=== PATIENT | female | born 1945 | race Caucasian/White ===

== ENCOUNTER → 2017-06-14 | Outpatient (CLI) | payer MEDICARE ==
--- NOTE | 2017-06-14 12:40 | CTL ---
EXAMINATION TYPE: CT Low Dose Lung DATE OF EXAM ORDERED: 06/14/2017 COMPARISON: None HISTORY: . Low Dose CT Lung Screening CT DLP: [address] CTDI: 2.03 mGy IV CONTRAST USED: None. SCREENING VISIT: First visit COMPARISON: None. TECHNIQUE: Low dose computed tomography scan was performed through the chest at 1 millimeter thick se ctions and reconstructed images in the coronal plane at [address] DIAGNOSTIC QUALITY: Satisfactory FINDINGS: LUNG NODULES: Not presentLeft lung: no nodules identified.Right lung: no nodules identified. LUNGS: COPD: Severity: None Fibrosis: Severity:None Lymph nodes: None Other findings: Biapical scarring noted as well as scar formation left lower lobe. RIGHT PLEURAL SPACE: Effusion: None Calcification: None Thickening: None Pneumothorax: None LEFT PLEURAL SPACE: Effusion: None Calcification: None Thickening: None Pneumothorax: None HEART: Heart Size: Mildly enlarged Coronary calcification: Mild Pericardial effusion: None OTHER FINDINGS: Upper abdomen: No significant abnormality Bony thorax: Degenerative changes Supraclavicular region: No significant abnormalityOther: No significant abnormalityI IMPRESSION: Negative FOLLOW UP CT CHEST RECOMMENDATION: Follow-up screening in one year CT LUNG RAD: Category 1 negative LUNG RAD CATEGORY 1
[2017-06-14 12:56] LABS: Basophils # (A) 0.1 k/uL (0-0.2); Basophils % (A) 1 %; CH 31.8; CHCM 31.6; Eosinophils # (A) 0.2 k/uL (0-0.7); Eosinophils % (A) 3 %; HCT 42.5 % (34.0-46.0); HDW 2.37; HGB 13.7 gm/dL (11.4-16.0); Luc # (Auto) 0.06; Luc % (Auto) 1; Lymphocytes # (A) 2.1 k/uL (1.0-4.8); Lymphocytes % (A) 31 %; MCH 32.6 pg (25.0-35.0); MCHC 32.2 g/dL (31.0-37.0); MCV 101.4 fL (80.0-100.0); Macrocytosis Slight; Monocytes # (A) 0.4 k/uL (0-1.0); Monocytes % (A) 6 %; Neutrophils # (A) 3.9 k/uL (1.3-7.7); Neutrophils % (A) 58 %; RBC 4.19 m/uL (3.80-5.40); RDW 15.3 % (11.5-15.5); WBC 6.7 k/uL (3.8-10.6); WBC (Perox) 6.55
[2017-06-14 13:08] LABS: ALT 35 U/L (9-52); AST 26 U/L (14-36); Alkaline Phosphatase 89 U/L (38-126); Anion Gap 8 mmol/L; Blood Urea Nitrogen 11 mg/dL (7-17); Calcium 9.6 mg/dL (8.4-10.2); Carbon Dioxide 24 mmol/L (22-30); Chloride 105 mmol/L (98-107); Cholesterol 210 mg/dL (<200); Creatine Kinase 64 U/L (30-135); Glucose 83 mg/dL (74-99); HDL Cholesterol 65 mg/dL (40-60); Non-African American GFR(MDRD) >60 (>60 ml/min/1.73 sqM); Potassium 4.6 mmol/L (3.5-5.1); Sodium 137 mmol/L (137-145); Total Bilirubin 0.4 mg/dL (0.2-1.3); Total Protein 7.9 g/dL (6.3-8.2); Uric Acid 5.7 mg/dL (3.7-7.4)
[2017-06-14 13:25] LABS: Appearance,Urine Clear (Clear); Bilirubin,Urine Negative (Negative); Glucose,Urine (UA) Negative (Negative); Ketones,Urine Negative (Negative); Leukocyte Esterase,Urine Negative (Negative); Nitrite,Urine Negative (Negative); PH, Urine 6.5 (5.0-8.0); Protein,Urine Negative (Negative); Specific Gravity,Urine 1.005 (1.001-1.035); UA Billing (MACRO vs. MICRO) CHEM; Urobilinogen,Urine <2.0 mg/dL (<2.0)
== END | disposition home or self-care (01) ==
LOC: RADCTMAIN 11:17
PROVIDERS: ATTEND Internal Medicine
DX: Z12.2 Encounter for screening for malignant neoplasm of respiratory organs (principal); F17.200 Nicotine dependence, unspecified, uncomplicated; E03.9 Hypothyroidism, unspecified; M85.80 Other specified disorders of bone density and structure, unspecified site; D12.6 Benign neoplasm of colon, unspecified
CPT/HCPCS: 84439; 80061; 80053; 82550; 84443; 84550; 85025; 81003; 82306; 83036; 36415; G0297

== ENCOUNTER → 2017-07-28 | Outpatient (CLI) | payer MEDICARE ==
--- NOTE | 2017-07-28 09:29 | BD ---
EXAMINATION TYPE: MG DEXA axial skeleton. DATE OF EXAM: 07/28/2017 COMPARISON: 2014 CLINICAL HISTORY: screening osteoporosis Height: 5'2 Weight: 124 FRAX RISK QUESTIONS: Alcohol (3 or more units per day): no Family History (Parent hip fracture): no Glucocorticoids (More than 3mos): no (Ex: prednisone, prednisolone, methylprednisolone, dexamethasone, and hydrocortisone). History of Fracture in Adulthood: no Secondary Osteoporosis: 1. Type 1 Diabetes: no 2. Hyperthyroidism: no 3. Menopause before 45: no 4. Malnutrition: no 5. Chronic liver disease: no Rheumatoid Arthritis: no Current Tobacco Use: yes RISK FACTORS HISTORY OF: Family History of Osteoporosis: Diet low in dairy products/other sources of calcium: Postmenopausal woman: MEDICATIONS: Thyroid Medications: Which medication: Levothyroxine How Lon months Additional Medications: Additional History: EXAM MEASUREMENTS: Bone mineral densitometry was performed using the [employer] [facility]. Bone mineral density as measured about the Lumbar spine is: ----- L1-L4(G/cm2): 1.275 T Score Values are as follows: ----- L2: -0.4 ----- L3: 0.4 ----- L4: 3.5 ----- L1-L4:0.8 Bone mineral density has: Increased 7.2since study of: 03/19/2015 Bone mineral density about the R hip (g/cm2): 0.716 Bone mineral density about the L hip (g/cm2): 0.811 T Score values are as follows: -----R Neck: -2.3 -----L Neck: -1.8 -----R Total: -2.0 -----L Total: -0.8 Bone mineral density has: Decreased -0.1since studyof: 03/19/2015 IMPRESSION: Osteopenia (T Score between -2.5 and -1) as noted by T score values with regards to both hips. There is slightly increased risk of fracture and the patient may be considered for treatment. Re-Screen 2-5 years. NOTE: T-SCORE=SD OF THE YOUNG ADULT MEAN.
--- NOTE | 2017-07-30 11:34 | MM ---
Reason for exam: screening (asymptomatic). Last mammogram was performed 1 year and 2 months ago. History: Patient is postmenopausal. Physical Findings: A clinical breast exam by your physician is recommended on an annual basis and results should be correlated with mammographic findings. MG 3D Screening Mammo W/Cad Bilateral CC and MLO view(s) were taken. XCCL view(s) were taken of the right breast. Prior study comparison: May 18, 2016, bilateral MG 3d screening mammo w/cad. March 19, 2015, bilateral MG screening mammo w CAD. There are scattered fibroglandular densities. No significant changes when compared with prior studies. ASSESSMENT: Negative, BI-RAD 1 RECOMMENDATION: Routine screening mammogram of both breasts in 1 year.
== END | disposition home or self-care (01) ==
LOC: RADMAMWWP 08:33
PROVIDERS: ATTEND Internal Medicine
DX: Z12.31 Encounter for screening mammogram for malignant neoplasm of breast (principal); M85.88 Other specified disorders of bone density and structure, other site
CPT/HCPCS: 77080; 77063; G0202

== ENCOUNTER → 2018-11-01 | Outpatient (CLI) | payer MEDICARE ==
--- NOTE | 2018-11-01 13:15 | MM ---
Reason for exam: screening (asymptomatic). Last mammogram was performed 1 year and 3 months ago. History: Patient is postmenopausal. Physical Findings: A clinical breast exam by your physician is recommended on an annual basis and results should be correlated with mammographic findings. MG 3D Screening Mammo W/Cad Bilateral CC and MLO view(s) were taken. Prior study comparison: July 28, 2017, bilateral MG 3d screening mammo w/cad. May 18, 2016, bilateral MG 3d screening mammo w/cad. The breast tissue is heterogeneously dense. This may lower the sensitivity of mammography. Benign appearing bilateral calcifications. There is chronic nodularity in the left breast, stable. No significant changes when compared with prior studies. ASSESSMENT: Benign, BI-RAD 2 RECOMMENDATION: Routine screening mammogram of both breasts in 1 year.
== END | disposition home or self-care (01) ==
LOC: RADMAMWWP 09:57
PROVIDERS: ATTEND Internal Medicine
DX: Z12.31 Encounter for screening mammogram for malignant neoplasm of breast (principal)
CPT/HCPCS: 77063; 77067

== ENCOUNTER → 2019-06-13 | Outpatient (CLI) | payer MEDICARE, OTHER ==
--- NOTE | 2019-06-13 10:03 | US ---
EXAMINATION TYPE: US carotid duplex BILAT DATE OF EXAM: 06/13/2019 COMPARISON: NONE CLINICAL HISTORY: I65.23 stenosis marium carotid arteries. patient states she had carotids look at 5yrs ago at office and this is a reassessment, no symptoms, no h/o stroke EXAM MEASUREMENTS: RIGHT: Peak Systolic Velocity (PSV) cm/sec ----- Right CCA: 59.4 ----- Right ICA: 56.7 ----- Right ECA: 74.5 ICA/CCA ratio: 1.0 RIGHT: End Diastole cm/sec ----- Right CCA: 15.2 ----- Right ICA: 17.7 ----- Right ECA: 8.1 LEFT: Peak Systolic Velocity (PSV) cm/sec ----- Left CCA: 64.9 ----- Left ICA: 73.6 ----- Left ECA: 92.8 ICA/CCA ratio: 1.1 LEFT: End Diastole cm/sec ----- Left CCA: 16.8 ----- Left ICA: 27.3 ----- Left ECA: 15.7 VERTEBRALS (direction of flow): Right Vertebral: Antegrade Left Vertebral: Antegrade Rhythm: Normal Mild homogeneous plaque with no significant stenosis seen IMPRESSION: Mild degree of grayscale atheromatous plaquing with no sonographically evident hemodynam ically significant stenosis within either visualized carotid arterial system. Criteria for Assigning % of Stenosis / Diameter reduction (Estimation based on the indirect measurements of the internal carotid artery velocities (ICA PSV). 1. Normal (no stenosis)=ICA PSV < 125 cm/s: ratio < 2.0: ICA EDV<40 cm/s. 2. Less than 50% stenosis=ICA PSV < 125 cm/s: ratio < 2.0: ICA EDV<40 cm/s. 3. 50 to 69% stenosis=ICA PSV of 125 to 230 cm/s: ration 2.0 ? 4.0: ICA EDV 40-100 cm/s. 4. Greater than 70% stenosis to near occlusion= ICA PSV > 230 cm/s: ratio > 4.0: ICA EDV > 100 cm/s. 5. Near occlusion= ICA PSV velocities may be low or undetectable: variable ratio and ICA EDV. 6. Total occlusion=unable to detect flow.
--- NOTE | 2019-06-14 10:00 | ECHOF ---
Referral Reason:I34.0 mitral valve insufficiency MEASUREMENTS -------- HEIGHT: 157.5 cm WEIGHT: 55.3 kg BP: 159/75 RVIDd: 2.8 cm (< 3.3) IVSd: 1.1 cm (0.6 - 1.1) LVIDd: 4.2 cm (3.9 - 5.3) LVPWd: 0.9 cm (0.6 - 1.1) IVSs: 1.5 cm LVIDs: 2.6 cm LVPWs: 1.4 cm LA Diam: 3.5 cm (2.7 - 3.8) LAESV Index (A-L): 34.36 ml/m Ao Diam: 3.1 cm (2.0 - 3.7) AV Cusp: 1.8 cm (1.5 - 2.6) MV EXCURSION: 14.946 mm (> 18.000) MV EF SLOPE: 15 mm/s (70 - 150) EPSS: 0.3 cm MV E Ghassan: 1.05 m/s MV DecT: 266 ms MV A Ghassan: 1.31 m/s MV E/A Ratio: 0.80 AV maxP.24 mmHg AV meanP.83 mmHg AR PHT: 618 ms RAP: 5.00 mmHg RVSP: 37.00 mmHg TAPSE: 20.82 mm FINDINGS -------- Sinus rhythm. This was a technically good study. The left ventricular size is normal. There is borderline concentric left ventricular hypertrophy. Overall left ventricular systolic function is normal with, an EF between 60 - 65 %. The diastolic filling pattern indicates impaired relaxation 20.17. The right ventricle is normal in size. LA is moderately dilated 34-39 ml/m2 The right atrium is normal in size. Interatrial and interventricular septum intact. There is mild aortic valve sclerosis. There is icyk-oh-awwbsrqp aortic regurgitation. Xnvg-pv-oipbndeb mitral regurgitation is present. Posterior MV annulus mass Mild tricuspid regurgitation present. There is mild pulmonary hypertension. The right ventricular systolic pressure, as measured by Doppler, is 37.00mmHg. Trace/mild (physiologic) pulmonic regurgitation. The aortic root size is normal. Normal inferior vena cava with normal inspiratory collapse consistent with estimated right atrial pre ssure of 5 mmHg. There is no pericardial effusion. CONCLUSIONS -------- 1. Sinus rhythm. 2. This was a technically good study. 3. The left ventricular size is normal. 4. There is borderline concentric left ventricular hypertrophy. 5. Overall left ventricular systolic function is normal with, an EF between 60 - 65 %. 6. The diastolic filling pattern indicates impaired relaxation 20.17.. 7. The right ventricle is normal in size. 8. LA is moderately dilated 34-39 ml/m2 9. The right atrium is normal in size. 10. Interatrial and interventricular septum intact. 11. There is mild aortic valve sclerosis. 12. There is alvn-yr-losxftcx aortic regurgitation. 13. Ypji-cq-aoryvtzb mitral regurgitation is present. 14. Posterior MV annulus mass 15. Mild tricuspid regurgitation present. 16. There is mild pulmonary hypertension. 17. The right ventricular systolic pressure, as measured by Doppler, is 37.00mmHg. 18. Trace/mild (physiologic) pulmonic regurgitation. 19. The aortic root size is normal. 20. Normal inferior vena cava with normal inspiratory collapse consistent with estimated right atrial pressure of 5 mmHg. 21. There is no pericardial effusion. WEATHERCASTER: Renetta Portillo RDCS
== END | disposition home or self-care (01) ==
LOC: RADUSMAIN 09:07
PROVIDERS: ATTEND Internal Medicine
DX: I08.3 Combined rheumatic disorders of mitral, aortic and tricuspid valves (principal); I27.20 Pulmonary hypertension, unspecified; I65.23 Occlusion and stenosis of bilateral carotid arteries
CPT/HCPCS: 93306; 93880

== ENCOUNTER 2019-07-14 09:51 | Day surgery (SDC) | payer MEDICARE, OTHER ==
[2019-07-13 08:48] VITALS: BMI 21.9
[~2019-07-14 09:51] MED LIST: LACTATED RINGERS 1,000 ML IV SCH; LIDOCAINE 1% 20 ML VIAL (10MG/ML) FOR IV START INTRADERMA PRN
[2019-07-14 10:09] VITALS: TEMP 97.6
[2019-07-14] MEDS ORDERED: PROPOFOL 10 MG/ML 20 ML VIAL IV ONE (11:25)
--- NOTE | 2019-07-14 11:31 | P.GSHP ---
History of Present Illness H&P Date: 07/14/19 Chief Complaint: Colon cancer screening 73-year-old female here today for colonoscopy. Last colonoscopy 5 years ago. Personal history of colon polyps. No bowel related complaints currently. Past Medical History Past Medical History: Thyroid Disorder Additional Past Medical History / Comment(s): Heart Murmur. History of Any Multi-Drug Resistant Organisms: None Reported Past Surgical History: No Surgical Hx Reported Additional Past Surgical History / Comment(s): Colonoscopy. Past Anesthesia/Blood Transfusion Reactions: Family History of Problems w/ Anesthesia, Postoperative Nausea & Vomiting (PONV) Additional Past Anesthesia/Blood Transfusion Reaction / Comment(s): Mom allergic to a lot of anesthetics. Past Psychological History: No Psychological Hx Reported Smoking Status: Current every day smoker Past Alcohol Use History: Occasional Additional Past Alcohol Use History / Comment(s): Has been smoking since 30 yrs old, 7 cigarettes per day. Past Drug Use History: None Reported - Past Family History Father Family Medical History: Cancer Medications and Allergies Home Medications Medication Instructions Recorded Confirmed Type Calcium Carbonate [Calcium] 600 mg PO DAILY 07/13/19 07/13/19 History Levothyroxine Sodium [Synthroid] 75 mcg PO QAM 07/13/19 07/13/19 History Magnesium 200 mg PO DAILY 07/13/19 07/13/19 History Allergies Allergy/AdvReac Type Severity Reaction Status Date / Time No Known Allergies Allergy Verified 07/13/19 08:39 Surgical - Exam Vital Signs Temp Pulse Resp BP Pulse Ox 97.6 F 66 20 144/65 99 07/14/19 10:07 07/14/19 10:07 07/14/19 10:07 07/14/19 10:07 07/14/19 10:07 Physical exam: General: Well-developed, well-nourished HEENT: Normocephalic, sclerae nonicteric Abdomen: Nontender, nondistended Extremities: No edema Neuro: Alert and oriented Assessment and Plan (1) Colon cancer screening Narrative/Plan: Will proceed with colonoscopy. Current Visit: Yes Status: Acute Code(s): Z12.11 - ENCOUNTER FOR SCREENING FOR MALIGNANT NEOPLASM OF COLON SNOMED Code(s): 359604412
--- NOTE | 2019-07-14 11:55 | P.PCN ---
Date of Procedure: 07/14/19 Procedure(s) Performed: PREOPERATIVE DIAGNOSIS: Colon cancer screening with history of polyps POSTOPERATIVE DIAGNOSIS: Tortuous colon otherwise normal PROCEDURE: Colonoscopy ANESTHESIA: MAC SURGEON: Neri Mitchell M.D. SPECIMENS: None ENDOSCOPIC PROCEDURE: The patient was placed on the endoscopy table in the left decubitus position. The Olympus colonoscope was inserted into the anus and passed under direct visualization to the base of the cecum. The appendiceal orifice was visualized. From that point the scope was slowly withdrawn inspecting all surfaces carefully. There were no neoplastic inflammatory or polypoid lesions throughout the cecum, ascending, transverse, descending, sigmoid and rectum. There was no visible diverticulosis noted. The patient's colon was quite lengthy and had significant tortuosity. Digital rectal examination was normal. The patient was taken to the recovery room in stable condition per anesthesia guidelines. RECOMMENDATIONS: Increase fiber. Consider follow-up colonoscopy 5 years.
[2019-07-14 11:57] VITALS: RESP 16
[2019-07-14 12:08] VITALS: BP 146/76; PULSE 65
== END 2019-07-14 12:32 | disposition home or self-care (01) ==
LOC: ORWHC2ENDO 09:51
PROVIDERS: ATTEND Surgery
DX: Z12.11 Encounter for screening for malignant neoplasm of colon (principal); Q43.8 Other specified congenital malformations of intestine; Z86.010 Personal history of colon polyps; E07.9 Disorder of thyroid, unspecified; I65.29 Occlusion and stenosis of unspecified carotid artery; I08.0 Rheumatic disorders of both mitral and aortic valves; F17.210 Nicotine dependence, cigarettes, uncomplicated; Z98.890 Other specified postprocedural states; Z79.890 Hormone replacement therapy; Z79.899 Other long term (current) drug therapy; Z84.89 Family history of other specified conditions; Z80.9 Family history of malignant neoplasm, unspecified
CPT/HCPCS: J2704; G0105

== ENCOUNTER 2019-07-17 07:50 | Day surgery (SDC) | payer MEDICARE, OTHER ==
[2019-07-13 08:38] VITALS: BMI 21.9
[2019-07-17 08:18] VITALS: RESP 16; TEMP 98.1
[2019-07-17] MEDS ORDERED: fentaNYL (PF) 50 MCG/ML 2 ML AMP ONE (08:29)
[2019-07-17] MEDS: BENZOCAINE SPRAY 1 CAN TOPICAL ONE ×2 (08:42→08:47)
[2019-07-17] MEDS ORDERED: MIDAZOLAM 2 MG/2 ML VIAL IV ONE ×2 (08:52→08:55)
[2019-07-17] MEDS: fentaNYL (PF) 50 MCG/ML 2 ML AMP IV ONE ×2 (08:52→08:56)
[2019-07-17] MEDS ORDERED: IV FLUID CONTINUATION 500 ML IV ONE (09:20)
--- NOTE | 2019-07-17 09:45 | ECHOT ---
TRANSESOPHAGEAL ECHOCARDIOGRAM DATE OF SERVICE: July 17, 2019 PERFORMING PHYSICIAN: Leonardo Elmore MD. PROCEDURE PERFORMED: Transesophageal echocardiogram. INDICATION: This is a very pleasant 73-year-old female patient with no significant past medical history, who underwent recently transthoracic echocardiogram by Dr. James and that revealed a mass involving the posterior mitral leaflets. Because of that, she was referred for further cardiac evaluation. I advised the patient to undergo transesophageal echocardiogram for more clarification. COMPLICATIONS: None. LEVEL OF SEDATION: Moderate with sedation length of 15 minutes. PROCEDURE DESCRIPTION: After obtaining an informed consent, the patient was brought to the cardiac oven laborer. Pulse oximetry and heart rate monitors were attached to the patient. The patient was turned into left lateral position. A bite guard was placed after the patient's throat was sprayed using lidocaine. Subsequently the transesophageal echocardiogram was advanced gently and slowly where 2D echocardiogram images as well as color Doppler images as well as pulse and continuous-wave images were performed. Subsequently, the probe was advanced to the stomach to obtain transgastric views. The procedure was performed without any complication. FINDINGS: The left atrium appeared to be severely dilated. The left atrial appendage appeared to be free from any thrombus. The interatrial septum appeared to be intact. The mitral valve appeared to be thickened, especially the posterior mitral leaflets with evidence of moderate mitral regurgitation by color-flow Doppler as well as by quantitative measurements. The left ventricular dimension and systolic function appeared to be within normal limits. The aortic valve is trileaflet valve with evidence of moderate aortic insufficiency. There was moderate tricuspid regurgitation seen and the pulmonary artery systolic pressure was calculated to be 53 mmHg indicating moderate pulmonary hypertension. The aortic root appeared to be within normal limits for dimension. CONCLUSION: 1. Normal left ventricular dimension and systolic function with ejection fraction between 55% to 60% and normal wall motion. 2. There was mild concentric left ventricular hypertrophy seen. 3. Normal right ventricular dimension and systolic function. 4. Severe left atrial dilatation and moderate right atrial dilatation. 5. Thickened posterior mitral leaflet with evidence of moderate mitral insufficiency. 6. Thickened tricuspid valve leaflets with evidence of moderate tricuspid insufficiency. 7. Aortic sclerosis without stenosis with moderate insufficiency as well. 8. Intact interatrial septum without any evidence of shunt. 9. Normal left atrial appendage without any evidence of thrombus. 10.Normal aortic root dimension. 11.No evidence of pericardial effusion. MMODL / IJN: [id number] /
[2019-07-17 10:04] VITALS: BP 148/65; PULSE 65
== END 2019-07-17 10:25 | disposition home or self-care (01) ==
LOC: CATHCVL 07:50
PROVIDERS: ATTEND Internal Medicine Interventional Cardiology
DX: I08.3 Combined rheumatic disorders of mitral, aortic and tricuspid valves (principal); F17.200 Nicotine dependence, unspecified, uncomplicated; Z79.890 Hormone replacement therapy
CPT/HCPCS: 93312; 93320; 93325; J2250; J3010

== ENCOUNTER → 2019-07-31 | Outpatient (CLI) | payer MEDICARE, OTHER ==
--- NOTE | 2019-07-31 13:25 | BD ---
EXAMINATION TYPE: Axial Bone Density DATE OF EXAM: 07/31/2019 COMPARISON: 07/28/2017 CLINICAL HISTORY: M 89.9 Height: 62 Weight: 122 FRAX RISK QUESTIONS: Alcohol (3 or more units per day): no Family History (Parent hip fracture): no Glucocorticoids (More than 3mos): no (Ex: prednisone, prednisolone, methylprednisolone, dexamethasone, and hydrocortisone). History of Fracture in Adulthood: no Secondary Osteoporosis: 1. Type 1 Diabetes: no 2. Hyperthyroidism: no? 3. Menopause before 45: no 4. Malnutrition: no 5. Chronic liver disease: no Rheumatoid Arthritis: no Current Tobacco Use: yes RISK FACTORS HISTORY OF: Family History of Osteoporosis: no Active: yes Diet low in dairy products/other sources of calcium: no Postmenopausal woman: yes Take estrogen and/or progesterone medications: no Lost more than 2 inches in height since high school: possibly...states height was once about 65 inche s Frequent falls: no Poor Health: no Hyperparathyroidism: no Adrenal Insufficiency: no MEDICATIONS: Prednisone or other steroids: no Thyroid Medications: yes Which medication: Levothyroxine How Long: since 2017 Osteoporosis Medications: no Additional Medications: calcium Additional History: originally started thyroid med because of over active thyroid EXAM MEASUREMENTS: Bone mineral densitometry was performed using the [employer]. Bone mineral density as measured about the Lumbar spine is: ----- L1-L4(G/cm2): 1.292 T Score Values are as follows: ----- L2: -0.2 ----- L3: 0.7 ----- L4: 3.6 ----- L1-L4: 0.9 Bone mineral density has: Increased 1.6% since study of: 07/28/2017 Bone mineral density about the R hip (g/cm2): 0.707 Bone mineral density about the L hip (g/cm2): 0.775 T Score values are as follows: -----R Neck: -2.4 -----L Neck: -1.9 -----R Total: -2.0 -----L Total: -1.1 Bone mineral density has: Decreased -2.4% since study of: 07/28/2017 IMPRESSION: Osteopenia (T Score between -2.5 and -1). There is slightly increased risk of fracture and the patient may be considered for treatment. Re-Screen 2-5 years. NOTE: T-SCORE=SD OF THE YOUNG ADULT MEAN.
== END | disposition home or self-care (01) ==
LOC: RADBDWWP 09:11
PROVIDERS: ATTEND Internal Medicine
DX: M85.88 Other specified disorders of bone density and structure, other site (principal)
CPT/HCPCS: 77080

== ENCOUNTER → 2019-07-31 | Outpatient (CLI) | payer MEDICARE, OTHER ==
--- NOTE | 2019-07-31 12:45 | CTL ---
EXAMINATION TYPE: CT Low Dose Lung DATE OF EXAM ORDERED: 07/31/2019 HISTORY: Long-term tobacco use. Lung cancer screening CT DLP: 46.[address] CTDI: 1.5 mGy Automated exposure control for dose reduction was used. SCREENING VISIT: Second study COMPARISON: Low-dose lung screening CT June 14, 2017 TECHNIQUE: Low dose computed tomography scan was performed through the chest at 1 mm thick sections a nd reconstructed images in the coronal plane at [address] DIAGNOSTIC QUALITY: Satisfactory FINDINGS: LUNG NODULES: Present, detailed below: . New 4 mm right upper lobe nodule axial image 122. Slightly more prominent 5 x 3 mm scarlike opacity left lower lobe superior aspect on axial image 89. LUNGS: COPD: Severity: Moderate Fibrosis: Severity: Mild to moderate scattered Lymph nodes: None Other findings: BILATERAL PLEURAL SPACE: Effusion: None Calcification: None Thickening: None Pneumothorax: None HEART: Heart Size: Normal Coronary calcification: Mild Pericardial effusion: Tiny OTHER FINDINGS: Upper abdomen: None. Bony thorax: Moderate to severe multilevel spurring the spine Supraclavicular region: None. Other: Background moderate tricompartmental fibrotic changes in the lung apices redemonstrated but st able. IMPRESSION: Few small new nodules up to 4 mm in size. FOLLOW UP CT CHEST RECOMMENDATION: Annual low-dose lung screening CT CT LUNG RAD: Lung-Rad 2 Benign Appearance or Behavior
== END | disposition home or self-care (01) ==
LOC: RADCTMAIN 11:23
PROVIDERS: ATTEND Internal Medicine
DX: Z12.2 Encounter for screening for malignant neoplasm of respiratory organs (principal); R91.1 Solitary pulmonary nodule; F17.210 Nicotine dependence, cigarettes, uncomplicated

== ENCOUNTER → 2019-12-04 | Outpatient (CLI) | payer MEDICARE, OTHER ==
[~2019-12-04] MED LIST changes: +DENOSUMAB 60 MG/ML 1 ML SYRINGE SQ NR; -LACTATED RINGERS 1,000 ML IV SCH; -LIDOCAINE 1% 20 ML VIAL (10MG/ML) FOR IV START INTRADERMA PRN
[2019-12-04 14:06] VITALS: BP 168/75; PULSE 63; RESP 16; TEMP 98.2
== END | disposition home or self-care (01) ==
LOC: PROCWHC3 13:55
PROVIDERS: ATTEND Internal Medicine
DX: M81.0 Age-related osteoporosis without current pathological fracture (principal)
CPT/HCPCS: 96372; J0897

== ENCOUNTER → 2020-01-01 | Outpatient (CLI) | payer MEDICARE, OTHER | END | disposition home or self-care (01) | LOC: LABWHC1 09:43 | PROVIDERS: ATTEND Internal Medicine | DX: Z53.9 Procedure and treatment not carried out, unspecified reason (principal) ==

== ENCOUNTER → 2020-06-17 | Outpatient (CLI) | payer MEDICARE, OTHER ==
[2020-06-17 13:36] VITALS: BP 147/71; PULSE 66; RESP 16; TEMP 98.1
== END | disposition home or self-care (01) ==
LOC: PROCWHC3 13:25
PROVIDERS: ATTEND Internal Medicine
DX: M81.0 Age-related osteoporosis without current pathological fracture (principal)
CPT/HCPCS: 96372; J0897

== ENCOUNTER → 2020-11-19 | Outpatient (CLI) | payer MEDICARE, OTHER ==
--- NOTE | 2020-11-20 09:58 | MM ---
Reason for exam: screening (asymptomatic). Last mammogram was performed 2 years and 1 month ago. History: Patient is postmenopausal. Physical Findings: A clinical breast exam by your physician is recommended on an annual basis and results should be correlated with mammographic findings. MG 3D Screening Mammo W/Cad Bilateral CC and MLO view(s) were taken. Prior study comparison: November 01, 2018, bilateral MG 3d screening mammo w/cad. July 28, 2017, bilateral MG 3d screening mammo w/cad. The breast tissue is heterogeneously dense. This may lower the sensitivity of mammography. There are benign appearing round calcifications bilaterally. There is no discrete abnormality. ASSESSMENT: Benign, BI-RAD 2 RECOMMENDATION: Routine screening mammogram of both breasts in 1 year.
== END | disposition home or self-care (01) ==
LOC: RADMAMWWP 09:02
PROVIDERS: ATTEND Internal Medicine
DX: Z12.31 Encounter for screening mammogram for malignant neoplasm of breast (principal)
CPT/HCPCS: 77063; 77067

== ENCOUNTER → 2021-07-14 | Outpatient (CLI) | payer MEDICARE, OTHER ==
--- NOTE | 2021-07-14 21:28 | CTL ---
EXAMINATION TYPE: CT Low Dose Lung DATE OF EXAM ORDERED: 07/14/2021 HISTORY: . Lung cancer screening CT DLP: 58.[address] CTDI: 1.70 mGy Automated exposure control for dose reduction was used. SCREENING VISIT: COMPARISON: 07/31/2019 TECHNIQUE: Low dose computed tomography scan was performed through the chest at 1 mm thick sections a nd reconstructed images in multiple planes at 1 mm and [address] DIAGNOSTIC QUALITY: Satisfactory FINDINGS: Biapical pleural thickening. Emphysematous changes are noted. Stable 4 mm nodule right upper lobe. Subsegmental areas of consolidation involving the lung by bases most typical of atelectasis. Nodular density along the left hemidiaphragm left lower lobe measuring 7 mm stable from prior exam. This is m ost likely related to a linear band of density rather than true nodule. Hypertrophic and degenerative changes of the spine. Atherosclerotic change of the vasculature. Calcif ication the tracheobronchial tree. Calcifications in the breasts noted. Coronary artery calcification seen. Atherosclerotic changes aorta which appears of normal caliber. Structures the upper abdomen de monstrate accessory spleen. Small hiatal hernia noted. IMPRESSION: 1. Stable 4 mm right upper lobe pulmonary nodule. 2. COPD with areas of consolidation most typical of scar or chronic atelectasis. CT LUNG RAD AND CT CHEST RECOMMENDATION: Lung-Rad 2 Benign Appearance or Behavior: Continue annual sc reening with LDCT in 12 months.
== END | disposition home or self-care (01) ==
LOC: RADCTMAIN 18:24
PROVIDERS: ATTEND Internal Medicine
DX: Z12.2 Encounter for screening for malignant neoplasm of respiratory organs (principal); R91.1 Solitary pulmonary nodule; J44.9 Chronic obstructive pulmonary disease, unspecified; F17.210 Nicotine dependence, cigarettes, uncomplicated
CPT/HCPCS: 71271

== ENCOUNTER → 2021-08-01 | Outpatient (CLI) | payer MEDICARE, OTHER ==
--- NOTE | 2021-08-01 10:51 | BD ---
EXAMINATION TYPE: Axial Bone Density DATE OF EXAM: 08/01/2021 COMPARISON: 07.31.2019 CLINICAL HISTORY: 75 YR OLD FEMALE.....ICD-10 CODE: M81.0 OSTEOPOROSIS Height: 61.2 Weight: 125 FRAX RISK QUESTIONS: Current Tobacco Use: YES RISK FACTORS HISTORY OF: Family History of Osteoporosis: UNKNOWN Postmenopausal woman: YES, AT AGE 55 YRS OLD Lost more than 2 inches in height since high school: YES Hyperparathyroidism: NO Adrenal Insufficiency: NO MEDICATIONS: Thyroid Medications: YES, SYNTHROID, FOR ABOUT 4 YRS Additional Medications: STATIN FOR CHOLESTEROL, VIT D AND CALCIUM, Additional History: CHOLESTEROL, THYROID EXAM MEASUREMENTS: Bone mineral densitometry was performed using the [employer]. Bone mineral density as measured about the Lumbar spine is: ----- L1-L4(G/cm2): 1.187 T Score Values are as follows: ----- L1: 0.7 ----- L2: -0.8 ----- L3: 0.1 ----- L4: 0.2 ----- L1-L4: 0.1 Bone mineral density has: Decreased -12.9% since study of: 07.31.2019 Bone mineral density about the R hip (g/cm2): 0.743 Bone mineral density about the L hip (g/cm2): 0.931 T Score values are as follows: -----R Neck: -2.1 -----L Neck: -1.4 -----R Total: -2.1 -----L Total: -0.6 Bone mineral density has: Increased 3.1% since study of: 07.31.2019 FRAX%s: THERE IS A 15.1% CHANCE FOR A MAJOR OSTEOPOROTIC FX AND A 6.4% FOR HIPS.....PROBABILITY F OR FX IN 10 YRS TIME IMPRESSION: Osteopenia right femur. NOTE: T-SCORE=SD OF THE YOUNG ADULT MEAN.
== END | disposition home or self-care (01) ==
LOC: RADBDWWP 09:12
PROVIDERS: ATTEND Internal Medicine
DX: M85.89 Other specified disorders of bone density and structure, multiple sites (principal); Z78.0 Asymptomatic menopausal state
CPT/HCPCS: 77080

== ENCOUNTER → 2022-01-20 | Outpatient (CLI) | payer MEDICARE, OTHER ==
[2022-01-20 09:29] VITALS: BP 183/78; PULSE 62; RESP 16; TEMP 98.5
== END ==
LOC: PROCWHC3 09:13
PROVIDERS: ATTEND Internal Medicine
DX: M81.0 Age-related osteoporosis without current pathological fracture (principal); F17.200 Nicotine dependence, unspecified, uncomplicated
CPT/HCPCS: 96372; J0897

== ENCOUNTER 2022-05-04 09:48 | Emergency (ER) | payer MEDICARE, OTHER ==
[2022-05-04 10:00] VITALS: BP 174/89; PULSE 63; RESP 18; TEMP 97.6
[2022-05-04] MEDS ORDERED: DIPH,PERTUS(ACELL)TETVAC-LF 0.5 ML VIAL IM ONE (10:05)
[2022-05-04] MEDS ORDERED: LIDOCAINE 1% INJ 10MG/ML (20 ML MDV) SQ ONE (10:13)
--- NOTE | 2022-05-04 10:16 | ED ---
Wound/Laceration HPI - General Chief Complaint: Wound/Laceration Stated Complaint: thumb lac Time Seen by Provider: 05/04/22 10:03 Source: patient, family, RN notes reviewed, old records reviewed Mode of arrival: ambulatory Limitations: no limitations - History of Present Illness Initial Comments: Pleasant 76 year old woman presents to the emergency room with family complaining of laceration to the left thumb sustained at 7:30 last night on her bow string. Patient states that she came to the ER and waited in the waiting room for over 4 hours and left without being seen. States that she went to urgent care today and they said that they could not sew the wound, directed to come to the emergency room. -: hour(s) (15) Location: other (left thumb) Place: outdoors Patient Tetanus UTD: No Context: accidental, other (bow string) Associated Symptoms: none Treatments Prior to Arrival: bandage - Related Data Home Medications Medication Instructions Recorded Confirmed Calcium Carbonate [Calcium] 600 mg PO DAILY 07/13/19 01/20/22 Levothyroxine Sodium [Synthroid] 75 mcg PO QAM 07/13/19 01/20/22 Magnesium 200 mg PO DAILY 07/13/19 01/20/22 Previous Rx's Medication Instructions Recorded Cephalexin [Keflex] 500 mg PO Q6HR 5 Days #20 cap 05/04/22 Allergies Allergy/AdvReac Type Severity Reaction Status Date / Time No Known Allergies Allergy Verified 05/04/22 09:59 Review of Systems ROS Statement: Those systems with pertinent positive or pertinent negative responses have been documented in the HPI. ROS Other: All systems not noted in ROS Statement are negative. Past Medical History Past Medical History: Thyroid Disorder Additional Past Medical History / Comment(s): Heart Murmur. osteoporosis. History of Any Multi-Drug Resistant Organisms: None Reported Past Surgical History: No Surgical Hx Reported Additional Past Surgical History / Comment(s): Colonoscopy. Past Anesthesia/Blood Transfusion Reactions: Family History of Problems w/ Anesthesia, Postoperative Nausea & Vomiting (PONV) Additional Past Anesthesia/Blood Transfusion Reaction / Comment(s): Mom allergic to a lot of anesthetics. Past Psychological History: No Psychological Hx Reported Smoking Status: Current every day smoker Past Alcohol Use History: None Reported Past Drug Use History: None Reported - Past Family History Father Family Medical History: Cancer General Exam Limitations: no limitations General appearance: alert, in no apparent distress Head exam: Present: atraumatic Respiratory exam: Absent: respiratory distress, accessory muscle use Cardiovascular Exam: Present: regular rate Left Hand Wrist exam: Present: tenderness, laceration (c shaped laceration approx 2cm over the proximal phalanx actively bleeding) Neuro motor exam: Present: wrist extension intact, thumb opposition intact, thumb IP flexion intact, thumb adduction intact Vascular: Present: normal capillary refill. Absent: vascular compromise Neurological exam: Present: alert, oriented X3 Psychiatric exam: Present: normal affect, normal mood Skin exam: Present: warm, dry, normal color. Absent: cyanosis, diaphoretic Course Vital Signs 05/04/22 09:55 Temperature 97.6 F Pulse Rate 63 Respiratory 18 Rate Blood Pressure 174/89 O2 Sat by Pulse 99 Oximetry Procedures - Laceration Laceration #1 Indication: laceration Site: hand (thumb) Description: flap Depth: simple, single layer Anesthetic Used: lidocaine 1% Anesthesia Technique: local infiltration Pre-repair: irrigated extensively Type of Sutures: nylon Size of Sutures: 4-0 Technique: simple, interrupted Patient Tolerated Procedure: well, no complications Medical Decision Making - Medical Decision Making Patient has full range of motion of the thumb, capillary refill less than 2 sec onds, sensation is intact. Case discussed with Dr. Campos and wound was closed with 6 sutures after irrigation with copious amounts of Betadine saline solution. Tetanus shot was updated this visit. Patient was prescribed antibiotics, given dose in ER. Drected to return to the emergency room with any new or concerning symptoms including signs of infection or increased pain. Follow-up with primary care doctor and sutures to be removed in 7-10 days. Disposition Clinical Impression: Laceration Disposition: HOME SELF-CARE Instructions (If sedation given, give patient instructions): Care For Your Stitches (ED), Laceration (ED) Additional Instructions: Keep wound clean and dry. Keep bandage on until morning then remove bandage and put Neosporin on wound and cover. Take antibiotics as prescribed. Suture to be removed in 7-10 days. Follow-up with the primary care doctor this week. Return if any new or concerning symptoms. Prescriptions: Cephalexin [Keflex] 500 mg PO Q6HR 5 Days #20 cap Is patient prescribed a controlled substance at d/c from ED?: No Referrals: Nan James MD [Primary Care Provider] - 1-2 days Time of Disposition: 10:41
[2022-05-04] MEDS ORDERED: CEPHALEXIN 500 MG CAP PO STA (10:46)
== END 2022-05-04 10:53 | disposition home or self-care (01) ==
LOC: EC 09:48
DX: S61.012A Laceration without foreign body of left thumb without damage to nail, initial encounter (principal); E07.89 Other specified disorders of thyroid; F17.200 Nicotine dependence, unspecified, uncomplicated; Z23 Encounter for immunization; Z79.890 Hormone replacement therapy; X58.XXXA Exposure to other specified factors, initial encounter; Y92.89 Other specified places as the place of occurrence of the external cause
CPT/HCPCS: 90715; 12001; 99282; 90471; J2001

== ENCOUNTER → 2022-07-20 | Outpatient (CLI) | payer MEDICARE, OTHER ==
--- NOTE | 2022-07-20 16:42 | CTL ---
EXAMINATION TYPE: CT Low Dose Lung DATE OF EXAM ORDERED: 07/20/2022 HISTORY: . Lung cancer screening CT DLP: 50.4 mGycm Automated exposure control for dose reduction was used. SCREENING VISIT: Subsequent COMPARISON: 07/14/2021 TECHNIQUE: Low dose computed tomography scan was performed through the chest at 1 mm thick sections a nd reconstructed images in the coronal plane at [address] DIAGNOSTIC QUALITY: Satisfactory FINDINGS: LUNG NODULES: Present, detailed below: Biapical thickening is present. There is some pleural thickening in the posterior lateral right apex present previously There is some subtle groundglass opacity within the right mid lung. Series 4 image 169. This may have been present previously. Nodules in the posterior left lung base measuring 0.7 cm. LUNGS: COPD: Severity: None Fibrosis: Severity: None Lymph nodes: None Other findings: Bilateral apical thickening, stable RIGHT PLEURAL SPACE: Effusion: None Calcification: None Thickening: None Pneumothorax: None LEFT PLEURAL SPACE: Effusion: None Calcification: None Thickening: None Pneumothorax: None HEART: Heart Size: Normal Coronary calcification: Mild Pericardial effusion: None OTHER FINDINGS: Upper abdomen: Normal Bony thorax: Normal Supraclavicular region: Normal Other: Ascending thoracic aorta at the main pulmonary artery is 3.4 cm. Main pulmonary artery at the bifurcation is 2.4 cm. IMPRESSION: 1. No suspicious changes for primary or metastatic neoplasm FOLLOW UP CT CHEST RECOMMENDATION: Follow-up low-dose CT chest [address] LUNG RAD: Lung-Rad 2 Benign Appearance or Behavior
--- NOTE | 2022-07-21 07:09 | MM ---
Reason for Exam: Screening (asymptomatic). Last mammogram was performed 1 year(s) and 8 month(s) ago. Patient History: Menarche at age 11. First Full-Term at age 19. Postmenopausal. Patient has history of breast feeding. Risk Values: Criss 5 year model risk: 1.4%. NCI Lifetime model risk: 2.8%. Prior Study Comparison: 07/28/2017 Bilateral Screening Mammogram, [facility]. 11/01/2018 Bilateral Screening Mammogram, [facility]. 11/19/2020 Bilateral Screening Mammogram, [facility]. Tissue Density: The breast tissue is heterogeneously dense. This may lower the sensitivity of mammography. Findings: Analyzed By CAD. There is no suspicious group of microcalcifications or new suspicious mass in either breast. Benign calcifications within both breasts. Stable chronic nodularity within both breasts. No significant change in prior exams. Overall Assessment: Benign, BI-RAD 2 Management: Screening Mammogram of both breasts in 1 year. A clinical breast exam by your physician is recommended on an annual basis and results should be correlated with mammographic findings. Electronically signed and approved by: Dionicio Armando D.O.
== END | disposition home or self-care (01) ==
LOC: RADCTMAIN 16:04
PROVIDERS: ATTEND Internal Medicine
DX: Z12.31 Encounter for screening mammogram for malignant neoplasm of breast (principal); Z12.2 Encounter for screening for malignant neoplasm of respiratory organs; Z87.891 Personal history of nicotine dependence; Z78.0 Asymptomatic menopausal state
CPT/HCPCS: 71271; 77063; 77067

== ENCOUNTER → 2022-07-23 | Outpatient (CLI) | payer MEDICARE, OTHER ==
[2022-07-23 09:26] VITALS: BP 161/81; PULSE 73; RESP 16; TEMP 98.3
== END ==
LOC: PROCWHC3 09:01
PROVIDERS: ATTEND Internal Medicine
DX: M81.0 Age-related osteoporosis without current pathological fracture (principal); F17.200 Nicotine dependence, unspecified, uncomplicated
CPT/HCPCS: 96372; J0897

== ENCOUNTER 2022-12-24 12:46 | Inpatient (IN) | payer MEDICARE, OTHER ==
--- NOTE | 2022-12-24 13:34 | ED ---
General Adult HPI - General Chief complaint: Shortness of Breath Stated complaint: sob - sent by pcp Time Seen by Provider: 12/24/22 12:53 Source: patient, RN notes reviewed, old records reviewed Mode of arrival: ambulatory Limitations: no limitations - History of Present Illness Initial comments: This is a 77-year-old female presents to the emergency department complaining shortness of breath for the last week or so. Patient states she is a smoker and continues to smoke. Patient states she's also had multiple episodes of chest pain lasting anywhere from half an hour to an hour. Patient states when she gets the chest pain it radiates to her right side of her neck and up the back of her head. Patient also states on multiple occasions with chest pain she's been expressing some shortness of breath per patient denies any diaphoretic episode patient denies any nausea. Patient denies any recent fever chills or new cough. Patient states she has a chronic cough from smoking but nothing new. Patient denies any abdominal pain patient denies nausea vomiting diarrhea. Patient denies any headache patient denies any numbness or weakness. - Related Data Home Medications Medication Instructions Recorded Confirmed Calcium Carbonate [Calcium] 600 mg PO DAILY 07/13/19 12/24/22 Atorvastatin [Lipitor] 40 mg PO DAILY 12/24/22 12/24/22 Cholecalciferol (Vitamin D3) 75 mcg PO DAILY 12/24/22 12/24/22 [Vitamin D3 (3000 Iu)] Levothyroxine Sodium [Synthroid] 75 mcg PO DAILY 12/24/22 12/24/22 Allergies Allergy/AdvReac Type Severity Reaction Status Date / Time No Known Allergies Allergy Verified 12/24/22 14:22 Review of Systems ROS Statement: Those systems with pertinent positive or pertinent negative responses have been documented in the HPI. ROS Other: All systems not noted in ROS Statement are negative. Past Medical History Past Medical History: Thyroid Disorder Additional Past Medical History / Comment(s): Heart Murmur. osteoporosis. History of Any Multi-Drug Resistant Organisms: None Reported Past Surgical History: No Surgical Hx Reported Additional Past Surgical History / Comment(s): Colonoscopy. Past Anesthesia/Blood Transfusion Reactions: Family History of Problems w/ Anesthesia, Postoperative Nausea & Vomiting (PONV) Additional Past Anesthesia/Blood Transfusion Reaction / Comment(s): Mom allergic to a lot of anesthetics. Past Psychological History: No Psychological Hx Reported Smoking Status: Current every day smoker Past Alcohol Use History: Rare Past Drug Use History: None Reported - Past Family History Father Family Medical History: Cancer General Exam - General Exam Comments Initial Comments: GENERAL: Patient is well-developed and well-nourished. Patient is nontoxic and well- hydrated and is in mild distress. ENT: Neck is soft and supple. No significant lymphadenopathy is noted. Oropharynx is clear. Moist mucous membranes. Neck has full range of motion without eliciting any pain. EYES: The sclera were anicteric and conjunctiva were pink and moist. Extraocular movements were intact and pupils were equal round and reactive to light. E yelids were unremarkable. PULMONARY: Unlabored respirations. Good breath sounds bilaterally. No audible rales rhonchi or wheezing was noted. CARDIOVASCULAR: There is a regular rate and rhythm without any murmurs gallops or rubs. ABDOMEN: Soft and nontender with normal bowel sounds. SKIN: Skin is clear with no lesions or rashes and otherwise unremarkable. NEUROLOGIC: Patient is alert and oriented x3. Cranial nerves II through XII are grossly intact. Motor and sensory are also intact. Normal speech, volume and content. Symmetrical smile. MUSCULOSKELETAL: Normal extremities with adequate strength and full range of motion. No lower extremity swelling or edema. No calf tenderness. LYMPHATICS: No significant lymphadenopathy is noted PSYCHIATRIC: Normal psychiatric evaluation. Limitations: no limitations Course Vital Signs 12/24/22 12/24/22 12:47 13:30 Temperature 97.9 F Pulse Rate 77 Respiratory 20 17 Rate Blood Pressure 187/88 O2 Sat by Pulse 96 Oximetry Medical Decision Making - Medical Decision Making EKG is interpreted by me. EKG shows sinus rhythm at 63 bpm PA interval 132 QRS is 90 QT interval 380 QTC is 388. Patient's EKG shows no ST segment elevation or depression. Was pt. sent in by a medical professional or institution (, PA, LINE CAMERA OPERATOR, urgent care, hospital, or jail...) When possible be specific @ -Patient was sent in by Dr. James Did you speak to anyone other than the patient for history (EMS, parent, family, police, friend...)? What history was obtained from this source @ -I spoke with Dr. James about the patient's condition and his expectations of her visit today Did you review nursing and triage notes (agree or disagree)? Why? @ -[I reviewed and agree with nursing and triage notes] Were old charts reviewed (outside hosp., previous admission, EMS record, old EKG, old radiological studies, urgent care reports/EKG's, jail records)? Report findings @ -Prior lab work department radiological studies on this patient Differential Diagnosis (chest pain, altered mental status, abdominal pain women, abdominal pain men, vaginal bleeding, weakness, fever, dyspnea, syncope, headache, dizziness, GI bleed, back pain, seizure, CVA, palpatations, mental health, musculoskeletal)? @ -Differential Dyspnea: Coronary syndrome, arrhythmia, tamponade, asthma, COPD, pulmonary embolism, pneumonia, pneumothorax, pulmonary effusion, anaphylaxis, diabetic ketoacidosis, flailed chest, pulmonary contusion, diaphragmatic rupture, anemia, neuromuscular, this is not meant to be an all-inclusive list. EKG interpreted by me (3pts min.). @ -[As above] X-rays interpreted by me (1pt min.). @ -X-ray showed a right sided opacification CT interpreted by me (1pt min.). @ -Computed tomography scan of the chest shows no pulmonary embolism however there is a right pleural effusion which is new. Patient also has a right upper lobe opacification U/S interpreted by me (1pt. min.). @ -[None done] What testing was considered but not performed or refused? (CT, X-rays, U/S, labs)? Why? @ -[None] What meds were considered but not given or refused? Why? @ -[None] Did you discuss the management of the patient with other professionals (professionals i.e. , PA, LINE CAMERA OPERATOR, lab, RT, psych nurse, social service manager, imaging nurse, teacher, home school liaison officer, child welfare caseworker)? Give summary @ -[No] Was smoking cessation discussed for >3mins.? @ -[No] Was critical care preformed (if so, how long)? @ -[No] Were there social determinants of health that impacted care today? How? (Homelessness, low income, unemployed, alcoholism, drug addiction, transportation, low edu. Level, literacy, decrease access to med. care, senior care, rehab)? @ -[No] Was there de-escalation of care discussed even if they declined (Discuss DNR or withdrawal of care, Hospice)? DNR status @ -[No] What co-morbidities impacted this encounter? (DM, HTN, Smoking, COPD, CAD, Cancer, CVA, ARF, Chemo, Hep., AIDS, mental health diagnosis, sleep apnea, morbid obesity)? @ -[None] Was patient admitted / discharged? Hospital course, mention meds given and route, prescriptions, significant lab abnormalities, going to OR and other pertinent info. @ -Patient's CAT scan and x-ray showed new pleural effusion with opacification of the right upper lobe I spoke with Dr. James he wanted the patient admitted he wanted pulmonary consulted and I wrote admitting orders. Undiagnosed new problem with uncertain prognosis? @ -[No] Drug Therapy requiring intensive monitoring for toxicity (Heparin, Nitro, Insulin, Cardizem)? @ -[No] Were any procedures done? @ -[No] Diagnosis/symptom? @ -Lung mass Acute, or Chronic, or Acute on Chronic? @ -Acute Uncomplicated (without systemic symptoms) or Complicated (systemic symptoms)? @ -Complicated Side effects of treatment? @ -[No] Exacerbation, Progression, or Severe Exacerbation? @ -[No] Poses a threat to life or bodily function? How? (Chest pain, [place], [place], pneumonia, PE, COPD, DKA, ARF, appy, cholecystitis, CVA, Diverticulitis, Homicidal, Suicidal, threat to staff... and all critical care pts) @ -Yes this could lead to potential hypoxia and end organ dysfunction - Lab Data Result diagrams: 12/24/22 14:03 12/24/22 14:03 Lab Results 12/24/22 12/24/22 12/24/22 Range/Units 14:03 14:03 14:03 WBC 6.5 (3.8-10.6) k/uL RBC 3.88 (3.80-5.40) m/uL Hgb 12.3 (11.4-16.0) gm/dL Hct 37.9 (34.0-46.0) % MCV 97.7 (80.0-100.0) fL MCH 31.8 (25.0-35.0) pg MCHC 32.6 (31.0-37.0) g/dL RDW 14.4 (11.5-15.5) % Plt Count 397 (150-450) k/uL MPV 7.3 Neutrophils % 80 % Lymphocytes % 13 % Monocytes % 6 % Eosinophils % 1 % Basophils % 0 % Neutrophils # 5.2 (1.3-7.7) k/uL Lymphocytes # 0.8 L (1.0-4.8) k/uL Monocytes # 0.4 (0-1.0) k/uL Eosinophils # 0.0 (0-0.7) k/uL Basophils # 0.0 (0-0.2) k/uL PT 11.0 (9.0-12.0) sec INR 1.1 (<1.2) APTT 30.2 H (22.0-30.0) sec D-Dimer 3.86 H (<0.60) mg/L FEU Sodium 131 L (137-145) mmol/L Potassium 4.5 (3.5-5.1) mmol/L Chloride 96 L (98-107) mmol/L Carbon Dioxide 24 (22-30) mmol/L Anion Gap 11 mmol/L BUN 6 L (7-17) mg/dL Creatinine 0.55 (0.52-1.04) mg/dL Est GFR (CKD-EPI)AfAm >90 (>60 ml/min/1.73 sqM) Est GFR (CKD-EPI)NonAf >90 (>60 ml/min/1.73 sqM) Glucose 94 (74-99) mg/dL Plasma Lactic Acid Trevor (0.7-2.0) mmol/L Calcium 8.8 (8.4-10.2) mg/dL Total Bilirubin 0.4 (0.2-1.3) mg/dL AST 25 (14-36) U/L ALT 18 (4-34) U/L Alkaline Phosphatase 114 (38-126) U/L Troponin I (0.000-0.034) ng/mL Total Protein 7.5 (6.3-8.2) g/dL Albumin 4.2 (3.5-5.0) g/dL 12/24/22 12/24/22 Range/Units 14:03 14:03 WBC (3.8-10.6) k/uL RBC (3.80-5.40) m/uL Hgb (11.4-16.0) gm/dL Hct (34.0-46.0) % MCV (80.0-100.0) fL MCH (25.0-35.0) pg MCHC (31.0-37.0) g/dL RDW (11.5-15.5) % Plt Count (150-450) k/uL MPV Neutrophils % % Lymphocytes % % Monocytes % % Eosinophils % % Basophils % % Neutrophils # (1.3-7.7) k/uL Lymphocytes # (1.0-4.8) k/uL Monocytes # (0-1.0) k/uL Eosinophils # (0-0.7) k/uL Basophils # (0-0.2) k/uL PT (9.0-12.0) sec INR (<1.2) APTT (22.0-30.0) sec D-Dimer (<0.60) mg/L FEU Sodium (137-145) mmol/L Potassium (3.5-5.1) mmol/L Chloride (98-107) mmol/L Carbon Dioxide (22-30) mmol/L Anion Gap mmol/L BUN (7-17) mg/dL Creatinine (0.52-1.04) mg/dL Est GFR (CKD-EPI)AfAm (>60 ml/min/1.73 sqM) Est GFR (CKD-EPI)NonAf (>60 ml/min/1.73 sqM) Glucose (74-99) mg/dL Plasma Lactic Acid Trevor 1.2 (0.7-2.0) mmol/L Calcium (8.4-10.2) mg/dL Total Bilirubin (0.2-1.3) mg/dL AST (14-36) U/L ALT (4-34) U/L Alkaline Phosphatase (38-126) U/L Troponin I <0.012 (0.000-0.034) ng/mL Total Protein (6.3-8.2) g/dL Albumin (3.5-5.0) g/dL Disposition Clinical Impression: Lung mass Disposition: ADMITTED IP TO THIS [facility] Instructions (If sedation given, give patient instructions): How to Stop Smoking (ED) Referrals: Nan James MD [Primary Care Provider] - 1-2 days Time of Disposition: 15:45
[2022-12-24 14:20] LABS: Basophils % (A) 0 %; Eosinophils % (A) 1 %; HCT 37.9 % (34.0-46.0); HGB 12.3 gm/dL (11.4-16.0); Lymphocytes # (A) 0.8 k/uL (1.0-4.8); Lymphocytes % (A) 13 %; MCH 31.8 pg (25.0-35.0); MCHC 32.6 g/dL (31.0-37.0); MCV 97.7 fL (80.0-100.0); Mean Platelet Volume 7.3; Monocytes # (A) 0.4 k/uL (0-1.0); Monocytes % (A) 6 %; Neutrophils # (A) 5.2 k/uL (1.3-7.7); Neutrophils % (A) 80 %; Platelet Count 397 k/uL (150-450); RBC 3.88 m/uL (3.80-5.40); RDW 14.4 % (11.5-15.5); WBC 6.5 k/uL (3.8-10.6)
[2022-12-24 14:30] LABS: ALT 18 U/L (4-34); AST 25 U/L (14-36); African American GFR (CKD) >90 (>60 ml/min/1.73 sqM); Albumin 4.2 g/dL (3.5-5.0); Alkaline Phosphatase 114 U/L (38-126); Anion Gap 11 mmol/L; Blood Urea Nitrogen 6 mg/dL (7-17); Calcium 8.8 mg/dL (8.4-10.2); Carbon Dioxide 24 mmol/L (22-30); Chloride 96 mmol/L (98-107); Glucose 94 mg/dL (74-99); Non-African American GFR(CKD) >90 (>60 ml/min/1.73 sqM); Potassium 4.5 mmol/L (3.5-5.1); Sodium 131 mmol/L (137-145); Total Bilirubin 0.4 mg/dL (0.2-1.3); Total Protein 7.5 g/dL (6.3-8.2)
--- NOTE | 2022-12-24 14:39 | XR ---
EXAMINATION TYPE: XR chest 2V DATE OF EXAM: 12/24/2022 COMPARISON: 03/19/2015, CT 07/20/2022 HISTORY: 77 year-old female shortness of breath, difficulty breathing TECHNIQUE: PA and lateral views FINDINGS: Interval development of extensive opacification medial right upper lobe. Interval development of mode rate right and small left pleural effusions with bibasilar opacities. This obscures the right heart m argin. Background hyperinflation. IMPRESSION: 1. COPD with interval development of extensive medial right upper lobe opacity, possible right upper lobe collapse or pneumonia. A central obstructing mass should be excluded. 2. Additional new moderate right and small left pleural effusions with adjacent atelectasis and/or co nsolidation.
[2022-12-24 14:45] LABS: INR 1.1 (<1.2); Partial Thromboplastin Time 30.2 sec (22.0-30.0)
--- NOTE | 2022-12-24 15:44 | CT ---
EXAMINATION TYPE: CT chest angio for PE CT DLP: 210.5 mGycm, Automated exposure control for dose reduction was used. DATE OF EXAM: 12/24/2022 3:25 PM COMPARISON: CT 07/20/2022 CLINICAL INDICATION:Female, 77 years old with history of Short of breath; SOB TECHNIQUE/CONTRAST: CTA scan of the thorax is performed with IV Contrast, patient injected with 100 mL of Isovue 300, pul monary embolism protocol. MIP images are created and reviewed [facility] FINDINGS: Pulmonary Artery: There is no evidence for a filling defect within the pulmonary vasculature to sugge st acute pulmonary embolism. The pulmonary artery is of normal size. Lungs/Pleura: Bilateral pleural effusions, moderate right and small left. There is associated atelect asis changes. Thickening of interlobular septa is present. There is thought to be atelectasis of the left upper lobe. Upward shift of the right middle lobe Airway: The right upper lobe airway is felt to be opacified series 411 image [id number] Heart: The heart is mildly enlarged for size. Mitral valve annular calcifications are present. Moncada ry artery atherosclerosis is present. Vasculature: No evidence of aortic aneurysm. Mediastinum: No gross evidence of adenopathy. Musculoskeletal: No acute osseous abnormalities Soft Tissues: Unremarkable. Lower neck: No significant findings. Upper Abdomen: No significant findings. IMPRESSION: 1. No evidence of pulmonary embolism. 2. Right upper lobe bronchus opacification of the airway resulting in collapse of the right upper margi ng. Findings suspicious for mucous trapping versus malignancy. 3. Cardiomegaly with bilateral pleural effusions and pulmonary vascular congestion correlate for con gestive heart failure.
[2022-12-25] MEDS: PANTOPRAZOLE 40 MG TABLET PO SCH (07:18)
[2022-12-25] MEDS: LEVOTHYROXINE 75 MCG TAB PO SCH (07:18)
[2022-12-25] MEDS: ATORVASTATIN 40 MG TAB PO SCH (08:49)
[2022-12-25] MEDS: CALCIUM CARBONATE 500 MG CHEWABLE PO SCH (08:49)
[2022-12-25] MEDS: CHOLECALCIFEROL 25 MCG (1000 IU) TABLET PO SCH (08:49)
[2022-12-25] MEDS ORDERED: ENOXAPARIN 40 MG/0.4 ML SYRINGE SQ SCH (09:00)
[2022-12-25 10:50] LABS: Basophils # (A) 0.03 X 10*3/uL (0.00-0.10); Basophils % (A) 0.4 %; Eosinophils # (A) 0.13 X 10*3/uL (0.04-0.35); Eosinophils % (A) 1.8 %; HCT 33.9 % (37.2-46.3); HGB 11.4 g/dL (12.0-15.0); Immature Grans, Automated 0.1 %; Lymphocytes # (A) 1.01 X 10*3/uL (0.90-5.00); Lymphocytes % (A) 14.3 %; MCH 32.2 pg (27.0-32.0); MCHC 33.6 g/dL (32.0-37.0); MCV 95.8 fL (80.0-97.0); Mean Platelet Volume 9.3 fL (9.5-12.2); Monocytes # (A) 0.77 X 10*3/uL (0.20-1.00); Monocytes % (A) 10.9 %; NRBC Per 100 WBC 0 /100 WBCS (0.0-0.0); Neutrophils % (A) 72.5 %; Platelet Count 372 X 10*3/uL (140-440); RBC 3.54 X 10*6/uL (4.10-5.20); RDW 15.3 % (11.5-14.5); WBC 7.05 X 10*3/uL (4.50-10.00)
[2022-12-25 11:00] LABS: African American GFR (CKD) 100.7 (60.0-200.0); Albumin 3.9 g/dL (3.8-4.9); Albumin/Globulin Ratio 1.34 (1.60-3.17); Anion Gap 10.1 mmol/L (10.00-18.00); BUN/Creat Ratio 6.59 Ratio (12.00-20.00); Blood Urea Nitrogen 4.1 mg/dL (9.0-27.0); Calcium 8.6 mg/dL (8.7-10.3); Carbon Dioxide 23.3 mmol/L (20.0-27.5); Globulin 2.9 g/dL (1.6-3.3); Non-African American GFR(CKD) 86.9 (60.0-200.0); Potassium 4.4 mmol/L (3.5-5.5); Total Bilirubin 0.2 mg/dL (0.30-1.20); Total Protein 6.8 g/dL (6.2-8.2)
--- NOTE | 2022-12-25 11:51 | CA ---
Transthoracic Echo Report Name: Bhavya Navarrete Age: 77 Gender: F : 1945 Exam Date: 12/25/2022 09:25 Exam Location: [facility] Ht (in): 62 Wt (lb): 120 Ordering Physician: Nan James MD Attending/Referring Phys: Credit Adjuster Karthik Cano Procedure CPT: Indications: chf Cardiac Hx: Technical Quality: Fair Contrast 1: Total Dose (mL): Contrast 2: Total Dose (mL): MEASUREMENTS (Male / Female) Normal Values 2D ECHO LV Diastolic Diameter PLAX 3.7 cm 4.2 - 5.9 / 3.9 - 5.3 cm LV Systolic Diameter PLAX 2.7 cm IVS Diastolic Thickness 1.1 cm 0.6 - 1.0 / 0.6 - 0.9 cm LVPW Diastolic Thickness 0.9 cm 0.6 - 1.0 / 0.6 - 0.9 cm LV Relative Wall Thickness 0.6 RV Internal Dim ED PLAX 2.6 cm LVOT Diameter 1.9 cm Aortic Root Diameter 3.0 cm LA Systolic Diameter LX 2.8 cm 3.0 - 4.0 / 2.7 - 3.8 cm LV Diastolic Volume MOD BP 44.8 cm??? 67 - 155 / 56 - 104 cm??? LV Systolic Volume MOD BP 10.3 cm??? 22 - 58 / 19 - 49 cm??? LV Ejection Fraction MOD BP 77.1 % >= 55 % LV Diastolic Volume MOD 4C 51.9 cm??? LV Systolic Volume MOD 4C 12.1 cm??? LV Ejection Fraction MOD 4C 76.7 % LV Diastolic Length 4C 6.6 cm LV Systolic Length 4C 5.4 cm LV Diastolic Volume MOD 2C 36.9 cm??? LV Systolic Volume MOD 2C 8.7 cm??? LV Ejection Fraction MOD 2C 76.6 % LV Diastolic Length 2C 6.3 cm LV Systolic Length 2C 5.3 cm LA Volume 43.2 cm??? 18 - 58 / 22 - 52 cm??? Ascending Aorta Diameter 2.8 cm DOPPLER AV Peak Velocity 173.4 cm/s AV Peak Gradient 12.0 mmHg AI Peak Velocity 518.1 cm/s AI Peak Gradient 107.4 mmHg AI Pressure Half Time 582.1 ms MV Peak Velocity 177.8 cm/s MV Peak Gradient 12.6 mmHg MV Mean Velocity 75.1 cm/s MV Mean Gradient 3.0 mmHg MV Velocity Time Integral 50.6 cm MR Peak Velocity 590.6 cm/s MR Peak Gradient 139.5 mmHg Mitral E Point Velocity 101.5 cm/s Mitral A Point Velocity 160.3 cm/s Mitral E to A Ratio 0.6 MV Deceleration Time 258.1 ms MV E' Velocity 4.6 cm/s Mitral E to MV E' Ratio 22.0 TR Peak Velocity 324.8 cm/s TR Peak Gradient 42.2 mmHg Right Ventricular Systolic Press 47.2 mmHg PV Peak Velocity 107.6 cm/s PV Peak Gradient 4.6 mmHg FINDINGS Left Ventricle Left ventricular ejection fraction is estimated at 60-65 %. Right Ventricle Normal right ventricular size. Right Atrium Normal right atrial size. Left Atrium Normal left atrial size. LA Volume Index= 28.1 Mitral Valve Posterior MAC. Moderate MR. Aortic Valve Mild AV sclerosis/calcification. Moderate AI/ Tricuspid Valve Structurally normal tricuspid valve. Moderate TR. RVSP= 48mmhg Pulmonic Valve Pulmonic valve not well visualized. No pulmonic regurgitation. Pericardium Small pericardial effusion. Aorta Normal size aortic root and proximal ascending aorta. CONCLUSIONS Preserved LV size and systolic function small anterior pericardial space, possible small effusion Prominent posterior pericardial stripe Preserved LV size and systolic function Moderate MR, moderate aortic regurgitation and moderate tricuspid regurgitation Previewed by: Dr. Gordy Jaimes MD (Electronically Signed) Final Date: 25 Dec 2022 11:50
--- NOTE | 2022-12-25 12:10 | P.CRDCN ---
History of Present Illness Consult date: 12/25/22 History of present illness: HISTORY OF PRESENT ILLNESS: This is a 77-year-old female with a past medical history significant for hyperlipidemia, hypothyroidism, and valvular heart disease. Patient follows in the office with Dr. Elmore. We have been asked to see the patient in consultation for congestive heart failure. Patient examined at the bedside. Patient presented to the hospital with a chief complaint of shortness of breath. The patient has been evaluated by pulmonary and is scheduled to undergo bronchoscopy with possible biopsy she denies any chest pain or pressure. Vital signs are stable. * EKG reveals sinus mechanism with no signs of acute ischemia * Chest xray COPD with interval development of extensive medial right upper lobe opacity, possible right upper lobe collapse or pneumonia. A central obstructing mass should be excluded. Additional new moderate right and left sided pleural effusions with adjacent atelectasis or consolidation. * Chest CT: Negative for pulmonary was in. Right upper lobe bronchus opacification of the airway resulting in collapse of the right upper lung. Findings suspicious for mucus trapping versus malignancy. Cardio megaly with bilateral pleural effusions and pulmonary vascular congestion. * Laboratory data: WBC 7.05. Hemoglobin 11.4. Platelet count 372. D-dimer 3.86. Sodium 133. Potassium 4.4. BUN 4.1. Creatinine 0.6. ProBNP 146. Troponin negative 1 * Current home cardiac medications include Lipitor 40 mg daily * Echocardiogram completed revealing ejection fraction 60-65% with moderate MR, moderate AR, and moderate TR REVIEW OF SYSTEMS: At the time of my exam: CONSTITUTIONAL: Denies fever or chills. HEENT: Denies blurred vision, vision changes, or eye pain. Denies hemoptysis CARDIOVASCULAR: Denies chest pain. Denies orthopnea. Denies PND. Denies palpitations RESPIRATORY: Reports shortness of breath. GASTROINTESTINAL: Denies abdominal pain. Denies nausea or vomiting. HEMATOLOGIC: Denies bleeding disorders. GENITOURINARY: Denies any blood in urine. SKIN: Denies pruitis. Denies rash. PHYSICAL EXAM: VITAL SIGNS: Reviewed. GENERAL: Well-developed in no acute distress. HEENT: Head is normocephalic. Pupils are equal, round. Sclerae anicteric. Mucous membranes of the mouth are moist. Neck supple. No JVD or thyromegaly LUNGS: Respirations even and unlabored. Lungs essentially clear to auscultation bilaterally. HEART: Regular rate and rhythm. S1 and S2 heard. Systolic murmur noted ABDOMEN: Soft. Nondistended. Nontender. EXTREMITIES: Normal range of motion. No clubbing or cyanosis. Peripheral pulses intact. No lower extremity edema NEUROLOGIC: Awake and alert. Oriented x 3. ASSESSMENT: Shortness of breath Lung mass Congestive heart failure, ruled out, no evidence of acute CHF, BNP 146 Hyperlipidemia Valvular heart disease Hypothyroidism PLAN: 2-D echo obtained and reviewed Patient is stable from a cardiac standpoint No further inpatient recommendations from a cardiology perspective We will sign off. Please reconsult if needed. Nurse practitioner note has been reviewed by physician. Signing provider agrees with the documented findings, assessment, and plan of care. Past Medical History Past Medical History: Thyroid Disorder Additional Past Medical History / Comment(s): Heart Murmur. 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 History of Any Multi-Drug Resistant Organisms: None Reported Past Surgical History: No Surgical Hx Reported Additional Past Surgical History / Comment(s): Colonoscopy. Past Anesthesia/Blood Transfusion Reactions: Family History of Problems w/ Anesthesia, Postoperative Nausea & Vomiting (PONV) Additional Past Anesthesia/Blood Transfusion Reaction / Comment(s): Mom allergic to a lot of anesthetics. Past Psychological History: No Psychological Hx Reported Smoking Status: Current every day smoker Past Alcohol Use History: Rare Additional Past Alcohol Use History / Comment(s): Has been smoking since 30 yrs old, 6-7 cigarettes per day. Past Drug Use History: None Reported - Past Family History Father Family Medical History: Cancer Medications and Allergies Home Medications Medication Instructions Recorded Confirmed Type Calcium Carbonate [Calcium] 600 mg PO DAILY 07/13/19 12/24/22 History Atorvastatin [Lipitor] 40 mg PO DAILY 12/24/22 12/24/22 History Cholecalciferol (Vitamin D3) 75 mcg PO DAILY 12/24/22 12/24/22 History [Vitamin D3 (3000 Iu)] Levothyroxine Sodium [Synthroid] 75 mcg PO DAILY 12/24/22 12/24/22 History Allergies Allergy/AdvReac Type Severity Reaction Status Date / Time No Known Allergies Allergy Verified 12/24/22 14:22 Physical Exam Vitals: Vital Signs Temp Pulse Pulse Resp BP BP Pulse Ox 12/25/22 07:06 98.4 F 68 17 166/78 96 12/25/22 02:10 98.5 F 90 16 139/73 95 12/24/22 22:28 18 12/24/22 21:52 99.0 F 64 16 162/78 95 12/24/22 20:25 68 16 167/83 12/24/22 16:30 68 16 167/83 92 L 12/24/22 13:30 17 12/24/22 12:47 97.9 F 77 20 187/88 96 Intake and Output 12/24/22 12/25/22 12/25/22 22:59 06:59 14:59 Intake Total 250 Balance 250 Intake: Oral 250 Other: # Voids 1 Weight 54.7 kg Results 12/25/22 06:13 12/25/22 06:13 Cardiac Enzymes 12/24/22 12/24/22 12/25/22 Range/Units 14:03 14:03 06:13 AST 25 19 (14-36) U/L Troponin I <0.012 (0.000-0.034) ng/mL Coagulation 12/24/22 Range/Units 14:03 PT 11.0 (9.0-12.0) sec APTT 30.2 H (22.0-30.0) sec CBC 12/24/22 12/25/22 Range/Units 14:03 06:13 WBC 6.5 7.05 (3.8-10.6) k/uL RBC 3.88 3.54 L (3.80-5.40) m/uL Hgb 12.3 11.4 L (11.4-16.0) gm/dL Hct 37.9 33.9 L (34.0-46.0) % Plt Count 397 372 (150-450) k/uL Comprehensive Metabolic Panel 12/24/22 12/25/22 Range/Units 14:03 06:13 Sodium 131 L 133 L (137-145) mmol/L Potassium 4.5 4.4 (3.5-5.1) mmol/L Chloride 96 L 100 (98-107) mmol/L Carbon Dioxide 24 23.3 (22-30) mmol/L BUN 6 L 4.1 L (7-17) mg/dL Creatinine 0.55 0.6 (0.52-1.04) mg/dL Glucose 94 86 (74-99) mg/dL Calcium 8.8 8.6 L (8.4-10.2) mg/dL AST 25 19 (14-36) U/L ALT 18 13 (4-34) U/L Alkaline Phosphatase 114 98 (38-126) U/L Total Protein 7.5 6.8 (6.3-8.2) g/dL Albumin 4.2 3.9 (3.5-5.0) g/dL Current Medications Generic Name Dose Route Start Last Admin Trade Name Rosibel PRN Reason Stop Dose Admin Atorvastatin Calcium 40 mg 12/25/22 09:00 12/25/22 08:49 Atorvastatin 40 Mg Tab PO 40 mg DAILY PRITI Administration Calcium Carbonate/Glycine 500 mg 12/25/22 09:00 12/25/22 08:49 Calcium Carbonate 500 Mg Chewable PO 500 mg DAILY PRITI Administration Cholecalciferol 75 mcg 12/25/22 09:00 12/25/22 08:49 Cholecalciferol 25 Mcg (1000 Iu) Tablet PO 75 mcg DAILY PRITI Administration Levothyroxine Sodium 75 mcg 12/25/22 06:30 12/25/22 07:18 Levothyroxine 75 Mcg Tab PO 75 mcg DAILY@0630 PRITI Administration Pantoprazole Sodium 40 mg 12/25/22 07:30 12/25/22 07:18 Pantoprazole 40 Mg Tablet PO 40 mg [id number] PRITI Administration Intake and Output 12/24/22 12/25/22 12/25/22 22:59 06:59 14:59 Intake Total 250 Balance 250 Intake: Oral 250 Other: # Voids 1 Weight 54.7 kg 12/25/22 06:13 12/25/22 06:13
--- NOTE | 2022-12-25 14:18 | P.CNPUL ---
History of Present Illness Consult date: 12/25/22 Requesting physician: Nan James Reason for consult: dyspnea, cough, abnormal CXR/CT Chief complaint: Shortness of breath, cough, congestion History of present illness: This a very pleasant 77-year-old female patient with a known history of hypothyroidism, hyperlipidemia, chronic and ongoing tobacco dependence of greater than 50 years. He presented to the emergency room yesterday with a two- week history of increasing shortness breath, cough and congestion. She was seen by her PCP yesterday who referred her to the emergency room for further evaluation. She has been having some chest discomfort that radiates on her right side of her neck and up the back of her head. Chest x-ray revealed evidence of COPD with interval development of extensive medial right upper lobe opacity, possible right upper lobe collapse or pneumonia. A central obstructing mass should be excluded. Additional new moderate right and small left pleural effusions with adjacent atelectasis and/or consolidation. CT angiogram ruled out pulmonary embolism. There is a right upper lobe bronchus opacification of the airway resulting in collapse of the right upper lobe. Findings suspicious for mucus trapping versus malignancy. Of note the patient did have a low-dose computed tomography scan in July 2022 that did not reveal any evidence of neoplasm. White count 7.0. Hemoglobin 0.4. Platelets 372. D-dimer 3.86. Sodium 133. Potassium 4.4. Bicarb 23. BUN 4. Creatinine 0.6. Glucose 86. She is seen today in consultation on the regular medical floor. She is currently sitting up in bed. Awake and alert in no acute distress. Maintaining good O2 saturations in the mid 90s on room air. She's been afebrile. Hemodynamically stable. She does have a loose productive cough of clear phlegm. Review of Systems REVIEW OF SYSTEMS: CONSTITUTIONAL: Denies any recent significant weight loss or weight gain. EYES: Denies change in vision. EARS, NOSE, MOUTH, THROAT: Denies headaches, denies sore throat. CARDIOVASCULAR: Positive for right-sided chest pain, no palpitations or syncopal episodes. RESPIRATORY: Positive for shortness of breath, cough, congestion no hemoptysis. GASTROINTESTINAL: Denies change in appetite, denies abdominal pain GENITOURINARY: Denies hematuria, denies infections. MUSKULOSKELETAL: Denies pain, denies swelling. INTEGUMENTARY: Denies rash, denies eczema. NEUROLOGICAL: Denies recent memory loss, no recent seizure activity. PSYCHIATRIC: Denies anxiety, denies depression. HEMATOLOGIC/LYMPHATIC: Denies anemia, denies enlarged lymph nodes. Past Medical History Past Medical History: Thyroid Disorder Additional Past Medical History / Comment(s): Heart Murmur. 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 History of Any Multi-Drug Resistant Organisms: None Reported Past Surgical History: No Surgical Hx Reported Additional Past Surgical History / Comment(s): Colonoscopy. Past Anesthesia/Blood Transfusion Reactions: Family History of Problems w/ Anesthesia, Postoperative Nausea & Vomiting (PONV) Additional Past Anesthesia/Blood Transfusion Reaction / Comment(s): Mom allergic to a lot of anesthetics. Past Psychological History: No Psychological Hx Reported Smoking Status: Current every day smoker Past Alcohol Use History: Rare Additional Past Alcohol Use History / Comment(s): Has been smoking since 30 yrs old, 6-7 cigarettes per day. Past Drug Use History: None Reported - Past Family History Father Family Medical History: Cancer Medications and Allergies Home Medications Medication Instructions Recorded Confirmed Type Calcium Carbonate [Calcium] 600 mg PO DAILY 07/13/19 12/24/22 History Atorvastatin [Lipitor] 40 mg PO DAILY 12/24/22 12/24/22 History Cholecalciferol (Vitamin D3) 75 mcg PO DAILY 12/24/22 12/24/22 History [Vitamin D3 (3000 Iu)] Levothyroxine Sodium [Synthroid] 75 mcg PO DAILY 12/24/22 12/24/22 History Allergies Allergy/AdvReac Type Severity Reaction Status Date / Time No Known Allergies Allergy Verified 12/24/22 14:22 Physical Exam Vitals: Vital Signs Temp Pulse Pulse Resp BP BP Pulse Ox 12/25/22 07:06 98.4 F 68 17 166/78 96 12/25/22 02:10 98.5 F 90 16 139/73 95 12/24/22 22:28 18 12/24/22 21:52 99.0 F 64 16 162/78 95 12/24/22 20:25 68 16 167/83 12/24/22 16:30 68 16 167/83 92 L Intake and Output 12/24/22 12/25/22 12/25/22 22:59 06:59 14:59 Intake Total 250 Balance 250 Intake: Oral 250 Other: # Voids 1 Weight 54.7 kg GENERAL EXAM: Alert, active, very pleasant 77-year-old female, on room air, fairly comfortable in no apparent distress. HEAD: Normocephalic. EYES: Normal reaction of pupils, equal size. NOSE: Clear with pink turbinates. THROAT: No erythema or exudates. NECK: No masses, no JVD. CHEST: No chest wall deformity. LUNGS: Equal air entry with scattered rhonchi throughout the right lung field, few crackles in the bilateral bases, diminished. CVS: S1 and S2 normal with no audible murmur, regular rhythm. ABDOMEN: No hepatosplenomegaly, normal bowel sounds, no guarding or rigidity. SPINE: No scoliosis or deformity SKIN: No rashes CENTRAL NERVOUS SYSTEM: No focal deficits, tone is normal in all 4 extremities. EXTREMITIES: There is no peripheral edema. No clubbing, no cyanosis. Peripheral pulses are intact. Results - Laboratory Findings CBC and BMP: 12/25/22 06:13 12/25/22 06:13 PT/INR, D-dimer PT 11.0 sec (9.0-12.0) 12/24/22 14:03 INR 1.1 (<1.2) 12/24/22 14:03 D-Dimer 3.86 mg/L FEU (<0.60) H 12/24/22 14:03 Abnormal lab findings: Abnormal Labs 12/24/22 12/24/22 12/24/22 14:03 14:03 14:03 RBC Hgb Hct MCH RDW MPV Lymphocytes # 0.8 L APTT 30.2 H D-Dimer 3.86 H Sodium 131 L Chloride 96 L BUN 6 L BUN/Creatinine Ratio Calcium Total Bilirubin Albumin/Globulin Ratio 12/25/22 12/25/22 06:13 06:13 RBC 3.54 L Hgb 11.4 L Hct 33.9 L MCH 32.2 H RDW 15.3 H MPV 9.3 L Lymphocytes # APTT D-Dimer Sodium 133 L Chloride BUN 4.1 L BUN/Creatinine Ratio 6.59 L Calcium 8.6 L Total Bilirubin 0.20 L Albumin/Globulin Ratio 1.34 L - Diagnostic Findings Chest x-ray: image reviewed CT scan - chest: image reviewed Assessment and Plan Assessment: Dyspnea with cough and congestion secondary to right upper lobe collapse with seen right upper lobe bronchus opacification the airway. Findings suspicious for mucus trapping versus malignancy. The patient did have a low-dose computed tomography scan of the chest from July 2022 that did not reveal any evidence of malignancy. Pulmonary embolism ruled out. Pro-calcitonin pending. Bilateral pleural effusions with some pulmonary vascular congestion. Echo cardiogram recently revealed preserved left ventricular size and systolic function. Small effusion. Moderate mitral regurgitation, moderate aortic regurgitation, moderate tricuspid regurgitation. Chronic and ongoing tobacco dependence of greater than 50 years Hypothyroidism Hyperlipidemia Plan: The patient was seen and evaluated Chest x-ray, CAT scan, labs and medications reviewed Echocardiogram reviewed Procalcitonin pending Educated regarding the use the incentive spirometer Plan for bronchoscopy with BAL and possible biopsies in a.m. Patient verbalized understanding and is agreeable to the plan Educated regarding the importance of complete smoking cessation NicoDerm patch will be offered We will continue to follow and make further recommendations based on her clinical status I have personally seen and examined the patient, performed the documentation and the assessment and plan as written. Number of minutes spent on the visit: 20.
[2022-12-25] MEDS: PIPERACILLIN-TAZOBACTAM 3.375 GM in SODIUM CHLORIDE 0.9% 100 ML IVPB SCH ×2 (15:25→23:21)
[2022-12-25] MEDS: NICOTINE 14MG/24HR PATCH TRANSDERM SCH (15:25)
[2022-12-25] MEDS: IPRATROPIUM-ALBUTEROL 3 ML NEB INHALATION SCH ×2 (16:17→20:13)
[2022-12-25] MEDS: SYMBICORT 160-4.5 MCG INHALER INHALATION SCH (20:13)
[2022-12-26] MEDS: LEVOTHYROXINE 75 MCG TAB PO SCH (03:00)
[2022-12-26] MEDS: PANTOPRAZOLE 40 MG TABLET PO SCH (03:00)
[2022-12-26] MEDS: IPRATROPIUM-ALBUTEROL 3 ML NEB INHALATION SCH ×4 (08:36→20:22)
[2022-12-26] MEDS: SYMBICORT 160-4.5 MCG INHALER INHALATION SCH ×2 (08:36→20:22)
[2022-12-26] MEDS: PIPERACILLIN-TAZOBACTAM 3.375 GM in SODIUM CHLORIDE 0.9% 100 ML IVPB SCH (09:07)
[2022-12-26] MEDS ORDERED: PROPOFOL 10 MG/ML 20 ML VIAL IV ONE (09:40)
[2022-12-26] MEDS ORDERED: LIDOCAINE 2% INJ 20 MG/ML (2 ML VIAL) ONE (09:40)
--- NOTE | 2022-12-26 10:03 | P.HPIM ---
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, history of mitral regurgitation and aortic regurgitation, history of acidosis currently on protein, patient presented to the office yesterday with increased shortness of breath with exertion associated with minimal coughing of phlegm production, no hemoptysis no pleurisy, patient oxygenation dropped 91% with exertion, she stated that she has not been able to keep her breath, she has been not feeling well over the last week or so, she was directed to the emergency department for evaluation she underwent computed tomography scan of the chest that was negative for pulmonary was however it did show evidence of right upper lobe bronchus mucous plug versus a mass in the right upper lobe, also there was evidence of moderate right effusion left or effusion with left upper lobe atelectasis, and right middle lobe up or shift, these are all new finding since her last computed tomography scan that was done in July 2022. patient was admitted to the hospital for evaluation for him at [facility], consultation was obtained from patient was started on DuoNeb 3 mg nebulization 4 times every day as well as Symbicort 160/4.5 g 2 puffs inhalation twice every day, she has not been requiring oxygen at this point in time, patient's family were updated about her current condition REVIEW OF SYSTEMS: Constitutional: No documented fever, no chills, no night sweats. No weight change. No weakness, fatigue or lethargy. No daytime sleepiness. HEENT: No headache. No blurred vision or double vision, no loss of vision. No loss of Hearing, no ringing in the ears, no dizziness. No nasal drainage or congestion. No epistaxis. No sore throat. Lungs: positive for shortness of breath, no cough, minimal sputum production. No wheezing. Reports dyspnea with activity. Cardiovascular: No chest pain, no lower extremity edema. No palpitations. No paroxysmal nocturnal dyspnea. No orthopnea. No lightheadedness or dizziness. No syncopal episodes. Abdominal: Reports abdominal pain. No nausea, vomiting. No diarrhea. No constipation. No bloody or tarry stools reports loss of appetite. Genitourinary: No dysuria, increased frequency, urgency. No urinary retention. Musculoskeletal: No myalgias. No muscle weakness, no gait dysfunction, no frequent falls. No back pain. No neck pain. Integumentary: No wounds, no lesions. No rash or pruritus. No unusual bruising. No change in hair or nails. Neurologic: No aphasia. No facial droop. No change in mentation. No head injury. No headache. No paralysis. No paresthesia. Psychiatric: No depression. No anxiety. No mood swings. Endocrine: No abnormal blood sugars. No weight change. PAST MEDICAL HISTORY: Mixed hyperlipidemia. Hypothyroidism. Osteoporosis. Mitral regurgitation and aortic regurgitation. Osteoarthritis. COPD PAST SURGICAL HISTORY: Colonoscopy both . SOCIAL HISTORY: Patient smokes half a pack every day she continues to smoke despite multiple attempts and counseling regarding smoking cessation she drinks socially, she denies any marijuana use, she denies tremors, she lives with , she has a very good family support. FAMILY HISTORY: father at age of 86 from pancreatic cancer mother at age 94 of congestive heart failure patient has one brother and 5 daughters no major medical problems. PHYSICAL EXAMINATION: General: 77-year-old female laying down in bed in no current distress. HEENT: Head is atraumatic, normocephalic, pupils were equal round reactive to light and recommendation, extraocular muscle movement were intact, sclera nonicteric, conjunctivae were pale, mucous membranes of the mouth are somewhat dry. Neck: Supple, no JVP, normal carotid upstroke bilaterally, no lymphadenopathy. Chest: Decreased breath sounds at the bases, few rhonchi, no expiratory wheezes, no chest wall tenderness, no intercostal retractions. Heart: First heart sound is normal, second heart sounds normal. There is systolic ejection murmur 2/6 located in the left sternal border. Abdomen: Soft, nontender, nondistended, positive bowel sounds. Extremities: There is no edema no calf tenderness DP +2 bilaterally. Neurologic examination: Patient is awake alert and oriented x3 cranial nerves II-12 appear grossly intact, muscle power were 5 out of 5 in upper extremities and 5 out of 5 in bilateral lower extremities, deep tendon reflexes normal bilaterally. ASSESSMENT AND PLAN: 1. Right upper lobe bronchus mass versus because plug. With associated moderate right-sided pleural effusion and small left-sided pleural effusion and left upper lobe atelectasis. Patient is scheduled to go for a bronchoscopy tomorrow morning for evaluation and delineation of the obstructing lesion in the right upper lobe bronchus, with also biopsy and BAL, continue patient on oxygen support as needed, continue DuoNeb 3 mg nebulization 4 times every day, start patient on Symbicort 160/4.5 g 2 puffs ablation twice every day, start the patient on Zosyn 3.375 g IV piggyback every 6 hours. 2. COPD patient would be to have orthostasis as an outpatient, continue patient on DuoNeb 3 mL nebulization 4 times every day, continue patient on Symbicort 160/445 g 2 puffs inhalation twice daily, patient was counseled on smoking cessation again. 3. Chronic tobacco use and dependence. Smoking cessation and counseling an increased risk of CAD, CVA and malignancy per 4. Bilateral pleural effusion. Rule out malignant effusion rule out heart failure with or its preserved ejection fraction or reduced ejection fraction echocardiogram will be obtained, patient did have a history of mitral regurgitat ion and aortic regurgitation cariology consultation obtained. 5. Hypothyroidism. Continue patient on levothyroxine 88 g once every day. 6. Mixed hyperlipidemia. Continue atorvastatin 40 mg daily. 7. Osteoporosis. Currently on calcium 1200 mg every day, vitamin D 3 2000 units once every day, and Prolia 60 mg subcutaneous once every 6 month bone density scans up-to-date. 8. DVT prophylais. Lovenox 40 mg Sc daily. 9. GI prophylaxis. Protonix 40 mg once every day. 10. Admit to inpatient. Estimate a length of stay 2 midnights. 11. Patient is full code. Past Medical History Past Medical History: Thyroid Disorder Additional Past Medical History / Comment(s): Heart Murmur. 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 History of Any Multi-Drug Resistant Organisms: None Reported Past Surgical History: No Surgical Hx Reported Additional Past Surgical History / Comment(s): Colonoscopy. Past Anesthesia/Blood Transfusion Reactions: Family History of Problems w/ Anesthesia, Postoperative Nausea & Vomiting (PONV) Additional Past Anesthesia/Blood Transfusion Reaction / Comment(s): Mom allergic to a lot of anesthetics. Past Psychological History: No Psychological Hx Reported Smoking Status: Current every day smoker Past Alcohol Use History: Rare Additional Past Alcohol Use History / Comment(s): Has been smoking since 30 yrs old, 6-7 cigarettes per day. Past Drug Use History: None Reported - Past Family History Father Family Medical History: Cancer Medications and Allergies Home Medications Medication Instructions Recorded Confirmed Type Calcium Carbonate [Calcium] 600 mg PO DAILY 07/13/19 12/24/22 History Atorvastatin [Lipitor] 40 mg PO DAILY 12/24/22 12/24/22 History Cholecalciferol (Vitamin D3) 75 mcg PO DAILY 12/24/22 12/24/22 History [Vitamin D3 (3000 Iu)] Levothyroxine Sodium [Synthroid] 75 mcg PO DAILY 12/24/22 12/24/22 History Allergies Allergy/AdvReac Type Severity Reaction Status Date / Time No Known Allergies Allergy Verified 12/24/22 14:22 Physical Exam Vitals: Vital Signs Temp Pulse Pulse Resp BP Pulse Ox 12/26/22 08:51 74 12/26/22 08:38 73 12/26/22 07:40 97.9 F 67 16 156/80 96 12/26/22 01:35 98.1 F 70 16 136/73 94 L 12/25/22 20:24 78 12/25/22 20:15 72 12/25/22 19:14 98.2 F 70 16 147/77 96 12/25/22 16:52 95 12/25/22 16:31 80 12/25/22 16:18 80 12/25/22 14:36 97.9 F 68 15 156/80 95 Intake and Output 12/25/22 12/26/22 12/26/22 22:59 06:59 14:59 Other: # Voids 4 2 Weight 55.6 kg Results CBC & Chem 7: 12/25/22 06:13 12/25/22 06:13 Labs: Abnormal Lab Results - Last 24 Hours (Table) 12/25/22 12/25/22 Range/Units 06:13 06:13 RBC 3.54 L (4.10-5.20) X 10*6/uL Hgb 11.4 L (12.0-15.0) g/dL Hct 33.9 L (37.2-46.3) % MCH 32.2 H (27.0-32.0) pg RDW 15.3 H (11.5-14.5) % MPV 9.3 L (9.5-12.2) fL Sodium 133 L (135-145) mmol/L BUN 4.1 L (9.0-27.0) mg/dL BUN/Creatinine Ratio 6.59 L (12.00-20.00) Ratio Calcium 8.6 L (8.7-10.3) mg/dL Total Bilirubin 0.20 L (0.30-1.20) mg/dL Albumin/Globulin Ratio 1.34 L (1.60-3.17) g/dL Thrombosis Risk Factor Assmnt - Choose All That Apply Any of the Below Risk Factors Present?: Yes Each Factor Represents 1 point: Abnormal pulmonary function (COPD), Heart failure (<1month), Serious lung disease incl. pneumonia (< 1month) Each Risk Factor Represents 3 Points: Age 75 years or older Thrombosis Risk Factor Assessment Total Risk Factor Score: 6 Thrombosis Risk Factor Assessment Level: High Risk
[2022-12-26] MEDS ORDERED: IV FLUID CONTINUATION 300 ML IV ONE (10:31)
[2022-12-26] MEDS ORDERED: LIDOCAINE 2% INJ 20 MG/ML INTRATRACH ONE (10:50)
[2022-12-26] MEDS: NICOTINE 14MG/24HR PATCH TRANSDERM SCH (10:55)
[2022-12-26] MEDS: ATORVASTATIN 40 MG TAB PO SCH (10:58)
[2022-12-26] MEDS: CALCIUM CARBONATE 500 MG CHEWABLE PO SCH (10:58)
[2022-12-26] MEDS: CHOLECALCIFEROL 25 MCG (1000 IU) TABLET PO SCH (10:58)
--- NOTE | 2022-12-26 11:04 | PCN ---
PROCEDURE NOTE PULMONARY/CRITICAL CARE PROCEDURE NOTE: PROCEDURES PERFORMED: Bronchoscopy with airway examination and therapeutic lavage, BAL, endobronchial and transbronchial biopsies, brushes. PREOPERATIVE DIAGNOSIS: Rule out lung cancer, lung mass. POSTOPERATIVE DIAGNOSIS: Rule out lung cancer, lung mass. COMMERCIAL LOAN PROCESSOR: First surgical elastic knitter was Dr. Bolden. DESCRIPTION OF PROCEDURE: There was informed consent and universal timeout. YOUTH DIRECTOR provided anesthesia. The patient's procedure was done in room #1 [facility]. The procedure was again bronchoscopy with airway examination and therapeutic lavage, BAL, brushes, biopsies, etc. The patient was sedated and being fully monitored. Next the bronchoscope was placed transorally using a bite block. Transnasal approach was not able to be accomplished. Once down into the windpipe, we did a thorough evaluation. Initially, we evaluated the left lung. The left upper lobe and its 2 segments of lingula and its 2 segments in the left lower lobe and its 4 segments all appeared relatively normal, although the jessica the left upper lobe from the left lower lobe, appeared to be abnormal. It could just be related to bronchitis or some airways inflammation, but nonetheless, we did brush this area just to make sure. There was no dominant mass or tumor. That jessica did appear a bit thicker than normal. On the right side, after topicalization, it was noted that there was a large endobronchial mass at the proximal right mainstem. It extended more distally into the area of the right upper lobe and down into the bronchus intermedius. This is the area we chose to sample. Initially, we did brushes of this lesion in the proximal right mainstem and we did endobronchial and transbronchial biopsies in this area. We did multiple biopsies. Finally, we washed the area. All the specimens will be sent to the laboratory for analysis. We did take pictures. We shared the pictures with the family. We did talk to the family after the procedure. The lesion looks to be malignant. We will know more once we have the actual pathology report. The patient tolerated the procedure well without any complication. The bronchoscope was withdrawn after the procedure, and the patient will be recovered. MMODL / IJN: [id number] /
--- NOTE | 2022-12-26 11:34 | P.PN ---
Subjective Progress Note Date: 12/26/22 This a very pleasant 77-year-old female patient with a known history of hypothyroidism, hyperlipidemia, chronic and ongoing tobacco dependence of greater than 50 years. He presented to the emergency room yesterday with a two- week history of increasing shortness breath, cough and congestion. She was seen by her PCP yesterday who referred her to the emergency room for further evaluation. She has been having some chest discomfort that radiates on her right side of her neck and up the back of her head. Chest x-ray revealed evidence of COPD with interval development of extensive medial right upper lobe opacity, possible right upper lobe collapse or pneumonia. A central obstructing mass should be excluded. Additional new moderate right and small left pleural effusions with adjacent atelectasis and/or consolidation. CT angiogram ruled out pulmonary embolism. There is a right upper lobe bronchus opacification of the airway resulting in collapse of the right upper lobe. Findings suspicious f or mucus trapping versus malignancy. Of note the patient did have a low-dose computed tomography scan in July 2022 that did not reveal any evidence of neoplasm. White count 7.0. Hemoglobin 0.4. Platelets 372. D-dimer 3.86. Sodium 133. Potassium 4.4. Bicarb 23. BUN 4. Creatinine 0.6. Glucose 86. She is seen today in consultation on the regular medical floor. She is currently sitting up in bed. Awake and alert in no acute distress. Maintaining good O2 saturations in the mid 90s on room air. She's been afebrile. Hemodynamically stable. She does have a loose productive cough of clear phlegm. The patient is seen today's 12/26/2022 in follow-up on the regular medical floor. She is awake and alert in no acute distress. Sitting up in bed. Maintaining O2 saturations in the 90s on room air. Afebrile. Hemodynamically stable. Plan is for bronchoscopy with BAL and possible biopsies today. Pro- calcitonin was normal at 0.04. Zosyn will be discontinued. She is continued on DuoNeb inhalations, Symbicort. NicoDerm patches in place. Objective - Vital Signs Vital signs: Vital Signs Temp 97.9 F 12/26/22 07:40 Pulse 74 12/26/22 08:51 Resp 16 12/26/22 07:40 BP 156/80 12/26/22 07:40 Pulse Ox 96 12/26/22 07:40 FiO2 Intake & Output 12/25/22 12/26/22 12/26/22 18:59 06:59 18:59 Intake Total 300 Balance 300 Weight 55.6 kg Intake: IV 300 Other: # Voids 4 2 - Exam GENERAL EXAM: Alert, pleasant 77-year-old female, on room air, comfortable in no apparent distress. HEAD: Normocephalic. EYES: Normal reaction of pupils, equal size. NOSE: Clear with pink turbinates. THROAT: No erythema or exudates. NECK: No masses, no JVD. CHEST: No chest wall deformity. LUNGS: Equal air entry with scattered rhonchi throughout the right lung field, few crackles in the bilateral bases, diminished. CVS: S1 and S2 normal with no audible murmur, regular rhythm. ABDOMEN: No hepatosplenomegaly, normal bowel sounds, no guarding or rigidity. SPINE: No scoliosis or deformity SKIN: No rashes CENTRAL NERVOUS SYSTEM: No focal deficits, tone is normal in all 4 extremities. EXTREMITIES: There is no peripheral edema. No clubbing, no cyanosis. Peripheral pulses are intact. - Labs CBC & Chem 7: 12/25/22 06:13 12/25/22 06:13 Assessment and Plan Assessment: Dyspnea with cough and congestion secondary to right upper lobe collapse with seen right upper lobe bronchus opacification the airway. Findings suspicious for mucus trapping versus malignancy. The patient did have a low-dose computed tomography scan of the chest from July 2022 that did not reveal any evidence of malignancy. Pulmonary embolism ruled out. Pro-calcitonin normal at 0.04. Zosyn discontinued.. Bilateral pleural effusions with some pulmonary vascular congestion. Echocardiogram recently revealed preserved left ventricular size and systolic function. Small effusion. Moderate mitral regurgitation, moderate aortic regurgitation, moderate tricuspid regurgitation. Chronic and ongoing tobacco dependence of greater than 50 years Hypothyroidism Hyperlipidemia Plan: The patient was seen and evaluated Labs and medications reviewed Procalcitonin normal at 0.04, Zosyn discontinued Plan for bronchoscopy with BAL and possible biopsies today Patient verbalized understanding and is agreeable to the plan We will continue to follow I have personally seen and examined the patient, performed the documentation and the assessment and plan as written. Number of minutes spent on the visit: 10.
[2022-12-26] MEDS ORDERED: IBUPROFEN 600 MG TAB PO PRN (12:28)
--- NOTE | 2022-12-26 12:53 | XR ---
EXAMINATION TYPE: XR chest 1V DATE OF EXAM: 12/26/2022 CLINICAL HISTORY: Difficulty breathing progress study. TECHNIQUE: Single AP portable upright view of the chest is obtained. COMPARISON: Chest x-ray and CT from 2 days earlier FINDINGS: There are small to moderate-sized right greater than left pleural effusions with associate d bibasilar opacities. There is persistent right upper lung medial opacity. Stable mild cardiomegaly. Osseous structures are intact. IMPRESSION: Mild cardiomegaly with small to moderate size right greater than left pleural effusions a nd bibasilar opacity favoring atelectasis. Persistent right upper lobe mass or neoplasm. No significa nt change from most recent x-ray.
[2022-12-26] MEDS: FUROSEMIDE 10 MG/ML 4 ML VIAL IV SCH ×2 (12:57→22:06)
--- NOTE | 2022-12-26 13:13 | P.PN ---
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, history of mitral regurgitation and aortic regurgitation, history of acidosis currently on protein, patient presented to the office yesterday with increased shortness of breath with exertion associated with minimal coughing of phlegm production, no hemoptysis no pleurisy, patient oxygenation dropped 91% with exertion, she stated that she has not been able to keep her breath, she has been not feeling well over the last week or so, she was directed to the emergency department for evaluation she underwent computed tomography scan of the chest that was negative for pulmonary was however it did show evidence of right upper lobe bronchus mucous plug versus a mass in the right upper lobe, also there was evidence of moderate right effusion left or effusion with left upper lobe atelectasis, and right middle lobe up or shift, these are all new finding since her last computed tomography scan that was done in July 2022. patient was admitted to the hospital for evaluation for him at [facility], consultation was obtained from patient was started on DuoNeb 3 mg nebulization 4 times every day as well as Symbicort 160/4.5 g 2 puffs inhalation twice every day, she has not been requiring oxygen at this point in time, patient's family were updated about her current condition 12/26: Patient is sitting up in bed appears to be admitted more short of breath today, she is currently 95% and a visit cannula, she underwent bronchoscopy which showed a large right main stem bronchial mass extending into the right upper bronchus suggestive of malignancy biopsies were obtained and BAL was done, patient is complaining of some pain after the bronchoscopy as well as more shortness breath, final result still await the final result of the pathology which may take up to 4 days, I will start the patient on Lasix 40 mg IV push every 12 hours, continue with IV antibiotic, continue with oxygen support, continue nebulized treatment, monitor the patient very closely, portable chest x-ray showed opacification of the right upper lobe due to persistent mass with bilateral pleural effusion. REVIEW OF SYSTEMS: Constitutional: No documented fever, no chills, no night sweats. No weight change. No weakness, fatigue or lethargy. No daytime sleepiness. HEENT: No headache. No blurred vision or double vision, no loss of vision. No loss of Hearing, no ringing in the ears, no dizziness. No nasal drainage or congestion. No epistaxis. No sore throat. Lungs: positive for shortness of breath, no cough, minimal sputum production. No wheezing. Reports dyspnea with activity. Cardiovascular: No chest pain, no lower extremity edema. No palpitations. No paroxysmal nocturnal dyspnea. No orthopnea. No lightheadedness or dizziness. No syncopal episodes. Abdominal: Reports abdominal pain. No nausea, vomiting. No diarrhea. No constipation. No bloody or tarry stools reports loss of appetite. Genitourinary: No dysuria, increased frequency, urgency. No urinary retention. Musculoskeletal: No myalgias. No muscle weakness, no gait dysfunction, no frequent falls. No back pain. No neck pain. Integumentary: No wounds, no lesions. No rash or pruritus. No unusual bruising. No change in hair or nails. Neurologic: No aphasia. No facial droop. No change in mentation. No head injury. No headache. No paralysis. No paresthesia. Psychiatric: No depression. No anxiety. No mood swings. Endocrine: No abnormal blood sugars. No weight change. PHYSICAL EXAMINATION: General: 77-year-old female laying down in bed in no current distress. HEENT: Head is atraumatic, normocephalic, pupils were equal round reactive to light and recommendation, extraocular muscle movement were intact, sclera nonicteric, conjunctivae were pale, mucous membranes of the mouth are somewhat dry. Neck: Supple, no JVP, normal carotid upstroke bilaterally, no lymphadenopathy. Chest: Decreased breath sounds at the bases, few rhonchi, no expiratory wheezes, no chest wall tenderness, no intercostal retractions. Heart: First heart sound is normal, second heart sounds normal. There is systolic ejection murmur 2/6 located in the left sternal border. Abdomen: Soft, nontender, nondistended, positive bowel sounds. Extremities: There is no edema no calf tenderness DP +2 bilaterally. Neurologic examination: Patient is awake alert and oriented x3 cranial nerves II-12 appear grossly intact, muscle power were 5 out of 5 in upper extremities and 5 out of 5 in bilateral lower extremities, deep tendon reflexes normal bilaterally. ASSESSMENT AND PLAN: 1. Right main bronchus mass extending to the right upper lobe suggestive of malignancy status post bronchoscopy with thrush from her biopsy and BAL. Continue oxygen support, continue DuoNeb, continue Symbicort, start the patient on Tylenol 650 mg orally every 6 hours as needed Motrin 6 her milligrams every 6 hours as needed, portable chest will be obtained. 2. acute hypoxemic respiratory failure due to COPD as well as right upper lobe investigation due to malignancy. Continue with DuoNeb 3 mL nebulization of 4 times every day, Symbicort 160/4.5 g 2 puff inhalation twice every day, add Lasix 40 mg IV push every 12 hours, versus surgery. 3. Chronic tobacco use and dependence. Smoking cessation and counseling an increased risk of CAD, CVA and malignancy per 4. Bilateral pleural effusion. likely related to a chronic diastolic heart failure. Patient does appear to have a moderate mitral regurgitation and aortic regurgitation add Lasix 40 mg every 12 hours, monitor the patient's symptoms very closely. 5. Hypothyroidism. Continue patient on levothyroxine 88 g once every day. 6. Mixed hyperlipidemia. Continue atorvastatin 40 mg daily. 7. Osteoporosis. Currently on calcium 1200 mg every day, vitamin D 3 2000 units once every day, and Prolia 60 mg subcutaneous once every 6 month bone density scans up-to-date. 8. DVT prophylais. Lovenox 40 mg Sc daily. 9. GI prophylaxis. Protonix 40 mg once every day. 10. Guarded prognosis 11. Home when stable. Objective - Vital Signs Vital signs: Vital Signs Temp 97.9 F 12/26/22 07:40 Pulse 74 12/26/22 08:51 Resp 16 12/26/22 07:40 BP 156/80 12/26/22 07:40 Pulse Ox 96 12/26/22 07:40 FiO2 Intake & Output 12/25/22 12/26/22 12/26/22 18:59 06:59 18:59 Intake Total 300 Balance 300 Weight 55.6 kg Intake: IV 300 Other: # Voids 4 2 - Labs CBC & Chem 7: 12/25/22 06:13 12/25/22 06:13
[2022-12-26] MEDS: methylPREDNISolone SOD SUCCI 40 MG/ML 1 ML VIAL IV SCH (17:05)
[2022-12-26] MEDS: POTASSIUM CHLORIDE ER 20 MEQ TAB.ER PO SCH (22:07)
[2022-12-27] MEDS: methylPREDNISolone SOD SUCCI 40 MG/ML 1 ML VIAL IV SCH (01:07)
[2022-12-27] MEDS: PANTOPRAZOLE 40 MG TABLET PO SCH (06:26)
[2022-12-27] MEDS: LEVOTHYROXINE 75 MCG TAB PO SCH (06:26)
[2022-12-27 08:03] VITALS: BP 144/70; RESP 18; TEMP 98.4
[2022-12-27] MEDS: CHOLECALCIFEROL 25 MCG (1000 IU) TABLET PO SCH (08:10)
[2022-12-27] MEDS: ATORVASTATIN 40 MG TAB PO SCH (08:10)
[2022-12-27] MEDS: POTASSIUM CHLORIDE ER 20 MEQ TAB.ER PO SCH (08:11)
[2022-12-27] MEDS: NICOTINE 14MG/24HR PATCH TRANSDERM SCH (08:12)
[2022-12-27] MEDS: IPRATROPIUM-ALBUTEROL 3 ML NEB INHALATION SCH ×2 (08:22→11:32)
[2022-12-27] MEDS: SYMBICORT 160-4.5 MCG INHALER INHALATION SCH (08:22)
[2022-12-27] MEDS: FUROSEMIDE 10 MG/ML 4 ML VIAL IV SCH (08:59)
[2022-12-27] MEDS: CALCIUM CARBONATE 500 MG CHEWABLE PO SCH (08:59)
[2022-12-27] MEDS ORDERED: predniSONE 20 MG TAB PO SCH (09:00)
[2022-12-27 09:17] LABS: Magnesium 2.2 mg/dL (1.5-2.4)
[2022-12-27 09:24] LABS: African American GFR (CKD) 101.9 (60.0-200.0); Albumin 3.9 g/dL (3.8-4.9); Albumin/Globulin Ratio 1.34 (1.60-3.17); Anion Gap 11.2 mmol/L (10.00-18.00); Blood Urea Nitrogen 7.2 mg/dL (9.0-27.0); Calcium 8.4 mg/dL (8.7-10.3); Carbon Dioxide 23.8 mmol/L (20.0-27.5); Globulin 2.9 g/dL (1.6-3.3); Non-African American GFR(CKD) 87.9 (60.0-200.0); Potassium 4.4 mmol/L (3.5-5.5); Total Bilirubin 0.2 mg/dL (0.30-1.20); Total Protein 6.8 g/dL (6.2-8.2)
--- NOTE | 2022-12-27 10:16 | P.PN ---
Subjective Progress Note Date: 12/27/22 This a very pleasant 77-year-old female patient with a known history of hypothyroidism, hyperlipidemia, chronic and ongoing tobacco dependence of greater than 50 years. He presented to the emergency room yesterday with a two- week history of increasing shortness breath, cough and congestion. She was seen by her PCP yesterday who referred her to the emergency room for further evaluation. She has been having some chest discomfort that radiates on her right side of her neck and up the back of her head. Chest x-ray revealed evidence of COPD with interval development of extensive medial right upper lobe opacity, possible right upper lobe collapse or pneumonia. A central obstructing mass should be excluded. Additional new moderate right and small left pleural effusions with adjacent atelectasis and/or consolidation. CT angiogram ruled out pulmonary embolism. There is a right upper lobe bronchus opacification of the airway resulting in collapse of the right upper lobe. Findings suspicious f or mucus trapping versus malignancy. Of note the patient did have a low-dose computed tomography scan in July 2022 that did not reveal any evidence of neoplasm. White count 7.0. Hemoglobin 0.4. Platelets 372. D-dimer 3.86. Sodium 133. Potassium 4.4. Bicarb 23. BUN 4. Creatinine 0.6. Glucose 86. She is seen today in consultation on the regular medical floor. She is currently sitting up in bed. Awake and alert in no acute distress. Maintaining good O2 saturations in the mid 90s on room air. She's been afebrile. Hemodynamically stable. She does have a loose productive cough of clear phlegm. The patient is seen today's 12/26/2022 in follow-up on the regular medical floor. She is awake and alert in no acute distress. Sitting up in bed. Maintaining O2 saturations in the 90s on room air. Afebrile. Hemodynamically stable. Plan is for bronchoscopy with BAL and possible biopsies today. Pro- calcitonin was normal at 0.04. Zosyn will be discontinued. She is continued on DuoNeb inhalations, Symbicort. NicoDerm patches in place. The patient is seen today 12/27/2022 in follow-up on the regular medical floor. She is resting comfortably in bed. Awake and alert in no acute distress. Maintaining good O2 saturations in the 90s on room air. She is continued on DuoNeb inhalations, Symbicort, prednisone taper. NicoDerm patch in place. Remains on IV diuretics. Sodium 1:30. Potassium 4.4. BUN 7. Creatinine 0.6. Glucose 128. She did undergo bronchoscopy with biopsies yesterday. Suspect malignancy. Pathology pending. Chest x-ray revealed cardiomegaly with small to moderate right greater than left pleural effusions. Bibasilar opacity favoring atelectasis. Objective - Vital Signs Vital signs: Vital Signs Temp 98.4 F 12/27/22 07:13 Pulse 76 12/27/22 08:35 Resp 18 12/27/22 07:13 BP 144/70 12/27/22 07:13 Pulse Ox 90 L 12/27/22 08:25 FiO2 Intake & Output 12/26/22 12/27/22 12/27/22 18:59 06:59 18:59 Intake Total 780 750 Balance 780 750 Weight 54.5 kg Intake: IV 300 Oral 480 750 Other: Voiding Method Toilet # Voids 2 1 # Bowel Movements 1 - Exam GENERAL EXAM: Alert, oriented 77-year-old female, comfortable in no apparent distress. HEAD: Normocephalic. EYES: Normal reaction of pupils, equal size. NOSE: Clear with pink turbinates. THROAT: No erythema or exudates. NECK: No masses, no JVD. CHEST: No chest wall deformity. LUNGS: Equal air entry with scattered rhonchi throughout the right lung, few crackles in the bilateral bases, diminished. CVS: S1 and S2 normal with no audible murmur, regular rhythm. ABDOMEN: No hepatosplenomegaly, normal bowel sounds, no guarding or rigidity. SPINE: No scoliosis or deformity SKIN: No rashes CENTRAL NERVOUS SYSTEM: No focal deficits, tone is normal in all 4 extremities. EXTREMITIES: There is no peripheral edema. No clubbing, no cyanosis. Peripheral pulses are intact. - Labs CBC & Chem 7: 12/25/22 06:13 12/27/22 04:54 Labs: Abnormal Lab Results - Last 24 Hours (Table) 12/27/22 Range/Units 04:54 Sodium 130 L (135-145) mmol/L Chloride 95 L (96-109) mmol/L BUN 7.2 L (9.0-27.0) mg/dL Glucose 128 H (70-110) mg/dL Calcium 8.4 L (8.7-10.3) mg/dL Total Bilirubin 0.20 L (0.30-1.20) mg/dL Albumin/Globulin Ratio 1.34 L (1.60-3.17) g/dL Assessment and Plan Assessment: Dyspnea with cough and congestion secondary to right upper lobe collapse with seen right upper lobe bronchus opacification the airway. She did undergo bronchoscopy with biopsies on 12/26/2022. Findings suspicious for malignancy. Bilateral pleural effusions with some pulmonary vascular congestion. Echocardiogram recently revealed preserved left ventricular size and systolic function. Small effusion. Moderate mitral regurgitation, moderate aortic regurgitation, moderate tricuspid regurgitation. Chronic and ongoing tobacco dependence of greater than 50 years Hypothyroidism Hyperlipidemia Plan: The patient was seen and evaluated Labs and medications reviewed Currently stable and on room air Continue Symbicort, albuterol HFA, prednisone taper Educated regarding the importance of complete smoking cessation Cleared for discharge from the pulmonary standpoint Follow up with Dr. Salazar in 1 week I have personally seen and examined the patient, performed the documentation and the assessment and plan as written. Number of minutes spent on the visit: 10.
--- NOTE | 2022-12-27 10:34 | P.DS ---
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, history of mitral regurgitation and aortic regurgitation, history of acidosis currently on protein, patient presented to the office yesterday with increased shortness of breath with exertion associated with minimal coughing of phlegm production, no hemoptysis no pleurisy, patient oxygenation dropped 91% with exertion, she stated that she has not been able to keep her breath, she has been not feeling well over the last week or so, she was directed to the emergency department for evaluation she underwent computed tomography scan of the chest that was negative for pulmonary was however it did show evidence of right upper lobe bronchus mucous plug versus a mass in the right upper lobe, also there was evidence of moderate right effusion left or effusion with left upper lobe atelectasis, and right middle lobe up or shift, these are all new finding since her last computed tomography scan that was done in July 2022. patient was admitted to the hospital for evaluation for him at [facility], consultation was obtained from patient was started on DuoNeb 3 mg nebulization 4 times every day as well as Symbicort 160/4.5 g 2 puffs inhalation twice every day, she has not been requiring oxygen at this point in time, patient's family were updated about her current condition 12/26: Patient is sitting up in bed appears to be admitted more short of breath today, she is currently 95% and a visit cannula, she underwent bronchoscopy which showed a large right main stem bronchial mass extending into the right upper bronchus suggestive of malignancy biopsies were obtained and BAL was done, patient is complaining of some pain after the bronchoscopy as well as more shortness breath, final result still await the final result of the pathology which may take up to 4 days, I will start the patient on Lasix 40 mg IV push every 12 hours, continue with IV antibiotic, continue with oxygen support, continue nebulized treatment, monitor the patient very closely, portable chest x-ray showed opacification of the right upper lobe due to persistent mass with bilateral pleural effusion. Discharge diagnoses: 1. Right main bronchus mass extending to the right upper lobe suggestive of malignancy status post bronchoscopy with thrush from her biopsy and BAL. 2. acute hypoxemic respiratory failure due to COPD as well as right upper lobe investigation due to malignancy. 3. Chronic tobacco use and dependence. 4. Bilateral pleural effusion. 5. Hypothyroidism. 6. Mixed hyperlipidemia. 7. Osteoporosis. 8. Chronic diastolic heart failure Patient Condition at Discharge: Serious Plan - Discharge Summary Discharge Rx Participant: No New Discharge Prescriptions: No Action Calcium Carbonate [Calcium] 600 mg PO DAILY Atorvastatin [Lipitor] 40 mg PO DAILY Levothyroxine Sodium [Synthroid] 75 mcg PO DAILY Cholecalciferol (Vitamin D3) [Vitamin D3 (3000 Iu)] 75 mcg PO DAILY Discharge Medication List Calcium Carbonate [Calcium] 600 mg PO DAILY 07/13/19 [History] Atorvastatin [Lipitor] 40 mg PO DAILY 12/24/22 [History] Cholecalciferol (Vitamin D3) [Vitamin D3 (3000 Iu)] 75 mcg PO DAILY 12/24/22 [History] Levothyroxine Sodium [Synthroid] 75 mcg PO DAILY 12/24/22 [History] Follow up Appointment(s)/Referral(s): Nan James MD [Primary Care Provider] - 1-2 days Aram Salazar DO [Doctor of Osteopathic Medicine] - 2 Weeks Patient Instructions/Handouts: *Surgery [facility] - Bronchoscopy Discharge Instructions, How to Stop Smoking (ED)
[2022-12-27 11:28] LABS: Basophils # (A) 0.01 X 10*3/uL (0.00-0.10); Basophils % (A) 0.1 %; Eosinophils # (A) 0 X 10*3/uL (0.04-0.35); Eosinophils % (A) 0 %; HCT 33.6 % (37.2-46.3); HGB 10.9 g/dL (12.0-15.0); Immature Grans, Automated 0.6 %; Lymphocytes # (A) 0.36 X 10*3/uL (0.90-5.00); Lymphocytes % (A) 4.4 %; MCH 31.4 pg (27.0-32.0); MCHC 32.4 g/dL (32.0-37.0); MCV 96.8 fL (80.0-97.0); Mean Platelet Volume 9.1 fL (9.5-12.2); Monocytes # (A) 0.09 X 10*3/uL (0.20-1.00); Monocytes % (A) 1.1 %; NRBC Per 100 WBC 0 /100 WBCS (0.0-0.0); Neutrophils # (A) 7.74 X 10*3/uL (1.80-7.70); Neutrophils % (A) 93.8 %; Platelet Count 364 X 10*3/uL (140-440); RBC 3.47 X 10*6/uL (4.10-5.20); RDW 15.7 % (11.5-14.5); WBC 8.25 X 10*3/uL (4.50-10.00)
[2022-12-27 11:49] VITALS: PULSE 80
[2022-12-28] MEDS ORDERED: FUROSEMIDE 40 MG TAB PO SCH (09:00)
[2022-12-28] MEDS ORDERED: POTASSIUM CHLORIDE ER 20 MEQ TAB.ER PO SCH (09:00)
[2022-12-29 16:24] LABS: Appearance,BF Bloody
== END 2022-12-27 11:56 | disposition home or self-care (01) | DRG 180 ==
LOC: EC 12:46 → 4SSUR 16:09
PROVIDERS: ADMIT Internal Medicine; ATTEND Internal Medicine
PROC: 0BB38ZX Excision of Right Main Bronchus, Via Natural or Artificial Opening Endoscopic, Diagnostic (ICD-10-PCS; principal; 2022-12-24)
PROC: 0B9K8ZX Drainage of Right Lung, Via Natural or Artificial Opening Endoscopic, Diagnostic (ICD-10-PCS; principal; 2022-12-24)
PROC: 0BD38ZX Extraction of Right Main Bronchus, Via Natural or Artificial Opening Endoscopic, Diagnostic (ICD-10-PCS; principal; 2022-12-24)
PROC: 0BD58ZX Extraction of Right Middle Lobe Bronchus, Via Natural or Artificial Opening Endoscopic, Diagnostic (ICD-10-PCS; principal; 2022-12-24)
PROC: 0BD28ZX Extraction of Carina, Via Natural or Artificial Opening Endoscopic, Diagnostic (ICD-10-PCS; principal; 2022-12-24)
PROC: 0BD48ZX Extraction of Right Upper Lobe Bronchus, Via Natural or Artificial Opening Endoscopic, Diagnostic (ICD-10-PCS; principal; 2022-12-24)
DX: C34.01 Malignant neoplasm of right main bronchus (principal); J96.01 Acute respiratory failure with hypoxia; J98.19 Other pulmonary collapse; C34.11 Malignant neoplasm of upper lobe, right bronchus or lung; I50.32 Chronic diastolic (congestive) heart failure; J98.11 Atelectasis; I08.3 Combined rheumatic disorders of mitral, aortic and tricuspid valves; E78.2 Mixed hyperlipidemia; E03.9 Hypothyroidism, unspecified; J43.9 Emphysema, unspecified; M81.0 Age-related osteoporosis without current pathological fracture; F17.211 Nicotine dependence, cigarettes, in remission; Z71.6 Tobacco abuse counseling; Z79.890 Hormone replacement therapy; Z79.899 Other long term (current) drug therapy
CPT/HCPCS: 31623; 31624; 31625; 36415; 71045; 71046; 71275; 80053; 83605; 83735; 83880; 84145; 84484; 85025; 85379; 85610; 85730; 87070; 87205; 88104; 88108; 88305; 88341; 88342; 89050; 93005; 93306; 94640; 94760; 99285

== ENCOUNTER → 2023-01-12 | Outpatient (CLI) | payer MEDICARE ==
--- NOTE | 2023-01-12 19:19 | MR ---
EXAMINATION TYPE: MR brain wo/w con DATE OF EXAM: 01/12/2023 6:56 PM CLINICAL INDICATION:Female, 77 years old with history of R91.8 OTHER NONSPECIFIC ABNORMAL FINDING OF LUNG F; Lung Cancer, Short of Breath COMPARISON: None TECHNIQUE: Multi planar, multi sequence imaging was performed through the brain including: T1, T2, In version recovery, susceptibility weighted imaging and gradient echo imaging and Diffusion weighted im aging. The patient was then given intravenous contrast and multi planar, T1 fat-saturation images wer e obtained. IV Contrast: 5.5 cc Gadavist FINDINGS: Mild cerebral atrophy with proportional dilation of ventricular system. The b[place]-white junctions, bas al cisterns appear unremarkable. Diffusion-weighted imaging shows no evidence of restricted diffusion to suggest acute/subacute infarct. Intracranial arterial flow voids are maintained. Midline structur es show no abnormality. Scattered foci of high T2 signal intensity are seen within the periventricula r white matter. The susceptibility weighted images do not reveal any evidence for micro-hemorrhage. R ight temporal lobe developmental venous anomaly. There is motion artifact on postcontrast imaging. After administration of gadolinium, no abnormal enh ancement is seen. The bone marrow signal is within normal limits. Paranasal sinuses and mastoid air cells: few opacified left mastoid air cells. Visualized orbits: Orbital contents are intact. IMPRESSION: 1. No evidence of intracranial mass, acute/subacute infarct, or abnormal enhancement. No evidence for metastatic disease. Mild motion limited postcontrast imaging. 2. Nonspecific white matter changes, likely related to small vessel ischemic disease
== END | disposition home or self-care (01) ==
LOC: RADMRIMAIN 17:46
PROVIDERS: ATTEND Internal Medicine
DX: R90.82 White matter disease, unspecified (principal); R91.8 Other nonspecific abnormal finding of lung field
CPT/HCPCS: 70553; A9585

== ENCOUNTER 2023-01-15 15:00 | Emergency (ER) | payer MEDICARE ==
[2023-01-15 15:09] VITALS: TEMP 98.3
--- NOTE | 2023-01-15 15:46 | ED ---
General Adult HPI - General Chief complaint: Recheck/Abnormal Lab/Rx Stated complaint: Fluid on lungs Time Seen by Provider: 01/15/23 15:02 Source: patient, RN notes reviewed, old records reviewed Mode of arrival: wheelchair Limitations: no limitations - History of Present Illness Initial comments: 37-year-old female presenting from the outpatient setting with need for thoracentesis secondary to pleural effusion. Patient does complain of dyspnea she has recent diagnosis of cancer which she is scheduled for chemotherapy. - Related Data Home Medications Medication Instructions Recorded Confirmed Calcium Carbonate [Calcium] 600 mg PO DAILY 07/13/19 01/15/23 Atorvastatin [Lipitor] 40 mg PO DAILY 12/24/22 01/15/23 Cholecalciferol (Vitamin D3) 75 mcg PO DAILY 12/24/22 01/15/23 [Vitamin D3 (3000 Iu)] Levothyroxine Sodium [Synthroid] 75 mcg PO DAILY 12/24/22 01/15/23 Previous Rx's Medication Instructions Recorded Budesonide-Formot 160-4.5 Mcg 2 puff INHALATION RT-BID #120 each 12/27/22 [Symbicort 160-4.5 Mcg Inhaler] Furosemide [Lasix] 40 mg PO DAILY #30 tab 12/27/22 Pantoprazole [Protonix] 40 mg PO AC-BRKFST #30 tab 12/27/22 Potassium Chloride ER [K-Dur 20] 20 meq PO DAILY #30 tab 12/27/22 Allergies Allergy/AdvReac Type Severity Reaction Status Date / Time No Known Allergies Allergy Verified 01/15/23 15:52 Review of Systems ROS Statement: Those systems with pertinent positive or pertinent negative responses have been documented in the HPI. ROS Other: All systems not noted in ROS Statement are negative. Past Medical History Past Medical History: Thyroid Disorder Additional Past Medical History / Comment(s): Heart Murmur. 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 History of Any Multi-Drug Resistant Organisms: None Reported Past Surgical History: No Surgical Hx Reported Additional Past Surgical History / Comment(s): Colonoscopy. Past Anesthesia/Blood Transfusion Reactions: Family History of Problems w/ Anesthesia, Postoperative Nausea & Vomiting (PONV) Additional Past Anesthesia/Blood Transfusion Reaction / Comment(s): Mom allergic to a lot of anesthetics. Past Psychological History: No Psychological Hx Reported Smoking Status: Current every day smoker Past Alcohol Use History: Rare Past Drug Use History: None Reported - Past Family History Father Family Medical History: Cancer General Exam Limitations: no limitations General appearance: alert, in no apparent distress Head exam: Present: atraumatic, normocephalic Eye exam: Present: normal appearance, PERRL ENT exam: Present: normal exam Neck exam: Present: normal inspection. Absent: tenderness, meningismus Respiratory exam: Present: decreased breath sounds. Absent: respiratory distress, wheezes Cardiovascular Exam: Present: regular rate, normal rhythm GI/Abdominal exam: Present: soft. Absent: distended, tenderness Back exam: Present: normal inspection Neurological exam: Present: alert, oriented X3, CN II-XII intact, normal gait Psychiatric exam: Present: normal affect, normal mood Skin exam: Present: warm, dry Course Vital Signs 01/15/23 01/15/23 01/15/23 15:05 15:19 15:22 Temperature 98.3 F Pulse Rate 75 77 Respiratory 20 18 18 Rate Blood Pressure 154/74 93/81 O2 Sat by Pulse 99 97 Oximetry 01/15/23 16:16 Temperature Pulse Rate 65 Respiratory 16 Rate Blood Pressure 123/65 O2 Sat by Pulse 98 Oximetry Medical Decision Making - Medical Decision Making Was pt. sent in by a medical professional or institution (, PA, TRAILER TRUCK DRIVER, urgent care, hospital, or prison...) When possible be specific @ -[Sent in by pulmonology with ultrasound confirmed pleural effusion Did you speak to anyone other than the patient for history (EMS, parent, family, police, friend...)? What history was obtained from this source @ -No Did you review nursing and triage notes (agree or disagree)? Why? @ -I reviewed and agree with nursing and triage notes Were old charts reviewed (outside hosp., previous admission, EMS record, old EKG, old radiological studies, urgent care reports/EKG's, prison records)? Report findings @ -No old charts were reviewed Differential Diagnosis (chest pain, altered mental status, abdominal pain women, abdominal pain men, vaginal bleeding, weakness, fever, dyspnea, syncope, headache, dizziness, GI bleed, back pain, seizure, CVA, palpatations, mental health, musculoskeletal)? @ Differential Dyspnea: Coronary syndrome, arrhythmia, tamponade, asthma, COPD, pulmonary embolism, pneumonia, pneumothorax, pulmonary effusion, anaphylaxis, diabetic ketoacidosis, flailed chest, pulmonary contusion, diaphragmatic rupture, anemia, neuromuscular, this is not meant to be an all-inclusive list. EKG interpreted by me (3pts min.). @ -As above X-rays interpreted by me (1pt min.). @ Postprocedural single view chest x-ray performed negative for pneumothorax CT interpreted by me (1pt min.). @ -None done U/S interpreted by me (1pt. min.). @ -None done What testing was considered but not performed or refused? (CT, X-rays, U/S, labs)? Why? @ -None What meds were considered but not given or refused? Why? @ -None Did you discuss the management of the patient with other professionals (professionals i.e. , PA, TRAILER TRUCK DRIVER, lab, RT, psych nurse, social work nurse, hardware installer, teacher, air support control officer, community case manager)? Give summary @ Dr. Salazar Was smoking cessation discussed for >3mins.? @ -No Was critical care preformed (if so, how long)? @ -No Were there social determinants of health that impacted care today? How? (Homelessness, low income, unemployed, alcoholism, drug addiction, transportation, low edu. Level, literacy, decrease access to med. care, correction, rehab)? @ -No Was there de-escalation of care discussed even if they declined (Discuss DNR or withdrawal of care, Hospice)? DNR status @ -No What co-morbidities impacted this encounter? (DM, HTN, Smoking, COPD, CAD, Cancer, CVA, ARF, Chemo, Hep., AIDS, mental health diagnosis, sleep apnea, morbid obesity)? @ -Lung CA Was patient admitted / discharged? Hospital course, mention meds given and route, prescriptions, significant lab abnormalities, going to OR and other pertinent info. @ 77-year-old female with recent diagnosis of lung cancer presents with pleural effusion presenting for thoracentesis. This was performed by the sharepoint manager Dr. Salazar in the emergency department. Patient tolerated the procedure well. The post thoracentesis x-ray was negative for pneumothorax. Patient was stable for discharge. Undiagnosed new problem with uncertain prognosis? @ -No Drug Therapy requiring intensive monitoring for toxicity (Heparin, Nitro, Insulin, Cardizem)? @ -No Were any procedures done? @ -No Diagnosis/symptom? @ -default Acute, or Chronic, or Acute on Chronic? @ -Lung cancer, pleural effusion Uncomplicated (without systemic symptoms) or Complicated (systemic symptoms)? @ -Complicated Side effects of treatment? @ -No Exacerbation, Progression, or Severe Exacerbation? @ -No Poses a threat to life or bodily function? How? (Chest pain, [place], [place], pneumonia, PE, COPD, DKA, ARF, appy, cholecystitis, CVA, Diverticulitis, Homicidal, Suicidal, threat to staff... and all critical care pts) @ -No - Lab Data Lab Results 01/15/23 01/15/23 01/15/23 Range/Units 15:30 15:30 15:30 Fluid Source Pleural Fluid Fluid Volume 5 mL Fluid Appearance Cloudy A (Clear) Fluid WBC 1798 X 10*3/uL Fluid RBC (Auto) 5000 X 10*6/uL Fld Polynuclear WBCs % 10 % Fluid Lymphocytes % 82 % Fluid Monocytes % 2 % Fld Mesothelial Cell % 6 % Body Fluid Glucose Source Pleural Fluid Fluid Glucose 97 mg/dL Body Fluid Protein Source Pleural Fluid Fluid Total Protein >3600 mg/dL Body Fluid LDH Source Pleural Fluid Fluid LDH 167 U/L Virus Source See Below Viral Test See Below Virus Analysis Interp See Below Disposition Clinical Impression: Lung mass, Pleural effusion, Status post thoracentesis Disposition: HOME SELF-CARE Condition: Fair Instructions (If sedation given, give patient instructions): Pleural Effusion (DC), Thoracentesis (DC) Is patient prescribed a controlled substance at d/c from ED?: No Referrals: Nan James MD [Primary Care Provider] - 1-2 days Aram Salazar DO [Doctor of Osteopathic Medicine] - 1-2 days Time of Disposition: 15:45
--- NOTE | 2023-01-15 15:53 | XR ---
EXAMINATION TYPE: XR chest 1V portable DATE OF EXAM: 01/15/2023 Comparison: Radiograph 12/26/2022 Clinical History: 77-year-old female s/p thoracentesis Findings: The heart is normal size. As site of lombardo with right upper lobe collapse. Small right pleural effus ion remains after thoracentesis. No appreciable pneumothorax. Impression: 1. S sign of Lombardo. 2. Residual small right pleural effusion after thoracentesis. No appreciable pneumothorax.
[2023-01-15 17:46] VITALS: BP 123/65; PULSE 65; RESP 16
--- NOTE | 2023-01-15 22:03 | PCN ---
PROCEDURE NOTE This is a Pulmonary/Critical Care procedure note. PROCEDURES PERFORMED: Right-sided thoracentesis. PREOPERATIVE DIAGNOSIS: Right pleural effusion. Rule out cancer. POSTOPERATIVE DIAGNOSIS: Right pleural effusion. Rule out cancer. LAUNDRY OPERATOR FINISHING: Dr. Bolden. The patient's procedure took place in the emergency room, Trauma Reva 2. There were informed consent and universal timeout. DESCRIPTION OF PROCEDURE: The posterior chest was marked by ultrasound. 250 mL of yellow-red fluid was removed from the right pleural space. The patient tolerated the procedure well. There was no immediate complication and a chest x-ray will be ordered. The fluid will be sent for analysis. It will include cytology, chemistry, and microbiology. The patient tolerated the procedure well without complication. If the chest x-ray done after the procedure is okay, the patient could be discharged home. MMODL / IJN: [id number] /
[2023-01-16 02:44] LABS: Glucose, BF Source Pleural Fluid; Glucose, Body Fluid 97 mg/dL; LDH, Body Fluid Source Pleural Fluid; T. Protein, Body Fluid Source Pleural Fluid; Total Protein, Body Fluid >3600 mg/dL
[2023-01-16 05:03] LABS: Appearance,BF Cloudy (Clear)
== END 2023-01-15 16:18 | disposition home or self-care (01) ==
LOC: EC 15:00
DX: Z98.890 Other specified postprocedural states (principal); R91.8 Other nonspecific abnormal finding of lung field; J90 Pleural effusion, not elsewhere classified; C34.91 Malignant neoplasm of unspecified part of right bronchus or lung; E07.9 Disorder of thyroid, unspecified; F17.200 Nicotine dependence, unspecified, uncomplicated; Z79.890 Hormone replacement therapy
CPT/HCPCS: 32555; 71045; 82945; 83615; 84157; 87070; 87205; 87252; 87496; 87498; 87502; 87529; 87634; 87798; 88108; 88305; 88341; 88342; 89050; 99283

== ENCOUNTER → 2023-01-15 | Outpatient (CLI) | payer MEDICARE ==
--- NOTE | 2023-01-15 13:36 | US ---
EXAMINATION TYPE: US chest DATE OF EXAM: 01/15/2023 COMPARISON: Cta 12/24/22 CLINICAL INDICATION: Female, 77 years old with history of C34.11 Malignant neoplasm of upper lobe, ri ght bronchus or l; Right pleural effusion. TECHNIQUE: Targeted ultrasound of the posterior lower bilateral hemithoraces, attention right side. EXAM MEASUREMENTS: Right Pleural Effusion pocket size: 11.1 cm Right skin surface to fluid distance: 2.2 cm Left Pleural Effusion pocket size: 0.8 cm Right side marked for possible thoracentesis outside the dept. Left side NOT marked for possible thoracentesis outside the dept. Pulmonologists are able to review the images in the patient?s EMR. IMPRESSIONS: 1. Right pleural effusion
== END | disposition home or self-care (01) ==
LOC: RADUSWWP 12:30
PROVIDERS: ATTEND Radiology Radiation Oncology
DX: C34.11 Malignant neoplasm of upper lobe, right bronchus or lung (principal); J90 Pleural effusion, not elsewhere classified
CPT/HCPCS: 76604

== ENCOUNTER → 2023-01-15 | Outpatient (CLI) | payer MEDICARE ==
--- NOTE | 2023-01-16 07:14 | PE ---
EXAMINATION TYPE: PET CT fusion skull to thigh DATE OF EXAM: 01/15/2023 CLINICAL INDICATION:Female, 77 years old with history of R91.8; TECHNIQUE: Following the intravenous administration of 8.7 mCi of F-18 FDG, whole body images are p erformed from the skull base to the midthigh. Images are reviewed on the computer in the coronal, ax ial, and sagittal planes. Reconstructed rotating images are created on independent workstation and r eviewed on the computer. A non-contrast CT is performed in conjunction with the PET scan. Glucose l evel 100 mg/dL COMPARISON: CT 12/24/2022, PET/CT None, FINDINGS: Mediastinal SUV mean is 1.5. Hepatic parenchyma SUV mean is 1.8. SKULL BASE AND NECK: No suspicious radiotracer activity. CHEST, MEDIASTINUM, AND HILAR REGION: Multiple FDG avid lesions within the upper thorax and lower neck. * Right upper lung mass extends into the chest wall and mediastinum max SUV 16.3. * Left supraclavicular lymph nodes measuring up to 5 mm Max SUV 9.6 and left lower neck paratracheal 8 mm Max SUV 12.2. * Right supraclavicular confluent soft tissue measures at least 4.0 x 2.5 cm max SUV 16.3. * Another right supraclavicular lymph node just under the skin 16.8 measuring 13 mm. Mediastinal lymph nodes are present but are difficult to measure given complex soft tissue. Examples include: * AP window lymph node D 18.2 * Prevascular space lymph node max SUV 13.7 measuring at least 21 mm. * Confluent soft tissue along the right paratracheal space and anterior aspect of the trachea max FUNG V 19.2 * r left axilla lymph node measuring 8 mm Max SUV 7.9 ABDOMEN AND PELVIS: * Right adrenal nodule Max SUV 8.5 measuring 10 mm * Left adrenal nodule Max SUV 4.3 measuring 6 mm. OSSEOUS STRUCTURES: No suspicious radiotracer activity. OTHER CT: Atherosclerosis of the carotid bifurcations. Small to moderate pleural effusion. Mitral jyoti ve annular calcifications. Left chest wall edema. Cholelithiasis. 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 Additional possible sites of disease include bilateral adrenal glands with the right being more suspicious than left and possibly a single left axilla lymph node.
== END | disposition home or self-care (01) ==
LOC: RADPETMAIN 13:13
PROVIDERS: ATTEND Internal Medicine Critical Care Medicine
DX: R91.8 Other nonspecific abnormal finding of lung field (principal)
CPT/HCPCS: 78815; A9552

== ENCOUNTER 2023-01-20 18:01 | Emergency (ER) | payer MEDICARE ==
--- NOTE | 2023-01-20 20:26 | ED ---
Recheck HPI - General Chief Complaint: Recheck/Abnormal Lab/Rx Stated Complaint: blood clot,sent from US Time Seen by Provider: 01/20/23 19:04 Source: patient, RN notes reviewed, old records reviewed Mode of arrival: ambulatory Limitations: no limitations - History of Present Illness Initial Comments: This is a 77-year-old female the ER today. Patient presents us today for evaluation regards to outpatient ultrasound showing thrombosis and right internal jugular vein, patient is sent to the emergency department from outpatient ultrasound for evaluation. Patient has no complaints and presented for family doctor's office for left upper extremity arm swelling facial swelling and had outpatient ultrasound. 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 MD Complaint: other (DVT) Returns Today for: persistent/worsening pain related to initial visit, other (Thrombosis) Symptoms Since Prior Visit: no new symptoms Associated Symptoms: none Treatments Prior to Arrival: other (0) - Related Data Home Medications Medication Instructions Recorded Confirmed Calcium Carbonate [Calcium] 600 mg PO DAILY 07/13/19 01/23/23 Atorvastatin [Lipitor] 40 mg PO DAILY 12/24/22 01/23/23 Cholecalciferol (Vitamin D3) 75 mcg PO DAILY 12/24/22 01/23/23 [Vitamin D3 (3000 Iu)] Albuterol Inhaler [Ventolin Hfa 2 puff INHALATION RT-Q6H PRN 01/20/23 01/23/23 Inhaler] Fluticasone/Umeclidin/Vilanter 1 puff INHALATION RT-DAILY 01/20/23 01/23/23 [Trelegy Ellipta 200-62.5-25] Levothyroxine Sodium [Synthroid] 88 mcg PO DAILY 01/20/23 01/23/23 Apixaban [Eliquis Starter Pack See Taper PO DIRECTED 01/23/23 01/23/23 (for VTE)] Apixaban [Eliquis] 5 mg PO DIRECTED 01/23/23 01/23/23 Previous Rx's Medication Instructions Recorded Budesonide-Formot 160-4.5 Mcg 2 puff INHALATION RT-BID #120 each 12/27/22 [Symbicort 160-4.5 Mcg Inhaler] Furosemide [Lasix] 40 mg PO DAILY #30 tab 12/27/22 Pantoprazole [Protonix] 40 mg PO AC-BRKFST #30 tab 12/27/22 Potassium Chloride ER [K-Dur 20] 20 meq PO DAILY #30 tab 12/27/22 dexAMETHasone ORAL [Hexadrol] 4 mg PO BID #25 tablet 01/26/23 Allergies Allergy/AdvReac Type Severity Reaction Status Date / Time No Known Allergies Allergy Verified 01/23/23 12:30 Review of Systems ROS Statement: Those systems with pertinent positive or pertinent negative responses have been documented in the HPI. ROS Other: All systems not noted in ROS Statement are negative. Past Medical History Past Medical History: Thyroid Disorder Additional Past Medical History / Comment(s): Heart Murmur. 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 current lung cancer. History of Any Multi-Drug Resistant Organisms: None Reported Past Surgical History: No Surgical Hx Reported Additional Past Surgical History / Comment(s): Colonoscopy. Past Anesthesia/Blood Transfusion Reactions: Family History of Problems w/ Anesthesia, Postoperative Nausea & Vomiting (PONV) Additional Past Anesthesia/Blood Transfusion Reaction / Comment(s): Mom allergic to a lot of anesthetics. Past Psychological History: No Psychological Hx Reported Smoking Status: Current every day smoker Past Alcohol Use History: Rare Past Drug Use History: None Reported - Past Family History Father Family Medical History: Cancer General Exam - General Exam Comments Initial Comments: Left arm edema Facial edema Limitations: no limitations General appearance: alert, in no apparent distress Head exam: Present: atraumatic, normocephalic, normal inspection Eye exam: Present: normal appearance, PERRL, EOMI. Absent: scleral icterus, conjunctival injection, periorbital swelling ENT exam: Present: normal exam, mucous membranes moist Neck exam: Present: normal inspection. Absent: tenderness, meningismus, lymphadenopathy Respiratory exam: Present: normal lung sounds bilaterally. Absent: respiratory distress, wheezes, rales, rhonchi, stridor Cardiovascular Exam: Present: regular rate, normal rhythm, normal heart sounds. Absent: systolic murmur, diastolic murmur, rubs, gallop, clicks GI/Abdominal exam: Present: soft, normal bowel sounds. Absent: distended, tenderness, guarding, rebound, rigid Extremities exam: Present: normal inspection, full ROM, normal capillary refill. Absent: tenderness, pedal edema, joint swelling, calf tenderness Back exam: Present: normal inspection Neurological exam: Present: alert, oriented X3, CN II-XII intact Psychiatric exam: Present: normal affect, normal mood Skin exam: Present: warm, dry, intact, normal color. Absent: rash Course Vital Signs 01/20/23 01/20/23 01/20/23 18:26 19:39 21:00 Temperature 97.9 F 97.9 F 98.5 F Pulse Rate 75 75 78 Respiratory 18 20 17 Rate Blood Pressure 160/79 140/73 137/69 O2 Sat by Pulse 98 96 97 Oximetry - Reevaluation(s) Reevaluation #1: 01/20/23 22:40 Medical records reviewed Reevaluation #2: 01/20/23 22:40 Patient informed results questions answered Reevaluation #3: 01/20/23 22:40 No symptoms Reevaluation #4: 01/20/23 22:40 Was pt. sent in by a medical professional or institution? @ -no Did you speak to anyone other than the patient for history? @ -no Did you review nursing and triage notes? @ -agree Were old charts reviewed? @ -no Differential Diagnosis? @ -prior EKG interpreted by me (3pts min.)? @ -no X-rays interpreted by me (1pt min.)? @ -no CT interpreted by me (1pt min.)? @ -no U/S interpreted by me (1pt. min.)? @ -yes What testing was considered but not performed? (CT, X-rays, U/S, labs)? Why? @ -no What meds were considered but not given? Why? @ -no Did you discuss the management of the patient with other professionals? @ -no Did you reconcile home meds? @ -no Was smoking cessation discussed for >3mins.? @ -no Was critical care preformed (if so, how long)? @ -no Were there social determinants of health that impacted care today? How? (Homelessness, low income, unemployed, alcoholism, drug addiction, transportation, low edu. Level, literacy, decrease access to med. care, correction, rehab)? @ -no Was there de-escalation of care discussed even if they declined? (Discuss DNR or withdrawal of care, Hospice)? @ -no What co-morbidities impacted this encounter? (DM, HTN, Smoking, COPD, CAD, Cancer, CVA, Hep., AIDS, mental health diagnosis, sleep apnea, morbid obesity)? @ -none Was patient admitted / discharged? 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 Patient has right IJ thrombosis secondary to above condition. Patient placed on anticoagulation will follow-up as an outpatient with Dr. Bai on Wednesday, patient is refusing hospital admission Discharge Undiagnosed new problem with uncertain prognosis? @ -no Drug Therapy requiring intensive monitoring for toxicity (Heparin, Nitro, Insulin, Cardizem)? @ -no Were any procedures done? @ -no Diagnosis/symptom? @ -SVC syndrome, right IJ thrombosis Acute, or Chronic, or Acute on Chronic? @ -no Uncomplicated (without systemic symptoms) or Complicated (systemic symptoms)? @ -uncomplicated Side effects of treatment? @ -no Exacerbation, Progression, or Severe Exacerbation] @ -no Poses a threat to life or bodily function? @ -Yes cancer resulting in SVC syndrome can be fatal - Consultations Consultation #1: Spoke with patient's pulmonology team, patient is okay for discharge follow-up with Dr. Bai for SVC Medical Decision Making - Medical Decision Making 77 female to the emergency department for evaluation known SVC syndrome. Patient has right IJ thrombosis secondary to above condition. Patient placed on anticoagulation will follow-up as an outpatient with Dr. Bai on Wednesday, patient is refusing hospital admission - EKG Data -: EKG Interpreted by Me (EKG is sinus 72 WV 141 QRS 85 QTC 401) - Radiology Data Radiology results: report reviewed (Ultrasound shows positive right IJ thrombosis), image reviewed Disposition Clinical Impression: Lung mass, Jugular vein thrombosis, right Disposition: HOME SELF-CARE Condition: Fair Instructions (If sedation given, give patient instructions): Deep Vein Thrombosis (ED) Is patient prescribed a controlled substance at d/c from ED?: No Referrals: Nan James MD [Primary Care Provider] - 1-2 days Time of Disposition: 21:30
[2023-01-20 21:01] VITALS: BP 137/69; PULSE 78; RESP 17; TEMP 98.5
[2023-01-20] MEDS ORDERED: APIXABAN 5 MG TAB PO STA (21:31)
[2023-01-20] MEDS ORDERED: ENOXAPARIN 60 MG/0.6 ML SYRINGE SQ ONE (21:45)
== END 2023-01-20 21:56 | disposition home or self-care (01) ==
LOC: EC 18:01
DX: I82.C11 Acute embolism and thrombosis of right internal jugular vein (principal); R91.8 Other nonspecific abnormal finding of lung field; E07.9 Disorder of thyroid, unspecified; F17.200 Nicotine dependence, unspecified, uncomplicated; Z79.01 Long term (current) use of anticoagulants; Z79.890 Hormone replacement therapy; Z79.899 Other long term (current) drug therapy
CPT/HCPCS: 93005; 99283; 96372; J1650

== ENCOUNTER → 2023-01-20 | Outpatient (CLI) | payer MEDICARE ==
--- NOTE | 2023-01-20 18:51 | US ---
EXAMINATION TYPE: US venous doppler duplex UE LT DATE OF EXAM: 01/20/2023 COMPARISON: NONE CLINICAL INDICATION: Female, 77 years old with history of M79.622 PAIN IN LEFT UPPER ARM, R22.32 LOCA LIZED SWELLING OF; swelling in left arm. Pt states she had an IV in last Wednesday for a PET scan. No hx of DVT. On baby aspirin SIDE PERFORMED: Left Right Arm: There is echoes seen in the IJV with minimal flow, and no compressibility. Left Arm: No evidence for DVT. Rouleaux flow seen lateral subclavian vein, but compressible. IMPRESSION: Right internal jugular vein thrombosis No evidence for deep vein to most of the left upper summary. Findings communicated to Dr. Ramirez Mercado MD on 01/20/2023 5:[address] Aram Webster. Patient wa s directed to the ER.
== END ==
LOC: RADUSWWP 16:58
PROVIDERS: ATTEND Internal Medicine
DX: C34.81 Malignant neoplasm of overlapping sites of right bronchus and lung (principal); I82.C11 Acute embolism and thrombosis of right internal jugular vein; R22.32 Localized swelling, mass and lump, left upper limb; M79.622 Pain in left upper arm

== ENCOUNTER 2023-01-23 11:53 | Inpatient (IN) | payer MEDICARE ==
--- NOTE | 2023-01-23 12:18 | ED ---
General Adult HPI - General Chief complaint: Shortness of Breath Stated complaint: Left hand swelling, SOB Time Seen by Provider: 01/23/23 12:11 Source: patient, family Mode of arrival: ambulatory - History of Present Illness Initial comments: Patient presents to the ED with her daughter for evaluation. Patient states that she has known lung cancer, and she developed facial swelling about a week ago. Patient also developed left arm swelling 3 days ago, and she was diagnosed with a right IJ vein thrombosis in the ED 3 days ago. Patient was started on Eliquis at that time, which she states she has been taking as prescribed. Patient states that her left arm is swelling continues to progress, and she states that she has developed a progressing dyspnea as well. Patient states that her physicians are concerned that she may be developing SVC syndrome. Patient states that she saw her radiation oncologist (Dr. Bai) yesterday, and she was prescribed a course of steroids for treatment of her dyspnea and left arm swelling, but she states that she was unable to pick it up due to an issue with the pharmacy. Patient denies having any pain, fever or chills, headache, focal numbness/weakness/neuro deficit, chest pain or pressure, cough or cold symptoms, palpitations, dizziness, nausea/vomiting/diaphoresis, diarrhea, bloody or melanotic stool, dysuria/hematuria/urinary frequency/urinary symptoms, decreased urine output, leg or calf swelling or pain, or any other s ymptoms or complaints. Patient states that she has not yet started radiation treatments or chemotherapy. - Related Data Home Medications Medication Instructions Recorded Confirmed Calcium Carbonate [Calcium] 600 mg PO DAILY 07/13/19 01/23/23 Atorvastatin [Lipitor] 40 mg PO DAILY 12/24/22 01/23/23 Cholecalciferol (Vitamin D3) 75 mcg PO DAILY 12/24/22 01/23/23 [Vitamin D3 (3000 Iu)] Albuterol Inhaler [Ventolin Hfa 2 puff INHALATION RT-Q6H PRN 01/20/23 01/23/23 Inhaler] Fluticasone/Umeclidin/Vilanter 1 puff INHALATION RT-DAILY 01/20/23 01/23/23 [Trelegy Ellipta 200-62.5-25] Levothyroxine Sodium [Synthroid] 88 mcg PO DAILY 01/20/23 01/23/23 Apixaban [Eliquis Starter Pack See Taper PO DIRECTED 01/23/23 01/23/23 (for VTE)] Apixaban [Eliquis] 5 mg PO DIRECTED 01/23/23 01/23/23 Previous Rx's Medication Instructions Recorded Budesonide-Formot 160-4.5 Mcg 2 puff INHALATION RT-BID #120 each 12/27/22 [Symbicort 160-4.5 Mcg Inhaler] Furosemide [Lasix] 40 mg PO DAILY #30 tab 12/27/22 Pantoprazole [Protonix] 40 mg PO AC-BRKFST #30 tab 12/27/22 Potassium Chloride ER [K-Dur 20] 20 meq PO DAILY #30 tab 12/27/22 Allergies Allergy/AdvReac Type Severity Reaction Status Date / Time No Known Allergies Allergy Verified 01/23/23 12:30 Review of Systems ROS Statement: Those systems with pertinent positive or pertinent negative responses have been documented in the HPI. ROS Other: All systems not noted in ROS Statement are negative. Past Medical History Past Medical History: Thyroid Disorder Additional Past Medical History / Comment(s): Heart Murmur. 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 current lung cancer. History of Any Multi-Drug Resistant Organisms: None Reported Past Surgical History: No Surgical Hx Reported Additional Past Surgical History / Comment(s): Colonoscopy. Past Anesthesia/Blood Transfusion Reactions: Family History of Problems w/ Anesthesia, Postoperative Nausea & Vomiting (PONV) Additional Past Anesthesia/Blood Transfusion Reaction / Comment(s): Mom allergic to a lot of anesthetics. Past Psychological History: No Psychological Hx Reported Smoking Status: Current every day smoker Past Alcohol Use History: Rare Past Drug Use History: None Reported - Past Family History Father Family Medical History: Cancer General Exam Limitations: no limitations General appearance: alert, in no apparent distress Head exam: Present: atraumatic Eye exam: Present: normal appearance, PERRL, EOMI ENT exam: Present: normal oropharynx, mucous membranes moist Neck exam: Present: other (Trachea is in midline) Respiratory exam: Present: normal lung sounds bilaterally, other (Venous distention is noted to the veins along the patient's upper chest). Absent: respiratory distress, wheezes, rales, rhonchi, stridor Cardiovascular Exam: Present: regular rate, normal rhythm, normal heart sounds, other (Normal radial pulses bilaterally) GI/Abdominal exam: Present: soft. Absent: distended, tenderness, guarding Extremities exam: Present: other (Negative Homans sign bilaterally; 2+ pitting edema is noted to the patient's left upper extremity; no left upper extremity tenderness). Absent: tenderness, pedal edema, calf tenderness Neurological exam: Present: alert, oriented X3. Absent: motor sensory deficit Psychiatric exam: Present: normal affect, normal mood Skin exam: Present: warm, dry, intact, normal color Course Vital Signs 01/23/23 01/23/23 11:54 14:52 Temperature 98.1 F Pulse Rate 84 89 Respiratory 16 18 Rate Blood Pressure 169/75 147/70 O2 Sat by Pulse 95 95 Oximetry - Reevaluation(s) Reevaluation #1: 01/23/23 15:14 Patient remains alert and breathing comfortably with a normal room air oxygen saturation. Patient and daughter are aware the patient's test results, and they both agree with hospital admission at this time. 01/23/23 15:50 Case, H&P and test results were discussed with Dr. James. He accepts hospital admission. He agrees with oncology, radiation oncology and pulmonology consultations. He has no further recommendations at this time. EKG Findings - EKG Comments: EKG Findings:: ED physician interpretation (interpreted by me): Normal sinus rhythm, no ectopy, ventricular rate of 80 bpm, normal NV and QRS intervals, normal QT interval, normal axis, no ST or T-wave abnormality Medical Decision Making - Medical Decision Making Was pt. sent in by a medical professional or institution (, PA, COMMISSARY WORKER, urgent care, hospital, or [facility]...) When possible be specific @ -No Did you speak to anyone other than the patient for history (EMS, parent, family, police, friend...)? What history was obtained from this source @ -History was also provided by the patient's daughter. Did you review nursing and triage notes (agree or disagree)? Why? @ -I reviewed and agree with nursing and triage notes Were old charts reviewed (outside hosp., previous admission, EMS record, old EKG, old radiological studies, urgent care reports/EKG's, [facility] records)? Report findings @ -No old charts were reviewed Differential Diagnosis (chest pain, altered mental status, abdominal pain women, abdominal pain men, vaginal bleeding, weakness, fever, dyspnea, syncope, headache, dizziness, GI bleed, back pain, seizure, CVA, palpatations, mental health, musculoskeletal)? @ -Dyspnea, arm swelling, DVT, thrombosis, edema, CHF, renal insufficiency, liver disease, pleural effusion, COPD, asthma, CHF, ACS/ND, dysrhythmia, anemia, anxiety, PE, lung cancer, metastatic disease, SVC syndrome EKG interpreted by me (3pts min.). @ -As above X-rays interpreted by me (1pt min.). @ -None done CT interpreted by me (1pt min.). @ -CT angiography chest with IV contrast was reviewed myself and shows no evidence of pulmonary embolism, but does demonstrate a large right pleural effusion. I agree with the radiologist's interpretation as above. U/S interpreted by me (1pt. min.). @ -None done What testing was considered but not performed or refused? (CT, X-rays, U/S, labs)? Why? @ -None What meds were considered but not given or refused? Why? @ -None Did you discuss the management of the patient with other professionals (professionals i.e. , PA, COMMISSARY WORKER, lab, RT, psych nurse, social science professor, brand designer, teacher, airfield engineer officer, watch caser)? Give summary @ -As above Was smoking cessation discussed for >3mins.? @ -No Was critical care preformed (if so, how long)? @ -No Were there social determinants of health that impacted care today? How? (Homelessness, low income, unemployed, alcoholism, drug addiction, transportation, low edu. Level, literacy, decrease access to med. care, custodial, rehab)? @ -No Was there de-escalation of care discussed even if they declined (Discuss DNR or withdrawal of care, Hospice)? DNR status @ -No What co-morbidities impacted this encounter? (DM, HTN, Smoking, COPD, CAD, Cancer, CVA, ARF, Chemo, Hep., AIDS, mental health diagnosis, sleep apnea, morbid obesity)? @ -Lung cancer Was patient admitted / discharged? Hospital course, mention meds given and route, prescriptions, significant lab abnormalities, going to OR and other pertinent info. @ -Patient has been alert and breathing comfortably while in the ED. Patient's troponin is negative. Patient's CT angiography chest is negative for pulmonary embolism, but does demonstrate a large right pleural effusion and findings consistent with SVC syndrome. I suspect that the patient's dyspnea is likely due to her pleural effusion. Will admit the patient to the hospital for management of her pleural effusion and SVC syndrome. Dr. James has accepted hospital admission. Consultation orders for oncology, radiation oncology and pulmonology have been placed. Undiagnosed new problem with uncertain prognosis? @ -No Drug Therapy requiring intensive monitoring for toxicity (Heparin, Nitro, Insulin, Cardizem)? @ -No Were any procedures done? @ -No Diagnosis/symptom? @ -Right pleural effusion Acute, or Chronic, or Acute on Chronic? @ -Acute on chronic Uncomplicated (without systemic symptoms) or Complicated (systemic symptoms)? @ -default Side effects of treatment? @ -No Exacerbation, Progression, or Severe Exacerbation? @ -No Poses a threat to life or bodily function? How? (Chest pain, USA, ND, pneumonia, PE, COPD, DKA, ARF, appy, cholecystitis, CVA, Diverticulitis, Homicidal, Suicidal, threat to staff... and all critical care pts) @ -No Diagnosis/symptom? @ -Dyspnea Acute, or Chronic, or Acute on Chronic? @ -Acute Uncomplicated (without systemic symptoms) or Complicated (systemic symptoms)? @ -default Side effects of treatment? @ -none Exacerbation, Progression, or Severe Exacerbation] @ -no Poses a threat to life or bodily function? @ -no Diagnosis/symptom? @ -Lung cancer Acute, or Chronic, or Acute on Chronic? @ -Chronic Uncomplicated (without systemic symptoms) or Complicated (systemic symptoms)? @ -default Side effects of treatment? @ -none Exacerbation, Progression, or Severe Exacerbation] @ -no Poses a threat to life or bodily function? @ -Yes. Diagnosis/symptom? @ -SVC syndrome Acute, or Chronic, or Acute on Chronic? @ -default Uncomplicated (without systemic symptoms) or Complicated (systemic symptoms)? @ -default Side effects of treatment? @ -none Exacerbation, Progression, or Severe Exacerbation] @ -no Poses a threat to life or bodily function? @ -Yes, if left untreated. Diagnosis/symptom? @ -Left upper extremity edema Acute, or Chronic, or Acute on Chronic? @ -default Uncomplicated (without systemic symptoms) or Complicated (systemic symptoms)? @ -default Side effects of treatment? @ -none Exacerbation, Progression, or Severe Exacerbation] @ -no Poses a threat to life or bodily function? @ -no Diagnosis/symptom? @ -Hyponatremia Acute, or Chronic, or Acute on Chronic? @ -default Uncomplicated (without systemic symptoms) or Complicated (systemic symptoms)? @ -default Side effects of treatment? @ -none Exacerbation, Progression, or Severe Exacerbation] @ -no Poses a threat to life or bodily function? @ -no - Lab Data Result diagrams: 01/23/23 12:28 01/23/23 12:28 Lab Results 01/23/23 01/23/23 01/23/23 Range/Units 12:28 12:28 12:28 WBC 7.0 (3.8-10.6) k/uL RBC 3.56 L (3.80-5.40) m/uL Hgb 11.6 (11.4-16.0) gm/dL Hct 35.5 (34.0-46.0) % MCV 99.7 (80.0-100.0) fL MCH 32.6 (25.0-35.0) pg MCHC 32.7 (31.0-37.0) g/dL RDW 15.2 (11.5-15.5) % Plt Count 397 (150-450) k/uL MPV 8.1 Neutrophils % 84 % Lymphocytes % 8 % Monocytes % 6 % Eosinophils % 1 % Basophils % 0 % Neutrophils # 5.8 (1.3-7.7) k/uL Lymphocytes # 0.6 L (1.0-4.8) k/uL Monocytes # 0.4 (0-1.0) k/uL Eosinophils # 0.1 (0-0.7) k/uL Basophils # 0.0 (0-0.2) k/uL Macrocytosis Slight PT 10.1 (9.0-12.0) sec INR 1.0 (<1.2) APTT 31.1 H (22.0-30.0) sec Sodium 128 L (137-145) mmol/L Potassium 4.5 (3.5-5.1) mmol/L Chloride 96 L (98-107) mmol/L Carbon Dioxide 23 (22-30) mmol/L Anion Gap 9 mmol/L BUN 10 (7-17) mg/dL Creatinine 0.78 (0.52-1.04) mg/dL Est GFR (CKD-EPI)AfAm 85 (>60 ml/min/1.73 sqM) Est GFR (CKD-EPI)NonAf 74 (>60 ml/min/1.73 sqM) Glucose 97 (74-99) mg/dL Calcium 8.7 (8.4-10.2) mg/dL Total Bilirubin 0.4 (0.2-1.3) mg/dL AST 28 (14-36) U/L ALT 24 (4-34) U/L Alkaline Phosphatase 119 (38-126) U/L Troponin I (0.000-0.034) ng/mL NT-Pro-B Natriuret Pep pg/mL Total Protein 6.5 (6.3-8.2) g/dL Albumin 3.6 (3.5-5.0) g/dL 01/23/23 01/23/23 Range/Units 12:28 12:28 WBC (3.8-10.6) k/uL RBC (3.80-5.40) m/uL Hgb (11.4-16.0) gm/dL Hct (34.0-46.0) % MCV (80.0-100.0) fL MCH (25.0-35.0) pg MCHC (31.0-37.0) g/dL RDW (11.5-15.5) % Plt Count (150-450) k/uL MPV Neutrophils % % Lymphocytes % % Monocytes % % Eosinophils % % Basophils % % Neutrophils # (1.3-7.7) k/uL Lymphocytes # (1.0-4.8) k/uL Monocytes # (0-1.0) k/uL Eosinophils # (0-0.7) k/uL Basophils # (0-0.2) k/uL Macrocytosis PT (9.0-12.0) sec INR (<1.2) APTT (22.0-30.0) sec Sodium (137-145) mmol/L Potassium (3.5-5.1) mmol/L Chloride (98-107) mmol/L Carbon Dioxide (22-30) mmol/L Anion Gap mmol/L BUN (7-17) mg/dL Creatinine (0.52-1.04) mg/dL Est GFR (CKD-EPI)AfAm (>60 ml/min/1.73 sqM) Est GFR (CKD-EPI)NonAf (>60 ml/min/1.73 sqM) Glucose (74-99) mg/dL Calcium (8.4-10.2) mg/dL Total Bilirubin (0.2-1.3) mg/dL AST (14-36) U/L ALT (4-34) U/L Alkaline Phosphatase (38-126) U/L Troponin I 0.014 (0.000-0.034) ng/mL NT-Pro-B Natriuret Pep 229 pg/mL Total Protein (6.3-8.2) g/dL Albumin (3.5-5.0) g/dL - Radiology Data CT angiography chest with IV contrast: 1. No evidence for pulmonary embolism at this time. 2. Right suprahilar mass with postobstructive volume loss in mediastinal and hilar adenopathy unchanged. 3. Large increasing right-sided pleural effusion. Disposition Clinical Impression: Dyspnea, Edema of left upper extremity, Hyponatremia, Pleural effusion, right, SVC syndrome, Lung cancer Disposition: ADMITTED IP TO THIS HOSP Condition: Stable Is patient prescribed a controlled substance at d/c from ED?: No Referrals: Nan James MD [Primary Care Provider] - 1-2 days Time of Disposition: 15:50
[2023-01-23 13:46] LABS: Basophils % (A) 0 %; Eosinophils # (A) 0.1 k/uL (0-0.7); Eosinophils % (A) 1 %; HCT 35.5 % (34.0-46.0); HGB 11.6 gm/dL (11.4-16.0); Lymphocytes # (A) 0.6 k/uL (1.0-4.8); Lymphocytes % (A) 8 %; MCH 32.6 pg (25.0-35.0); MCHC 32.7 g/dL (31.0-37.0); MCV 99.7 fL (80.0-100.0); Macrocytosis Slight; Mean Platelet Volume 8.1; Monocytes # (A) 0.4 k/uL (0-1.0); Monocytes % (A) 6 %; Neutrophils # (A) 5.8 k/uL (1.3-7.7); Neutrophils % (A) 84 %; Platelet Count 397 k/uL (150-450); RBC 3.56 m/uL (3.80-5.40); RDW 15.2 % (11.5-15.5)
[2023-01-23 13:55] LABS: ALT 24 U/L (4-34); AST 28 U/L (14-36); African American GFR (CKD) 85 (>60 ml/min/1.73 sqM); Albumin 3.6 g/dL (3.5-5.0); Alkaline Phosphatase 119 U/L (38-126); Anion Gap 9 mmol/L; Blood Urea Nitrogen 10 mg/dL (7-17); Calcium 8.7 mg/dL (8.4-10.2); Carbon Dioxide 23 mmol/L (22-30); Chloride 96 mmol/L (98-107); Glucose 97 mg/dL (74-99); Non-African American GFR(CKD) 74 (>60 ml/min/1.73 sqM); Potassium 4.5 mmol/L (3.5-5.1); Sodium 128 mmol/L (137-145); Total Bilirubin 0.4 mg/dL (0.2-1.3); Total Protein 6.5 g/dL (6.3-8.2)
[2023-01-23 13:56] LABS: Partial Thromboplastin Time 31.1 sec (22.0-30.0); Prothrombin Time 10.1 sec (9.0-12.0)
--- NOTE | 2023-01-23 14:55 | CT ---
EXAMINATION TYPE: CT chest angio for PE DATE OF EXAM: 01/23/2023 COMPARISON: CT 01/15/2023 HISTORY: lung mass, SVC syndrome, R/O PE CT DLP: 236 mGycm CONTRAST: CT chest with contrast and 3D reconstruction with MIP imaging is performed with IV Contrast, patient injected with 100ML mL of Isovue 370. Contrast-enhanced CT of the chest was performed through the course of the pulmonary arteries with shona g and mediastinal window settings submitted. 3D reconstruction with MIP imaging was also performed. PULMONARY ARTERIES: The pulmonary arteries and their major tributaries are patent. I do not see emily dence for sizable filling defect to suggest pulmonary embolic process. LUNGS: Enlarging right-sided large pleural effusion. Right suprahilar mass with postobstructive volum e loss. Small left-sided pleural effusion and basilar atelectasis. MEDIASTINUM: Stable mediastinal adenopathy with encasement of the superior vena cava and luminal narr owing. Subcarinal adenopathy is right hilar adenopathy present. Thoracic aorta is of normal caliber. The heart is not enlarged. Small pericardial effusion noted with maximal thickness of 1 cm. HILAR STRUCTURES: No evidence for mass. No hilar lymph nodes greater than 1 cm. UPPER ABDOMEN: No significant abnormality is seen. IMPRESSION: 1. No evidence for Pulmonary embolism at this time. 2. Right suprahilar mass with postobstructive volume loss in mediastinal and hilar adenopathy unchang ed. 2. Large increasing right-sided pleural effusion.
[2023-01-23] MEDS ORDERED: NALOXONE 0.4 MG/ML 1 ML VIAL IV PRN (15:57)
--- NOTE | 2023-01-23 20:39 | P.CONS ---
History of Present Illness - Reason for Consult Consult date: 01/23/23 SVC syndrome Requesting physician: Nan James - Chief Complaint ADAN, increased RUE swelling - History of Present Illness Patient is 77-year-old female with a history of hypothyroidism and smoking who is here for left upper extremity edema that continues to worsen. Her story begins about 6 months ago when she presented with progressive dyspnea over the prior month. PCP sent her to the ER where CT/PE on 12/24/22 was negative for PE but did reveal suspicious endobronchial lesion in the right mainstem bronchus. Biopsy was positive for non-small cell carcinoma, cannot exclude metastases from upper GI tract or breast. She underwent PET scan and MRI of the brain which revealed bilateral supraclavicular lymphadenopathy, right supraclavicular lesion noted to be compliant with soft tissue measuring 4 x 2.5 cm and another right supraclavicular lymph node measuring 1.3 cm with an SUV of 16.8. She is found to have a right upper lung mass extending into the chest wall and mediastinum as well as mediastinal lymphadenopathy and right axillary lymphadenopathy. She als o had bilateral adrenal nodules. MRI of the brain was negative. She had pleural effusion and underwent thoracentesis on 01/15/23. Molecular studies positive for TP 53 and K-landon G1 to I, PD L1 23%. She developed left upper extremity swelling after IV access for the PET scan as well as right shoulder increased swelling. She had right face swelling and was referred to radiation oncology for concerns of SVC syndrome. Upper extremity ultrasound was obtained which revealed a right IJ DVT and she was started on outlook with a few days prior to this hospitalization. She was seen by Dr. Mercado in the clinic for follow-up on 01/20/23 and her testing results were discussed with her family, and plan was to proceed with palliative radiation to prevent progression of SVC syndrome as well as chemo immunotherapy with carbo, Taxol, and Keytruda. She was seen by Dr. Bai in rate on on 01/22/23 where she was having increased left upper extremity swelling and steroids were prescribed for her however the pharmacy was closed and she ended up presenting to the ER for further evaluation and management of her worsening left upper extremity swelling. CT/PE was negative for PE and revealed large right-sided pleural effusion as well as right suprahilar mass with postobstructive volume loss and small left-sided pleural effusion. Stable mediastinal adenopathy encasing the SVC with luminal narrowing was seen. We were consulted for possible SVC syndrome. Oncologic History: Seen by Dr. Ramirez Mercado on 01/06/23 and again on 01/20/23: Ms. Navarrete is a 77-year-old woman with past medical history significant for cigarette smoking and hypothyroidism who presents for a new diagnosis of non-small cell carcinoma. She initially noted having intermittent dry cough that started about 6 months ago, which was followed by progressive dyspnea over the past month. She was evaluated by her primary care physician Dr. James presented to the ED for additional management. CT PE on 12/24/2022 noted no e vidence of pulmonary embolism, but did note atelectasis of the right upper lobe and a portion of the right medial lobe. In addition, there were bilateral pleural effusions with moderate right pleural effusion and small left pleural effusion. She underwent bronchoscopy on 12/26/2022, which revealed suspicious endobronchial lesion in the right mainstem bronchus. Biopsy of this lesion revealed non-small cell carcinoma, which was positive for CK7 and negative for CK20, Napsin A, p40, TTF-1. IHC cannot exclude the possibility of metastasis from the upper GI tract or breast. PFTs performed on 01/01/2023 noted FEV1 58% of predicted with DLCO 36. PET/CT and brain MRI have been ordered and are cu rrently pending. Currently, Bhavya notes feeling well. Her cough remains intermittent in nature, but denies any progressive dyspnea at this time. She denies any hemoptysis, fevers, chills, night sweats, lymphadenopathy, anorexia, or weight loss. She is active during the day, not requiring significant rest or naps. She denies any headaches, visual deficits, ataxia, memory or personality changes. 01/20/23: Following her last visit, Bhavya had PET/CT on 01/15/2023, which noted FDG avid bilateral supraclavicular lymphadenopathy with a right supraclavicular lesion be noted as confluent soft tissue measuring 4 x 2.5 cm with SUV 16.3 along with another right supraclavicular lymph node measuring 1.3 cm with an SUV 16.8. The right upper lung mass was extending into the chest wall and mediastinum with SUV 16.3. Mediastinal lymphadenopathy that was FDG avid was also noted. Also revealed right axillary lymphadenopathy as well as bilateral FDG avid right adrenal nodules with max SUV of 8.5 on the right adrenal. Brain MRI revealed no evidence of intracranial metastases. She underwent thorac entesis on 01/15/2023, with 250 cc of yellow-red fluid removed. Cytology is pending. NGS from the original biopsy revealed TP53 and KRAS G12I mutations, which or not targetable. MSI high was negative, did note high tumor mutation burden at 18 mutations per megabase. PD-L1 was noted to be 2 to 3%. Guardant noted same KRAS G12I and TP53 mutations along with a KEAP1 mutation. She has swelling in the left arm, secondary to previous IV access site for the PET/CT. She also has increased swelling in the right shoulder. There is minor swelling in the right face without any dyspnea, hoarseness, headaches, or change in mental status. Rec's from last note: -Reviewed work-up performed to date with Ms. Navarrete, her daughter, and her -Images from PET/CT were reviewed with Bhavya and her family -She had intermittent dry cough for 6 months followed by progressive dyspnea for 1 month -CT PE revealed no evidence of pulmonary embolism, but did note atelectasis of the right upper lobe and hypertrophy of the right medial lobe with bilateral pleural effusions -Bronchoscopy on 12/26/2022 noted right mainstem endobronchial lesion with biopsy revealing non-small cell carcinoma -Given her smoking history along with location of the lesion in the proximal right mainstem bronchus, this is likely a lung primary non-small cell lung cancer as opposed to a metastatic lesion from another primary -Brain MRI on 01/12/2023 noted no evidence of intracranial metastases -PET/CT on 01/15/2023 noted FDG avid bilateral supraclavicular lymphadenopathy, left axillary lymphadenopathy, and bilateral adrenal gland nodules concerning for potential metastatic disease -Guardant 360 and NGS noted TP53 and KRAS G12I, which are nontargetable. KEAP1 mutation noted, which can confer increased resistance to immunotherapy. TMB elevated at 18 mutations/Mb with PD-L1 positivity at 2-3% -Clinical staging consistent with T4 N3 M1c stage IVB non-small cell lung cancer -Given the swelling in the right shoulder right side of the face with large soft tissue mass in the right supraclavicular region as well as the right upper lung invading into the mediastinum, I was concerned about the potential for the beginning of SVC syndrome -She is following with Dr. Bai of radiation oncology on 01/22/2023 -I did recommend palliative radiation to the right supraclavicular/right apical lung region to help prevent additional progression of SVC syndrome -We will obtain Doppler of the left upper extremity and right neck to assess for DVT -Given metastatic disease and no targetable mutations, I did recommend chemoimmunotherapy with carboplatin/paclitaxel/pembrolizumab -We did discuss general treatment schedule with treatment once every 3 weeks for 4 cycles. If there was evidence of treatment response, she will be maintained on single agent pembrolizumab -We will arrange for chemotherapy teaching session to review regimen and toxicities in detail Past Medical History Past Medical History: Thyroid Disorder Additional Past Medical History / Comment(s): Heart Murmur. 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 current lung cancer. History of Any Multi-Drug Resistant Organisms: None Reported Past Surgical History: No Surgical Hx Reported Additional Past Surgical History / Comment(s): Colonoscopy. Past Anesthesia/Blood Transfusion Reactions: Family History of Problems w/ Anesthesia, Postoperative Nausea & Vomiting (PONV) Additional Past Anesthesia/Blood Transfusion Reaction / Comm: Mom allergic to a lot of anesthetics. Past Psychological History: No Psychological Hx Reported Smoking Status: Current every day smoker Past Alcohol Use History: Rare Past Drug Use History: None Reported - Past Family History Father Family Medical History: Cancer Medications and Allergies Home Medications Medication Instructions Recorded Confirmed Type Calcium Carbonate [Calcium] 600 mg PO DAILY 07/13/19 01/23/23 History Atorvastatin [Lipitor] 40 mg PO DAILY 12/24/22 01/23/23 History Cholecalciferol (Vitamin D3) 75 mcg PO DAILY 12/24/22 01/23/23 History [Vitamin D3 (3000 Iu)] Budesonide-Formot 160-4.5 Mcg 2 puff INHALATION RT-BID #120 each 12/27/22 01/23/23 Rx [Symbicort 160-4.5 Mcg Inhaler] Furosemide [Lasix] 40 mg PO DAILY #30 tab 12/27/22 01/23/23 Rx Pantoprazole [Protonix] 40 mg PO AC-BRKFST #30 tab 12/27/22 01/23/23 Rx Potassium Chloride ER [K-Dur 20] 20 meq PO DAILY #30 tab 12/27/22 01/23/23 Rx Albuterol Inhaler [Ventolin Hfa 2 puff INHALATION RT-Q6H PRN 01/20/23 01/23/23 History Inhaler] Fluticasone/Umeclidin/Vilanter 1 puff INHALATION RT-DAILY 01/20/23 01/23/23 History [Trelegy Ellipta 200-62.5-25] Levothyroxine Sodium [Synthroid] 88 mcg PO DAILY 01/20/23 01/23/23 History Apixaban [Eliquis Starter Pack See Taper PO DIRECTED 01/23/23 01/23/23 History (for VTE)] Apixaban [Eliquis] 5 mg PO DIRECTED 01/23/23 01/23/23 History Allergies Allergy/AdvReac Type Severity Reaction Status Date / Time No Known Allergies Allergy Verified 01/23/23 12:30 Physical Exam Vitals: Vital Signs Temp Pulse Resp BP Pulse Ox 01/23/23 18:00 80 18 134/74 95 01/23/23 14:52 89 18 147/70 95 01/23/23 11:54 98.1 F 84 16 169/75 95 Intake and Output 01/23/23 01/23/23 01/23/23 06:59 14:59 22:59 Other: Weight 57.606 kg The patient is lying in a stretcher, in no acute distress. Alert and oriented 3. Left upper extremity with significant edema especially compared to the right upper extremity. Nontender without any significant erythema or warmth. Has some mild swelling of the right face. No overt neurologic deficits. Jaundice. No respiratory distress. Results CBC & Chem 7: 01/23/23 12:28 01/23/23 12:28 Labs: Abnormal Lab Results - Last 24 Hours (Table) 01/23/23 01/23/23 01/23/23 Range/Units 12:28 12:28 12:28 RBC 3.56 L (3.80-5.40) m/uL Lymphocytes # 0.6 L (1.0-4.8) k/uL APTT 31.1 H (22.0-30.0) sec Sodium 128 L (137-145) mmol/L Chloride 96 L (98-107) mmol/L CT scan - chest: report reviewed, image reviewed Assessment and Plan Assessment: 1. Metastatic non-small cell lung cancer 2. Left upper extremity swelling, likely obstructive 3. SVC syndrome 4. Right IJ DVT 5. Hyponatremia malignancy Plan: Patient is a 77-year-old female with a recent diagnosis of metastatic non-small cell lung cancer, right apical mass with associated right pleural effusion and right IJ DVT. Revealing signs of mild right-sided SVC syndrome. Found to have worsening left upper extremity swelling and presented to the ER if she was unable to receive the steroids were prescribed by radiation oncology. - Consult radiation oncology - Steroids, Decadron ordered - We'll need to ensure she has the appropriate pain medication prior to radiation and she was told that she will need this by Dr. 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 All their questions were answered.
[2023-01-23] MEDS: DEXAMETHASONE SOD PHOSPHATE 4 MG/ML 1 ML VIAL IVP SCH (21:08)
[2023-01-24] MEDS: DEXAMETHASONE SOD PHOSPHATE 4 MG/ML 1 ML VIAL IVP SCH ×5 (00:28→23:30)
[2023-01-24 08:03] LABS: ALT 21 U/L (4-34); AST 23 U/L (14-36); African American GFR (CKD) >90 (>60 ml/min/1.73 sqM); Albumin 3.4 g/dL (3.5-5.0); Albumin/Globulin Ratio 1.2; Alkaline Phosphatase 107 U/L (38-126); Anion Gap 9 mmol/L; Basophils % (A) 0 %; Blood Urea Nitrogen 11 mg/dL (7-17); Calcium 8.6 mg/dL (8.4-10.2); Carbon Dioxide 23 mmol/L (22-30); Chloride 99 mmol/L (98-107); Eosinophils % (A) 1 %; Globulin 2.8 g/dL; Glucose 136 mg/dL (74-99); HCT 35.2 % (34.0-46.0); HGB 11.6 gm/dL (11.4-16.0); Lymphocytes # (A) 0.3 k/uL (1.0-4.8); Lymphocytes % (A) 8 %; MCH 33.2 pg (25.0-35.0); MCHC 32.9 g/dL (31.0-37.0); Macrocytosis Slight; Mean Platelet Volume 7.6; Monocytes # (A) 0.1 k/uL (0-1.0); Monocytes % (A) 2 %; Neutrophils # (A) 3.5 k/uL (1.3-7.7); Neutrophils % (A) 89 %; Non-African American GFR(CKD) 86 (>60 ml/min/1.73 sqM); Platelet Count 368 k/uL (150-450); Potassium 4.8 mmol/L (3.5-5.1); RBC 3.48 m/uL (3.80-5.40); RDW 15.2 % (11.5-15.5); Sodium 131 mmol/L (137-145); Total Bilirubin 0.3 mg/dL (0.2-1.3); Total Protein 6.2 g/dL (6.3-8.2)
[2023-01-24] MEDS ORDERED: HEPARIN SODIUM 1,000 UN/ML (10ML VL) IV ONE (09:37)
[2023-01-24] MEDS ORDERED: HEPARIN SODIUM 1,000 UN/ML (10ML VL) IV PRN (09:37)
[2023-01-24] MEDS ORDERED: HEPARIN SOD,PORK IN 0.45% NACL 25,000 UNIT in 0.45% NACL 1 250ML.BAG IV SCH (09:45)
[2023-01-24 10:20] LABS: Basophils % (A) 0 %; Eosinophils % (A) 0 %; HCT 35.1 % (34.0-46.0); HGB 11.6 gm/dL (11.4-16.0); Lymphocytes # (A) 0.4 k/uL (1.0-4.8); Lymphocytes % (A) 6 %; MCH 32.2 pg (25.0-35.0); MCHC 33.1 g/dL (31.0-37.0); MCV 97.4 fL (80.0-100.0); Macrocytosis Slight; Mean Platelet Volume 7.8; Monocytes # (A) 0.2 k/uL (0-1.0); Monocytes % (A) 3 %; Neutrophils # (A) 5.4 k/uL (1.3-7.7); Neutrophils % (A) 91 %; Platelet Count 404 k/uL (150-450); RDW 15.7 % (11.5-15.5); WBC 5.9 k/uL (3.8-10.6)
[2023-01-24 10:28] LABS: INR 0.9 (<1.2); Partial Thromboplastin Time 28.4 sec (22.0-30.0); Prothrombin Time 9.6 sec (9.0-12.0)
[2023-01-24] MEDS: IPRATROPIUM 0.5 MG/2.5 ML NEBU INHALATION SCH ×3 (11:33→21:02)
[2023-01-24] MEDS: LEVOTHYROXINE 88 MCG TAB PO SCH (12:34)
[2023-01-24] MEDS: CALCIUM CARBONATE 500 MG CHEWABLE PO SCH (12:41)
[2023-01-24] MEDS: CHOLECALCIFEROL 25 MCG (1000 IU) TABLET PO SCH (12:41)
[2023-01-24] MEDS: FUROSEMIDE 40 MG TAB PO SCH (12:41)
[2023-01-24] MEDS: ATORVASTATIN 40 MG TAB PO SCH (12:41)
--- NOTE | 2023-01-24 13:04 | P.CNPUL ---
History of Present Illness Consult date: 01/24/23 Reason for consult: pleural effusion, lung mass History of present illness: Patient is 77-year-old female , presented to the hospital because of worsening shortness of breath. The patient has signs of SVC syndrome and the patient has also developed increased edema in her face neck, upper extremities and arms. She had recent diagnosis of non-small cell lung cancer. The diagnosis established by bronchoscopy and biopsy of the endobronchial lesions.. The patient underwent a bronchoscopy and there was some endobronchial abnormalities of the level of the main jessica and endobronchial biopsies were consistent with malignancy. The patient was diagnosed having non-small cell lung cancer. The patient also had a diagnostic thoracentesis with a total of 250 mL of fluid was aspirated from the right lung and the fluid cytology was negative for malignancy. She has history of hypothyroidism and smoking who is here for left upper extremity edema that continues to worsen. She was having shortness of breath and her PCP sent her to the ER where CT/PE on 12/24/22 was negative for PE but did reveal suspicious endobronchial lesion in the right mainstem bronchus. Biopsy was positive for non-small cell carcinoma, cannot exclude metastases from upper GI tract or breast. She underwent PET scan and MRI of the brain which revealed bilateral supraclavicular lymphadenopathy, right supraclavicular lesion noted to be compliant with soft tissue measuring 4 x 2.5 cm and another right supraclavicular lymph node measuring 1.3 cm with an SUV of 16.8. She is found to have a right upper lung mass extending into the chest wall and mediastinum as well as mediastinal lymphadenopathy and right axillary lymphadenopathy. She also had bilateral adrenal nodules. MRI of the brain was negative. She had pleural effusion and underwent thoracentesis on 01/15/23. Molecular studies positive for TP 53 and K-landon G1 to I, PD L1 23%. She developed left upper extremity swelling after IV access for the PET scan as well as right shoulder increased swelling. She had right face swelling and was referred to radiation oncology for concerns of SVC syndrome. Upper extremity ultrasound was obtained which revealed a right IJ DVT and she was started on ou tlook with a few days prior to this hospitalization. She was seen by Dr. Mercado in the clinic for follow-up on 01/20/23 and her testing results were discussed with her family, and plan was to proceed with palliative radiation to prevent progression of SVC syndrome as well as chemo immunotherapy with carbo, Taxol, and Keytruda. She was seen by Dr. Bai in rate on on 01/22/23 where she was having increased left upper extremity swelling and steroids were prescribed . Based on that, the patient came to the emergency department and the repeat CAT scan of the chest was done CT/PE was negative for PE and revealed large right-sided pleural effusion as well as right suprahilar mass with postobstructive volume loss and small left-sided pleural effusion. Stable mediastinal adenopathy encasing the SVC with luminal narrowing was seen. Noted the patient was taken into coagulation with Eliquis that was given to her, over diagnosed with IJ thrombosis. The anticoagulation was placed on hold for around 48 hours in preparation for thoracentesis. Review of Systems Constitutional: Reports fatigue, Reports weight loss Eyes: denies as per HPI, denies blurred vision, denies bulging eye, denies decreased vision, denies diplopia, denies discharge, denies dry eye, denies irritation, denies itching, denies pain, denies photophobia, denies loss of peripheral vision, denies loss of vision, denies tunnel vision/blind spots Ears: deny: decreased hearing, ear discharge, earache, tinnitus Ears, nose, mouth and throat: Reports as per HPI Breasts: absent: as per HPI, change in shape, gynecomastia, masses, nipple discharge, pain, skin changes, swelling Cardiovascular: Reports decreased exercise tolerance, Reports dyspnea on exertion Respiratory: Reports dyspnea Gastrointestinal: Reports as per HPI Genitourinary: Reports as per HPI Menstruation: Reports as per HPI Musculoskeletal: Reports as per HPI (Arm swelling bilaterally) Musculoskeletal: absent: ankle pain, ankle stiffness, ankle swelling Integumentary: Reports as per HPI Neurological: Reports as per HPI Psychiatric: Reports as per HPI Endocrine: Reports as per HPI Hematologic/Lymphatic: Reports as per HPI Allergic/Immunologic: Reports as per HPI Past Medical History Past Medical History: Cancer (Small cell lung cancer), Thyroid Disorder Additional Past Medical History / Comment(s): Small cell lung cancer. 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 History of Any Multi-Drug Resistant Organisms: None Reported Past Surgical History: No Surgical Hx Reported Additional Past Surgical History / Comment(s): Colonoscopy, thoracentesis Past Anesthesia/Blood Transfusion Reactions: Family History of Problems w/ Anesthesia, Postoperative Nausea & Vomiting (PONV) Additional Past Anesthesia/Blood Transfusion Reaction / Comment(s): Mom allergic to a lot of anesthetics. Past Psychological History: No Psychological Hx Reported Smoking Status: Current every day smoker Past Alcohol Use History: Rare Additional Past Alcohol Use History / Comment(s): Has been smoking since 30 yrs old, 6-7 cigarettes per day. Past Drug Use History: None Reported - Past Family History Father Family Medical History: Cancer Medications and Allergies Home Medications Medication Instructions Recorded Confirmed Type Calcium Carbonate [Calcium] 600 mg PO DAILY 07/13/19 01/23/23 History Atorvastatin [Lipitor] 40 mg PO DAILY 12/24/22 01/23/23 History Cholecalciferol (Vitamin D3) 75 mcg PO DAILY 12/24/22 01/23/23 History [Vitamin D3 (3000 Iu)] Budesonide-Formot 160-4.5 Mcg 2 puff INHALATION RT-BID #120 each 12/27/22 01/23/23 Rx [Symbicort 160-4.5 Mcg Inhaler] Furosemide [Lasix] 40 mg PO DAILY #30 tab 12/27/22 01/23/23 Rx Pantoprazole [Protonix] 40 mg PO AC-BRKFST #30 tab 12/27/22 01/23/23 Rx Potassium Chloride ER [K-Dur 20] 20 meq PO DAILY #30 tab 12/27/22 01/23/23 Rx Albuterol Inhaler [Ventolin Hfa 2 puff INHALATION RT-Q6H PRN 01/20/23 01/23/23 History Inhaler] Fluticasone/Umeclidin/Vilanter 1 puff INHALATION RT-DAILY 01/20/23 01/23/23 History [Trelegy Ellipta 200-62.5-25] Levothyroxine Sodium [Synthroid] 88 mcg PO DAILY 01/20/23 01/23/23 History Apixaban [Eliquis Starter Pack See Taper PO DIRECTED 01/23/23 01/23/23 History (for VTE)] Apixaban [Eliquis] 5 mg PO DIRECTED 01/23/23 01/23/23 History Allergies Allergy/AdvReac Type Severity Reaction Status Date / Time No Known Allergies Allergy Verified 01/23/23 12:30 Physical Exam Vitals: Vital Signs Temp Pulse Pulse Resp BP BP Pulse Ox 01/24/23 07:23 98.2 F 69 18 132/81 93 L 01/24/23 02:55 94 L 01/24/23 01:50 97.9 F 79 18 115/67 91 L 01/23/23 21:06 98.4 F 81 18 119/72 93 L 01/23/23 18:00 80 18 134/74 95 01/23/23 14:52 89 18 147/70 95 01/23/23 11:54 98.1 F 84 16 169/75 95 Intake and Output 01/23/23 01/24/23 01/24/23 22:59 06:59 14:59 Intake Total 240 Balance 240 Intake: Oral 240 Other: # Voids 1 Weight 57.606 kg Gen. appearance the patient is, comfortable and she is currently on oxygen at 2 L. There is some facial swelling Head exam was generally normal. There was no scleral icterus or corneal arcus. Mucous membranes were moist, and the patient has obvious facial swelling Neck was supple and without jugular venous distension, thyromegaly, or carotid bruits. Carotids were easily palpable bilaterally. There was no adenopathy. Positive jugular venous distentions Lungs sounds are diminished in the right lung base along with dullness to percussion on the right Cardiac exam revealed the PMI to be normally situated and sized. The rhythm was regular and no extrasystoles were noted during several minutes of auscultation. The first and second heart sounds were normal and physiologic splitting of the second heart sound was noted. There were no murmurs, rubs, clicks, or gallops. Abdominal exam revealed normal bowel sounds. The abdomen was soft, non-tender, and without masses, organomegaly, or appreciable enlargement of the abdominal aorta. Examination of the extremities revealed easily palpable radial, femoral and pedal pulses. There was no cyanosis, clubbing or edema. Examination of the skin revealed no evidence of significant rashes, suspicious appearing nevi or other concerning lesions. No engorgement of the superficial vessels/veins of the chest. Neurologically, the patient is awake and alert and the patient does not have any focal neurological deficit. Cranial nerves are essentially intact. Results - Laboratory Findings CBC and BMP: 01/24/23 09:57 01/24/23 07:09 PT/INR, D-dimer PT 9.6 sec (9.0-12.0) 01/24/23 09:57 INR 0.9 (<1.2) 01/24/23 09:57 Abnormal lab findings: Abnormal Labs 01/23/23 01/23/23 01/23/23 12:28 12:28 12:28 RBC 3.56 L MCV RDW Lymphocytes # 0.6 L APTT 31.1 H Sodium 128 L Chloride 96 L Glucose Total Protein Albumin 01/24/23 01/24/23 01/24/23 07:09 07:09 09:57 RBC 3.48 L 3.60 L MCV 101.0 H RDW 15.7 H Lymphocytes # 0.3 L 0.4 L APTT Sodium 131 L Chloride Glucose 136 H Total Protein 6.2 L Albumin 3.4 L - Diagnostic Findings Chest x-ray: image reviewed CT scan - chest: image reviewed Assessment and Plan Plan: Poorly differentiated metastatic non-small cell lung cancer, post bronchoscopy and endobronchial tumor in the jessica biopsies of the diagnosis established. SVC syndrome related mediastinal mass causing mass effect on the SVC Patient and upper extremity swelling, likely secondary to above Right IJ DVT Right-sided pleural effusion moderate to large size SIADH with limited use averaging with a sodium level of 128 Shortness of breath secondary to above Acute hypoxic respiratory failure currently on 2 L of oxygen by nasal cannula Plan We will give the patient thoracentesis for symptomatic relief. Postthoracentesis, the patient can be restarted back on anticoagulation with Eliquis. Ranges of being made for chemotherapy and radiation therapy for SVC syndrome. chemo immunotherapy with carbo, Taxol, and Keytruda is to follow Continue IV Decadron 4 mg every 6 hours Continue Symbicort fluid restriction Lasix 40 mg by mouth daily We'll continue to follow.
--- NOTE | 2023-01-24 13:05 | P.PCN ---
Date of Procedure: 01/24/23 Preoperative Diagnosis: Right-sided pleural effusion Postoperative Diagnosis: Right-sided pleural effusion Procedure(s) Performed: Thoracentesis, right side Anesthesia: local Surgeon: Lauren Ott Pathology: other Condition: stable Disposition: floor Operative Findings: A time out was performed and the chest x-ray was reviewed, the appropriate side was confirmed and marked. My hands were washed immediately prior to the procedure. I wore a surgical cap, mask with protective eyewear, sterile gown and sterile gloves throughout the procedure. The patient was prepped and draped in a sterile manner using chlorhexidine scrub after the appropriate level was percussed and confirmed by ultrasound. 1% lidocaine was used to anesthesize the skin, subcutaneous tissue, superior aspect of the rib periosteum and parietal pleura. A finder needle was then introduced over the superior aspect of the rib to locate the pleural fluid; 2colored fluid was aspirated at a depth of approximately 2 cm. A 10-blade scalpel was used to vivi the skin at the insertion site. The [id number] needle was then introduced through the skin incision into the pleural space using negative aspiration pressure and the red colometric indicator to confirm appropriate positioning of the needle. The thoracentesis catheter was then threaded without difficulty. 1000 ml of turbid colored fluid was removed without difficulty. The catheter was then removed. No immediate complications were noted during the procedure. A post-procedure chest x-ray is pending at the time of this note. The fluid will not be sent for studies. Estimated blood loss is 0cc
--- NOTE | 2023-01-24 14:25 | P.HPIM ---
History of Present Illness H&P Date: 01/24/23 History of present illness; patient is a 77-year-old lady with past medical history significant for hypothyroidism, non-small cell lung cancer who was brought to the ER by her daughter for worsening facial swelling, shortness of breath and left arm swelling. Patient was recently worked up with CT/PE on 12/24/22 which was negative for PE but did reveal suspicious endobronchial lesion in the right mainstem bronchus. Biopsy was positive for non-small cell carcinoma, cannot exclude metastases from upper GI tract or breast. She underwent PET scan and MRI of the brain which revealed bilateral supraclavicular lymphadenopathy, right supraclavicular lesion noted to be compliant with soft tissue measuring 4 x 2.5 cm and another right supraclavicular lymph node measuring 1.3 cm with an SUV of 16.8. She is found to have a right upper lung mass extending into the chest wall and mediastinum as well as mediastinal lymphadenopathy and right axillary lymphadenopathy. She also had bilateral adrenal nodules. MRI of the brain was negative. She had pleural effusion and underwent thoracentesis on 01/15/23. Molecular studies positive for TP 53 and K- landon G1 to I, PD L1 23%. Patient stated that she started developing facial swelling about a week ago following that patient also started having left arm swelling. Patient came to the ER and found to have right IJ DVT for which she was discharged on Eliquis. Patient was followed up outpatient by her oncologist and radiation oncologist they were concerned and patient was developing SVC syndrome, patient was given a prescription of steroids by her radiation oncologist but was unable to pick it up. Because of the worsening shortness of breath, patient came to the ER. Initial lab work in the ER showed WBC 7, hemoglobin 11.6, platelet count 397, sodium 128, potassium 4.5, BUN 10, creatinine 0.78, AST 28, ALT 24, CTA chest done showed no PE, showed right suprahilar mass with a postobstructive volume loss in mediastinal and hilar adenopathy ,large increasing right pleural fusion REVIEW OF SYSTEMS: CONSTITUTIONAL: No fever, no malaise, no fatigue. HEENT: No recent visual problems or hearing problems. Denied any sore throat. CARDIOVASCULAR: No chest pain, orthopnea, PND, no palpitations, no syncope. PULMONARY: As mentioned in HPI GASTROINTESTINAL: No diarrhea, no nausea, no vomiting, no abdominal pain. NEUROLOGICAL: No headaches, no weakness, no numbness. HEMATOLOGICAL: Denies any bleeding or petechiae. GENITOURINARY: Denies any burning micturition, frequency, or urgency. MUSCULOSKELETAL/RHEUMATOLOGICAL: Left upper extremity swelling ENDOCRINE: Denies any polyuria or polydipsia. The rest of the 14-point review of systems is negative. PHYSICAL EXAMINATION: GENERAL: The patient is alert and oriented x3, not in any acute distress. Well developed, well nourished. HEENT: Pupils are round and equally reacting to light. EOMI. No scleral icterus. No conjunctival pallor. Normocephalic, atraumatic. No pharyngeal erythema. No thyromegaly. CARDIOVASCULAR: S1 and S2 present. No murmurs, rubs, or gallops. PULMONARY: Chest is clear to auscultation, no wheezing or crackles. ABDOMEN: Soft, nontender, nondistended, normoactive bowel sounds. No palpable organomegaly. MUSCULOSKELETAL: Left upper extremity swelling noted EXTREMITIES: No cyanosis, clubbing, or pedal edema. NEUROLOGICAL: Gross neurological examination did not reveal any focal deficits. SKIN: No rashes. 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 current lung cancer. History of Any Multi-Drug Resistant Organisms: None Reported Past Surgical History: No Surgical Hx Reported Additional Past Surgical History / Comment(s): Colonoscopy, thoracentesis Past Anesthesia/Blood Transfusion Reactions: Family History of Problems w/ Anesthesia, Postoperative Nausea & Vomiting (PONV) Additional Past Anesthesia/Blood Transfusion Reaction / Comment(s): Mom allergic to a lot of anesthetics. Past Psychological History: No Psychological Hx Reported Smoking Status: Current every day smoker Past Alcohol Use History: Rare Additional Past Alcohol Use History / Comment(s): Has been smoking since 30 yrs old, 6-7 cigarettes per day. Past Drug Use History: None Reported - Past Family History Father Family Medical History: Cancer Medications and Allergies Home Medications Medication Instructions Recorded Confirmed Type RX: Calcium Carbonate [Calcium] 600 mg PO DAILY 07/13/19 01/23/23 History RX: Atorvastatin [Lipitor] 40 mg PO DAILY 12/24/22 01/23/23 History RX: Cholecalciferol (Vitamin D3) 75 mcg PO DAILY 12/24/22 01/23/23 History [Vitamin D3 (3000 Iu)] RX: Budesonide-Formot 160-4.5 Mcg 2 puff INHALATION RT-BID #120 each 12/27/22 01/23/23 Rx [Symbicort 160-4.5 Mcg Inhaler] RX: Furosemide [Lasix] 40 mg PO DAILY #30 tab 12/27/22 01/23/23 Rx RX: Pantoprazole [Protonix] 40 mg PO AC-BRKFST #30 tab 12/27/22 01/23/23 Rx RX: Potassium Chloride ER [K-Dur 20 meq PO DAILY #30 tab 12/27/22 01/23/23 Rx 20] Albuterol Inhaler [Ventolin Hfa 2 puff INHALATION RT-Q6H PRN 01/20/23 01/23/23 History Inhaler] Fluticasone/Umeclidin/Vilanter 1 puff INHALATION RT-DAILY 01/20/23 01/23/23 History [Trelegy Ellipta 200-62.5-25] Levothyroxine Sodium [Synthroid] 88 mcg PO DAILY 01/20/23 01/23/23 History Apixaban [Eliquis Starter Pack See Taper PO DIRECTED 01/23/23 01/23/23 History (for VTE)] Apixaban [Eliquis] 5 mg PO DIRECTED 01/23/23 01/23/23 History Allergies Allergy/AdvReac Type Severity Reaction Status Date / Time No Known Allergies Allergy Verified 01/23/23 12:30 Physical Exam Vitals: Vital Signs Temp Pulse Pulse Resp BP BP Pulse Ox 01/24/23 07:23 98.2 F 69 18 132/81 93 L 01/24/23 02:55 94 L 01/24/23 01:50 97.9 F 79 18 115/67 91 L 01/23/23 21:06 98.4 F 81 18 119/72 93 L 01/23/23 18:00 80 18 134/74 95 01/23/23 14:52 89 18 147/70 95 01/23/23 11:54 98.1 F 84 16 169/75 95 Intake and Output 01/23/23 01/24/23 01/24/23 22:59 06:59 14:59 Intake Total 240 Balance 240 Intake: Oral 240 Other: # Voids 1 Weight 57.606 kg Results CBC & Chem 7: 01/24/23 09:57 01/24/23 07:09 Labs: Abnormal Lab Results - Last 24 Hours (Table) 01/23/23 01/23/23 01/23/23 Range/Units 12:28 12:28 12:28 RBC 3.56 L (3.80-5.40) m/uL MCV (80.0-100.0) fL Lymphocytes # 0.6 L (1.0-4.8) k/uL APTT 31.1 H (22.0-30.0) sec Sodium 128 L (137-145) mmol/L Chloride 96 L (98-107) mmol/L Glucose (74-99) mg/dL Total Protein (6.3-8.2) g/dL Albumin (3.5-5.0) g/dL 01/24/23 01/24/23 Range/Units 07:09 07:09 RBC 3.48 L (3.80-5.40) m/uL MCV 101.0 H (80.0-100.0) fL Lymphocytes # 0.3 L (1.0-4.8) k/uL APTT (22.0-30.0) sec Sodium 131 L (137-145) mmol/L Chloride (98-107) mmol/L Glucose 136 H (74-99) mg/dL Total Protein 6.2 L (6.3-8.2) g/dL Albumin 3.4 L (3.5-5.0) g/dL Thrombosis Risk Factor Assmnt - Choose All That Apply Any of the Below Risk Factors Present?: No Other Risk Factors: Yes Each Risk Factor Represents 2 Points: Malignancy Each Risk Factor Represents 3 Points: Age 75 years or older Thrombosis Risk Factor Assessment Total Risk Factor Score: 5 Thrombosis Risk Factor Assessment Level: High Risk
[2023-01-24] MEDS: SYMBICORT 160-4.5 MCG INHALER INHALATION SCH (21:01)
[2023-01-24] MEDS: APIXABAN 5 MG TAB PO SCH (21:25)
[2023-01-25] MEDS: DEXAMETHASONE SOD PHOSPHATE 4 MG/ML 1 ML VIAL IVP SCH ×3 (05:17→17:44)
[2023-01-25] MEDS: LEVOTHYROXINE 88 MCG TAB PO SCH (05:18)
[2023-01-25] MEDS: IPRATROPIUM 0.5 MG/2.5 ML NEBU INHALATION SCH ×5 (08:07→20:21)
[2023-01-25] MEDS: SYMBICORT 160-4.5 MCG INHALER INHALATION SCH ×3 (08:07→20:21)
--- NOTE | 2023-01-25 08:08 | XR ---
EXAMINATION TYPE: XR chest 1V portable DATE OF EXAM: 01/25/2023 COMPARISON: 01/15/2023, CT 01/23/2023 INDICATION: Pleural effusion, SVC syndrome, lung cancer TECHNIQUE: Single frontal view of the chest is obtained. FINDINGS: The heart size is normal. The pulmonary vasculature is normal. There is a large opacity over the right upper medial lung field present previously. Small bilateral p leural effusions are present. Adjacent infiltrates are present. IMPRESSION: 1. Developing small bilateral pleural effusions with adjacent compressive atelectasis. 2. Stable appearance right upper lobe mass
[2023-01-25] MEDS: APIXABAN 5 MG TAB PO SCH ×2 (08:47→20:51)
[2023-01-25] MEDS: CHOLECALCIFEROL 25 MCG (1000 IU) TABLET PO SCH (08:47)
[2023-01-25] MEDS: PANTOPRAZOLE 40 MG TABLET PO SCH (08:48)
[2023-01-25] MEDS: POTASSIUM CHLORIDE ER 20 MEQ TAB.ER PO SCH (08:48)
[2023-01-25] MEDS: ATORVASTATIN 40 MG TAB PO SCH (08:48)
[2023-01-25] MEDS: FUROSEMIDE 40 MG TAB PO SCH (08:48)
[2023-01-25] MEDS: CALCIUM CARBONATE 500 MG CHEWABLE PO SCH (08:48)
[2023-01-25 09:29] LABS: Basophils # (A) 0.01 X 10*3/uL (0.00-0.10); Basophils % (A) 0.1 %; Eosinophils # (A) 0 X 10*3/uL (0.04-0.35); Eosinophils % (A) 0 %; HCT 33.1 % (37.2-46.3); HGB 10.9 d/dL (12.0-15.0); Lymphocytes % (A) 4.3 %; MCH 31.6 pg (27.0-32.0); MCHC 32.9 d/dL (32.0-37.0); MCV 95.9 FL (80.0-97.0); Mean Platelet Volume 9.7 FL (9.5-12.2); Monocytes # (A) 0.49 X 10*3/uL (0.20-1.00); Monocytes % (A) 4.2 %; NRBC Per 100 WBC 0 X 10*3/uL (0.00-0.01); Neutrophils # (A) 10.52 X 10*3/uL (1.80-7.70); Neutrophils % (A) 90.6 %; Platelet Count 437 X 10*3/uL (140-440); RBC 3.45 X 10*6/uL (4.10-5.20); RDW 16.8 % (11.5-14.5); WBC 11.61 X 10*3/uL (4.50-10.00)
--- NOTE | 2023-01-25 09:41 | P.GSCN ---
History of Present Illness Consult date: 01/25/23 Reason for Consult: Recurrent right pleural effusion, evaluate for Pleurx catheter placement Requesting physician: Richelle Sosa History of present illness: This is a 77-year-old female patient who follows with Dr. James for her primary care, Dr. Salazar for her pulmonary care and Dr. Ramirez Mercado for her oncology care. 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 On 01/23/2023 the patient presented to the emergency department here at [facility] with complaints of facial swelling, left arm swelling and shortness of breath. According to the patient and the patient's daughter present at her bedside she was diagnosed with a right IJ deep vein thrombosis around 3 days ago and was started on Eliquis for anticoagulation. The patient states that the left arm swelling and her shortness of breath were progressively getting worse which scared her. She denies any recent fever, chills, nausea, vomiting, palpitations, dizziness, nausea, vomiting, hematemesis, hemoptysis, diarrhea, constipation, leg or calf swelling, headache, chest pain or pressure. Initial laboratory results showed a WBC count of 7.0, hemoglobin 11.6, hematocrit 35.5, platelets 397, PT 10.1, INR 1.0, PTT 31.1, sodium 128, potassium 4.5, chloride 96, BUN 10, creatinine 0.78, troponin I 0.014, and proBNP 229. Due to the patient's presenting symptoms and history a CT chest angiogram for PE protocol was completed which showed no evidence for pulmonary embolus, right suprahilar mass with postobstructive volume loss in me diastinal and hilar adenopathy unchanged, and a large increasing right-sided pleural effusion. Due to the patient's history and findings of a large right pleural effusion Dr. Ott from pulmonary medicine was consulted. Dr. Ott reviewed the findings of right pleural effusion with the patient and subsequently the patient underwent a right-sided thoracentesis yesterday 01/24/2023 with 1000 mL of turbid-colored fluid drained. This morning on assessment the patient does report that her breathing feels improved after having the thoracentesis completed. Due to the patient's recurrent right-sided pleural effusions a consult was placed to Dr. Rafa Maldonado from cardiothoracic surgery for further evaluation and treatment recommendations including placement of right sided Pleurx catheter. Review of Systems A 14 point review of systems was completed and was negative except as mentioned in the HPI. Past Medical History Past Medical History: Cancer (Recent diagnosis of non-small lung cancer), Hyperlipidemia, Thyroid Disorder Additional Past Medical History / Comment(s): Heart Murmur. osteoporosis., Per pt she has "3 leaky heart valves". current lung cancer. DVT to her right IJ, possible SVC syndrome. History of Any Multi-Drug Resistant Organisms: None Reported Additional Past Surgical History / Comment(s): Colonoscopy, thoracentesis x2, history of back and neck surgery Past Anesthesia/Blood Transfusion Reactions: Family History of Problems w/ Anesthesia, Postoperative Nausea & Vomiting (PONV) Additional Past Anesthesia/Blood Transfusion Reaction / Comm: Mom allergic to a lot of anesthetics. Past Psychological History: No Psychological Hx Reported Smoking Status: Current every day smoker (Quit smoking on 2022) Past Alcohol Use History: Rare Additional Past Alcohol Use History / Comment(s): Has been smoking since 30 yrs old, 6-7 cigarettes per day. Past Drug Use History: None Reported - Past Family History Father Family Medical History: Cancer (Pancreatic cancer) Additional Family Medical History / Comment(s): Chronic back pain Mother Family Medical History: COPD, Hyperlipidemia, Hypertension Medications and Allergies Home Medications Medication Instructions Recorded Confirmed Type Calcium Carbonate [Calcium] 600 mg PO DAILY 07/13/19 01/23/23 History Atorvastatin [Lipitor] 40 mg PO DAILY 12/24/22 01/23/23 History Cholecalciferol (Vitamin D3) 75 mcg PO DAILY 12/24/22 01/23/23 History [Vitamin D3 (3000 Iu)] Budesonide-Formot 160-4.5 Mcg 2 puff INHALATION RT-BID #120 each 12/27/22 01/23/23 Rx [Symbicort 160-4.5 Mcg Inhaler] Furosemide [Lasix] 40 mg PO DAILY #30 tab 12/27/22 01/23/23 Rx Pantoprazole [Protonix] 40 mg PO AC-BRKFST #30 tab 12/27/22 01/23/23 Rx Potassium Chloride ER [K-Dur 20] 20 meq PO DAILY #30 tab 12/27/22 01/23/23 Rx Albuterol Inhaler [Ventolin Hfa 2 puff INHALATION RT-Q6H PRN 01/20/23 01/23/23 History Inhaler] Fluticasone/Umeclidin/Vilanter 1 puff INHALATION RT-DAILY 01/20/23 01/23/23 History [Trelegy Ellipta 200-62.5-25] Levothyroxine Sodium [Synthroid] 88 mcg PO DAILY 01/20/23 01/23/23 History Apixaban [Eliquis Starter Pack See Taper PO DIRECTED 01/23/23 01/23/23 History (for VTE)] Apixaban [Eliquis] 5 mg PO DIRECTED 01/23/23 01/23/23 History Allergies Allergy/AdvReac Type Severity Reaction Status Date / Time No Known Allergies Allergy Verified 01/23/23 12:30 Surgical - Exam Vital Signs Temp Pulse Resp BP Pulse Ox 98.1 F 84 16 169/75 95 01/23/23 11:54 01/23/23 11:54 01/23/23 11:54 01/23/23 11:54 01/23/23 11:54 - General well developed, well nourished, no distress, no pain - Eyes PERRL, normal ocular movement, no pale, no icteric - ENT normal pinna, normal nares, normal mucosa, no hearing loss, no congestion - Neck Palpable bilateral supraclavicular nodes and submandibular nodes to the left no bruits, trachea midline, no venous distension - Respiratory Lung sounds are essentially clear throughout, diminished to her right lower lobe with few scattered crackles. Respirations are symmetrical and nonlabored. Oxygen saturation are 95% on room air. - Cardiovascular Regular rhythm and rate. S1 and S2 present, negative for S3 or gallop. Positive systolic murmur 2/6 per day to her left sternal border. - Abdomen Abdomen is soft, nontender and nondistended. Active bowel sounds present in all 4 abdominal quadrants. No guarding or rigidity. - Genitourinary Deferred - Rectum Deferred - Integumentary Skin is warm and dry. No clubbing or cyanosis is present. 2+ edema to her left upper extremity, nontender to palpate. no rash, no growths, no abnormal pigmentation - Neurologic No focal deficits. normal coordination, normal sensation - Musculoskeletal Moves all 4 extremities with equal strength bilateral. normal gait, normal posture - Psychiatric oriented to time, oriented to person, oriented to place, speech is normal, memory intact Results - Labs 01/24/23 09:57 01/24/23 07:09 Abnormal Lab Results - Last 24 Hours (Table) 01/24/23 Range/Units 09:57 RBC 3.60 L (3.80-5.40) m/uL RDW 15.7 H (11.5-15.5) % Lymphocytes # 0.4 L (1.0-4.8) k/uL - Imaging Chest x-ray: report reviewed, image reviewed CT scan - chest: report reviewed, image reviewed Assessment and Plan Assessment: Recurrent right pleural effusion, status post thoracentesis 2, most recent thoracentesis was yesterday 01/24/2023 with 1000 mL of turbid-colored drainage Poorly differentiated metastatic non-small cell lung cancer Shortness of breath likely secondary to above, improved since thoracentesis completed yesterday 01/24/2023 Right IJ DVT, on Eliquis for anticoagulation Possible SVC syndrome related to mediastinal mass causing mass effect on the SVC Facial swelling and left upper extremity swelling, likely secondary to above SIADH, sodium level trending up and was 131 on 01/24/2023 Hyperlipidemia Hypothyroid COPD Moderate mitral valve regurgitation, moderate aortic valve regurgitation and moderate tricuspid valve regurgitation on recent transthoracic 2-D echocardiogram Recent history of chronic ongoing tobacco dependence, quit 2022 Plan: The patient was seen and examined at her bedside on the fifth floor medical oncology unit. Her chart and diagnostics were reviewed. The patient's family members are present at her bedside. Her case was discussed in detail with Dr. Rafa Maldonado from cardiothoracic surgery. The usual course for Pleurx catheter placement has been discussed with the patient and family, risks and benefits have been discussed. The importance of risk modification including smoking cessation has been discussed with the patient. Once the patient has been seen and evaluated by Dr. Rafa Maldonado more recommendations to follow. Medical management of her comorbidities per primary care service and other consultants. Continue to monitor daily chest x-rays. More recommendations follow based on patient's clinical course. Thank you Dr. Sosa for this consult and we look for to working with you in the care of this patient. I have personally seen and examined the patient, performed the documentation and the assessment and plan as written. 30 minutes spent on the visit . Wicho DURAN
[2023-01-25] MEDS: HYDROcodone/APAP 5-325MG 1 EACH TAB PO PRN (11:49)
--- NOTE | 2023-01-25 12:31 | P.PN ---
Subjective Progress Note Date: 01/25/23 Patient is 77-year-old female , presented to the hospital because of worsening shortness of breath. The patient has signs of SVC syndrome and the patient has also developed increased edema in her face neck, upper extremities and arms. She had recent diagnosis of non-small cell lung cancer. The diagnosis established by bronchoscopy and biopsy of the endobronchial lesions.. The patient underwent a bronchoscopy and there was some endobronchial abnormalities of the level of the main jessica and endobronchial biopsies were consistent with malignancy. The patient was diagnosed having non-small cell lung cancer. The patient also had a diagnostic thoracentesis with a total of 250 mL of fluid was aspirated from the right lung and the fluid cytology was negative for malignancy. She has history of hypothyroidism and smoking who is here for left upper extremity edema that continues to worsen. She was having shortness of breath and her PCP sent her to the ER where CT/PE on 12/24/22 was negative for PE but did reveal suspicious endobronchial lesion in the right mainstem bronchus. Biopsy was positive for non-small cell carcinoma, cannot exclude metastases from upper GI tract or breast. She underwent PET scan and MRI of the brain which revealed bilateral supraclavicular lymphadenopathy, right supraclavicular lesion noted to be compliant with soft tissue measuring 4 x 2.5 cm and another right supraclavicular lymph node measuring 1.3 cm with an SUV of 16.8. She is found to have a right upper lung mass extending into the chest wall and mediastinum as well as mediastinal lymphadenopathy and right axillary lymphadenopathy. She also had bilateral adrenal nodules. MRI of the brain was negative. She had pleural effusion and underwent thoracentesis on 01/15/23. Molecular studies positive for TP 53 and K-[place]on G1 to I, PD L1 23%. She developed left upper extremity swelling after IV access for the PET scan as well as right shoulder increased swelling. She had right face swelling and was referred to radiation oncology for concerns of SVC syndrome. Upper extremity ultrasound was obtained which revealed a right IJ DVT and she was started on outlook with a few days prior to this hospitalization. She was seen by Dr. Mercado in the clinic for follow-up on 01/20/23 and her testing results were discussed with her family, and plan was to proceed with palliative radiation to prevent progression of SVC syndrome as well as chemo immunotherapy with carbo, Taxol, and Keytruda. She was seen by Dr. Bai in [facility] on on 01/22/23 where she was having increased left upper extremity swelling and steroids were prescribed . Based on that, the patient came to the emergency department and the repeat CAT scan of the chest was done CT/PE was negative for PE and revealed large right-sided pleural effusion as well as right suprahilar mass with postobstructive volume loss and small left-sided pleural effusion. Stable mediastinal adenopathy encasing the SVC with luminal narrowing was seen. Noted the patient was taken into coagulation with Eliquis that was given to her, over diagnosed with IJ thrombosis. The anticoagulation was placed on hold for around 48 hours in preparation for thoracentesis. The patient is seen today 01/25/2023 in follow-up, regular medical floor. She is currently sitting up in bed. Awake and alert in no acute distress. Maintaining good O2 saturations in the 90s on room air. Afebrile. Hemodynamically stable. She did undergo a right-sided thoracentesis yesterday with 1 L of turbid yellow fluid removed. Today's chest x-ray reveals small bilateral pleural effusions with adjacent compressive atelectasis. Stable appearance of the right upper lobe mass. White count 11.6. Hemoglobin 10.9. Platelets 437. She is continued on Symbicort, albuterol, Decadron 4 mg IV every 6 hours. Anticoagulated with Eliquis. She is being considered for possible Pleurx catheter placement. Objective - Vital Signs Vital signs: Vital Signs Temp 98.5 F 01/25/23 11:28 Pulse 79 01/25/23 11:28 Resp 18 01/25/23 11:28 BP 136/77 01/25/23 11:28 Pulse Ox 92 L 01/25/23 11:28 FiO2 Intake & Output 01/24/23 01/25/23 01/25/23 18:59 06:59 18:59 Intake Total 850 240 Output Total 950 Balance -100 240 Intake: Oral 850 240 Output: Other 950 Other: # Voids 2 - Exam GENERAL EXAM: Alert, very pleasant 77-year-old female, on room air, comfortable in no apparent distress. HEAD: Normocephalic. EYES: Normal reaction of pupils, equal size. NOSE: Clear with pink turbinates. THROAT: No erythema or exudates. NECK: No masses, no JVD. CHEST: No chest wall deformity. LUNGS: Equal air entry with crackles in the bilateral bases. CVS: S1 and S2 normal with no audible murmur, regular rhythm. ABDOMEN: No hepatosplenomegaly, normal bowel sounds, no guarding or rigidity. SPINE: No scoliosis or deformity SKIN: No rashes CENTRAL NERVOUS SYSTEM: No focal deficits, tone is normal in all 4 extremities. EXTREMITIES: There is no peripheral edema. No clubbing, no cyanosis. Peripheral pulses are intact. - Labs CBC & Chem 7: 01/25/23 05:20 01/24/23 07:09 Labs: Abnormal Lab Results - Last 24 Hours (Table) 01/25/23 Range/Units 05:20 WBC 11.61 H (4.50-10.00) X 10*3/uL RBC 3.45 L (4.10-5.20) X 10*6/uL Hgb 10.9 L (12.0-15.0) d/dL Hct 33.1 L (37.2-46.3) % RDW 16.8 H (11.5-14.5) % Neutrophils # 10.52 H (1.80-7.70) X 10*3/uL Lymphocytes # 0.50 L (0.90-5.00) X 10*3/uL Eosinophils # 0 L (0.04-0.35) X 10*3/uL Assessment and Plan Assessment: Poorly differentiated metastatic non-small cell lung cancer, post bronchoscopy and endobronchial tumor in the jessica biopsies with the diagnosis established. PET scan from 01/16/2023 revealed findings compatible with right perihilar malignancy with metastatic disease to the mediastinum and bilateral lower neck lymph nodes. Additional possible sites of disease included bilateral adrenal glands right being more suspicious than left and possibly a single left axilla lymph node. 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 Number of minutes spent on the visit: 10.
--- NOTE | 2023-01-25 15:19 | P.PN ---
Subjective Progress Note Date: 01/25/23 Principal diagnosis: Lung cancer, dyspnea Patient reports she is feeling a bit better today. She had 1 L of fluid taken off of the right lung, and this improved her dyspnea. Still feels some mild facial swelling and the LUE is still swollen. Objective - Vital Signs Vital signs: Vital Signs Temp 98.5 F 01/25/23 11:28 Pulse 79 01/25/23 11:28 Resp 18 01/25/23 11:28 BP 136/77 01/25/23 11:28 Pulse Ox 92 L 01/25/23 11:28 FiO2 Intake & Output 01/24/23 01/25/23 01/25/23 18:59 06:59 18:59 Intake Total 850 240 Output Total 950 Balance -100 240 Intake: Oral 850 240 Output: Other 950 Other: # Voids 2 - Constitutional General appearance: Present: no acute distress - EENT Eyes: Present: EOMI, PERRLA - Neck Neck: Present: normal ROM - Respiratory Respiratory: bilateral: CTA - Cardiovascular Rhythm: regular - Gastrointestinal General gastrointestinal: Absent: distended, tenderness - Integumentary Integumentary: Absent: calor - Neurologic Neurologic: Present: CNII-XII intact - Musculoskeletal Musculoskeletal: Present: strength equal bilaterally - Psychiatric Psychiatric: Present: A&O x's 3, appropriate affect - Labs CBC & Chem 7: 01/25/23 05:20 01/24/23 07:09 Labs: Abnormal Lab Results - Last 24 Hours (Table) 01/25/23 Range/Units 05:20 WBC 11.61 H (4.50-10.00) X 10*3/uL RBC 3.45 L (4.10-5.20) X 10*6/uL Hgb 10.9 L (12.0-15.0) d/dL Hct 33.1 L (37.2-46.3) % RDW 16.8 H (11.5-14.5) % Neutrophils # 10.52 H (1.80-7.70) X 10*3/uL Lymphocytes # 0.50 L (0.90-5.00) X 10*3/uL Eosinophils # 0 L (0.04-0.35) X 10*3/uL Assessment and Plan Assessment: The patient is a 77-year-old female with a history of a newly diagnosed Stage IV poorly differentiated non-small cell lung cancer involving the right mainstem bronchus with extension into the upper lobe resulting in right upper lobe atelectasis. 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 She now presents with symptoms concerning for SVC syndrome. Plan: 1. Dyspnea - Likely due to both lung tumor as well as right effusion. Improved dyspnea after thoracentesis. Patient will likely have Pleurx placed during this hospital stay. 2. SVC Syndrome - Patient does have near SVC based on imaging; notable collateral circulation developing on chest-wall. Secondary to this she is starting today with a 5 fraction course of palliative radiotherapy. She has also been started on steroids for more immediate relief. Still has some difficulty with lying flat, but improved since thoracentesis. We will continue to monitor during her hospital course. Willl move on to chemo/immunotherapy after RT. Time with Patient: Less than 30
--- NOTE | 2023-01-25 16:14 | P.PN ---
Subjective Progress Note Date: 01/25/23 Principal diagnosis: Non-small cell lung cancer, SVC syndrome In follow-up today patient denies fevers, nausea, progressive chest pain or shortness of breath. She is starting radiation today. She is awaiting meeting with Cardiothoracic Surgery about possible pigtail. She had 1000 cc thoracentesis over the weekend. Patient has mild, generalized pain in the thoracic area. Objective - Vital Signs Vital signs: Vital Signs Temp 98.5 F 01/25/23 11:28 Pulse 80 01/25/23 15:37 Resp 18 01/25/23 11:28 BP 136/77 01/25/23 11:28 Pulse Ox 92 L 01/25/23 11:28 FiO2 Intake & Output 01/24/23 01/25/23 01/25/23 18:59 06:59 18:59 Intake Total 850 240 Output Total 950 Balance -100 240 Intake: Oral 850 240 Output: Other 950 Other: # Voids 2 - Constitutional General appearance: Present: average body habitus, cooperative, no acute distress - EENT Eyes: Present: anicteric sclerae, EOMI ENT: Present: hearing grossly normal - Respiratory Details: Respirations even and unlabored at rest - Cardiovascular Details: Skin warm and dry to the touch - Neurologic Neurologic: Present: CNII-XII intact - Musculoskeletal Musculoskeletal: Present: strength equal bilaterally - Psychiatric Psychiatric: Present: A&O x's 3, appropriate affect, intact judgment & insight - Labs CBC & Chem 7: 01/25/23 05:20 01/24/23 07:09 Labs: Abnormal Lab Results - Last 24 Hours (Table) 01/25/23 Range/Units 05:20 WBC 11.61 H (4.50-10.00) X 10*3/uL RBC 3.45 L (4.10-5.20) X 10*6/uL Hgb 10.9 L (12.0-15.0) d/dL Hct 33.1 L (37.2-46.3) % RDW 16.8 H (11.5-14.5) % Neutrophils # 10.52 H (1.80-7.70) X 10*3/uL Lymphocytes # 0.50 L (0.90-5.00) X 10*3/uL Eosinophils # 0 L (0.04-0.35) X 10*3/uL Assessment and Plan (1) Edema of left upper extremity Current Visit: Yes Status: Acute Priority: High Code(s): R60.0 - LOCALIZED EDEMA SNOMED Code(s): 061815900 (2) Pleural effusion, right Current Visit: Yes Status: Acute Priority: High Code(s): J90 - PLEURAL EFFUSION, NOT ELSEWHERE CLASSIFIED SNOMED Code(s): 66131066 (3) SVC syndrome Current Visit: Yes Status: Acute Priority: High Code(s): I87.1 - COMPRESSION OF VEIN SNOMED Code(s): 23296015 (4) Status post thoracentesis Current Visit: Yes Status: Acute Priority: High Code(s): Z98.890 - OTHER SPECIFIED POSTPROCEDURAL STATES SNOMED Code(s): 085016289 Plan: SVC syndrome -Patient has started radiation today. Plans for 5 days of treatment, Will fini at the end of this week -Mild/moderate symptoms, swelling, discomfort. Gentle range of motion en couraged, pain meds ordered. Pleural effusion -Status post 1000 cc thoracentesis -Pending Cardiothoracic surgeons review of the case- possible temporary pigtail catheter for draining pleural fluid? New diagnosis of non-small cell lung cancer -Has not yet started systemic treatment-Pending insurance authorization -Plan will be to start systemic therapy as soon as radiation is completed.
[2023-01-26] MEDS: DEXAMETHASONE SOD PHOSPHATE 4 MG/ML 1 ML VIAL IVP SCH ×3 (00:30→11:30)
[2023-01-26] MEDS: LEVOTHYROXINE 88 MCG TAB PO SCH (05:33)
[2023-01-26] MEDS: IPRATROPIUM 0.5 MG/2.5 ML NEBU INHALATION SCH ×3 (07:32→15:38)
[2023-01-26] MEDS: SYMBICORT 160-4.5 MCG INHALER INHALATION SCH (07:32)
[2023-01-26] MEDS: PANTOPRAZOLE 40 MG TABLET PO SCH (08:27)
[2023-01-26] MEDS: CALCIUM CARBONATE 500 MG CHEWABLE PO SCH (08:27)
[2023-01-26] MEDS: ATORVASTATIN 40 MG TAB PO SCH (08:27)
[2023-01-26] MEDS: APIXABAN 5 MG TAB PO SCH (08:27)
[2023-01-26] MEDS: POTASSIUM CHLORIDE ER 20 MEQ TAB.ER PO SCH (08:28)
[2023-01-26] MEDS: FUROSEMIDE 40 MG TAB PO SCH (08:29)
[2023-01-26] MEDS: CHOLECALCIFEROL 25 MCG (1000 IU) TABLET PO SCH (08:29)
[2023-01-26] MEDS: HYDROcodone/APAP 5-325MG 1 EACH TAB PO PRN (10:01)
--- NOTE | 2023-01-26 11:58 | P.PN ---
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 Patient's oncologist is Dr. Mercado and plan is for palliative radiation to prevent progression of SVC syndrome as well as chemo immunotherapy. She had developed increasing left upper extremity swelling and has been on steroids. Patient presented to the emergency center due to increasing and worsening shortness of breath. CAT scan of the chest was negative for PE and revealed large right-sided pleural effusion as well as right suprahilar mass with postobstructive volume loss and small left-sided pleural effusion. Stable mediastinal adenopathy encasing the SVC C with luminal narrowing.. Patient presented to the hospital due to shortness of breath. Patient subsequently [facility]. She has been seen by pulmonary medicine and underwent a right-sided thoracentesis with 1000 ML's of turbid colored fluid removed. Patient is also been seen by cardiothoracic surgery for evaluation of Pleurx catheter placement. Patient has been placed on IV Decadron which is been continued and she has been resumed on eliquis following thoracentesis. Consults are in place with oncology as well as radiation oncologist. REVIEW OF SYSTEMS: Constitutional: No documented fever, no chills, no night sweats. No weight change. No weakness, fatigue or lethargy. No daytime sleepiness. HEENT: No headache. No blurred vision or double vision, no loss of vision. No loss of Hearing, no ringing in the ears, no dizziness. No nasal drainage or congestion. No epistaxis. No sore throat. Lungs: positive for shortness of breath, no cough, minimal sputum production. No wheezing. Reports dyspnea with activity. Cardiovascular: No chest pain, no lower extremity edema. No palpitations. No paroxysmal nocturnal dyspnea. No orthopnea. No lightheadedness or dizziness. No syncopal episodes. Abdominal: Reports abdominal pain. No nausea, vomiting. No diarrhea. No constipation. No bloody or tarry stools reports loss of appetite. Genitourinary: No dysuria, increased frequency, urgency. No urinary retention. Musculoskeletal: No myalgias. No muscle weakness, no gait dysfunction, no frequent falls. No back pain. No neck pain. Integumentary: No wounds, no lesions. No rash or pruritus. No unusual bruising. No change in hair or nails. Neurologic: No aphasia. No facial droop. No change in mentation. No head injury. No headache. No paralysis. No paresthesia. Psychiatric: No depression. No anxiety. No mood swings. Endocrine: No abnormal blood sugars. No weight change. PHYSICAL EXAMINATION: General: 77-year-old female laying down in bed in no current distress. HEENT: Head is atraumatic, normocephalic, pupils were equal round reactive to light and recommendation, extraocular muscle movement were intact, sclera nonicteric, conjunctivae were pale, mucous membranes of the mouth are somewhat dry. Neck: Supple, no JVP, normal carotid upstroke bilaterally, no lymphadenopathy. Chest: Decreased breath sounds at the bases, few rhonchi, no expiratory wheezes, no chest wall tenderness, no intercostal retractions. Heart: First heart sound is normal, second heart sounds normal. There is systo lic ejection murmur 2/6 located in the left sternal border. Abdomen: Soft, nontender, nondistended, positive bowel sounds. Extremities: There is no edema no calf tenderness DP +2 bilaterally. Neurologic examination: Patient is awake alert and oriented x3 cranial nerves II-12 appear grossly intact, muscle power were 5 out of 5 in upper extremities and 5 out of 5 in bilateral lower extremities, deep tendon reflexes normal bilaterally. ASSESSMENT AND PLAN: 1. Metastatic non-small cell lung cancer with metastatic disease to the mediastinum and bilateral lower neck lymph nodes and additional possible sites of disease included bilateral adrenal glands right being more suspicious than left and possibly a single left axilla lymph node. Consults with pulmonary medicine appreciated. Consult with radiation oncology and oncologist. 2. SVC syndrome secondary to mediastinal mass causing mass effect. Continue patient on eliquis 5 mg twice daily, dexamethasone 4 mg IV push every 6 hours 3. Facial and upper extremity swelling secondary to SVC syndrome. 4. Right IJ DVT. Continue patient on eliquis. 5. Right-sided pleural effusion status post thoracentesis 01/24 with 1 L of IV fluid removed. 6. 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 Monitor sodium closely. 7. COPD. Continue patient on Symbicort 1604.5 g 2 puffs twice daily, Atrovent 4 times daily. 8. Chronic tobacco use and dependence. Smoking cessation and counseling an increased risk of CAD, CVA and malignancy per 9 . Hypothyroidism. Continue patient on levothyroxine 88 g once every day. 10. Mixed hyperlipidemia. Continue atorvastatin 40 mg daily. 11. Osteoporosis. Currently on calcium 1200 mg every day, vitamin D 3 2000 units once every day, and Prolia 60 mg subcutaneous once every 6 month bone de nsity scans up-to-date. 12. DVT prophylais. Continue patient on eliquis. 13. GI prophylaxis. Protonix 40 mg once every day. Patient is full code. Impression and plan of care have been directed as dictated by the signing physician. Seble Estes nurse practitioner acting as scribe for signing physician. Objective - Vital Signs Vital signs: Vital Signs Temp 98.5 F 01/25/23 11:28 Pulse 79 01/25/23 11:28 Resp 18 01/25/23 11:28 BP 136/77 01/25/23 11:28 Pulse Ox 92 L 01/25/23 11:28 FiO2 Intake & Output 01/24/23 01/25/23 01/25/23 18:59 06:59 18:59 Intake Total 850 240 Output Total 950 Balance -100 240 Intake: Oral 850 240 Output: Other 950 Other: # Voids 2 - Labs CBC & Chem 7: 01/25/23 05:20 01/24/23 07:09 Labs: Abnormal Lab Results - Last 24 Hours (Table) 01/25/23 Range/Units 05:20 WBC 11.61 H (4.50-10.00) X 10*3/uL RBC 3.45 L (4.10-5.20) X 10*6/uL Hgb 10.9 L (12.0-15.0) d/dL Hct 33.1 L (37.2-46.3) % RDW 16.8 H (11.5-14.5) % Neutrophils # 10.52 H (1.80-7.70) X 10*3/uL Lymphocytes # 0.50 L (0.90-5.00) X 10*3/uL Eosinophils # 0 L (0.04-0.35) X 10*3/uL
--- NOTE | 2023-01-26 12:24 | P.PN ---
Subjective Progress Note Date: 01/26/23 Patient is 77-year-old female , presented to the hospital because of worsening shortness of breath. The patient has signs of SVC syndrome and the patient has also developed increased edema in her face neck, upper extremities and arms. She had recent diagnosis of non-small cell lung cancer. The diagnosis established by bronchoscopy and biopsy of the endobronchial lesions.. The patient underwent a bronchoscopy and there was some endobronchial abnormalities of the level of the main jessica and endobronchial biopsies were consistent with malignancy. The patient was diagnosed having non-small cell lung cancer. The patient also had a diagnostic thoracentesis with a total of 250 mL of fluid was aspirated from the right lung and the fluid cytology was negative for malignancy. She has history of hypothyroidism and smoking who is here for left upper extremity edema that continues to worsen. She was having shortness of breath and her PCP sent her to the ER where CT/PE on 12/24/22 was negative for PE but did reveal suspicious endobronchial lesion in the right mainstem bronchus. Biopsy was positive for non-small cell carcinoma, cannot exclude metastases from upper GI tract or breast. She underwent PET scan and MRI of the brain which revealed bilateral supraclavicular lymphadenopathy, right supraclavicular lesion noted to be compliant with soft tissue measuring 4 x 2.5 cm and another right supraclavicular lymph node measuring 1.3 cm with an SUV of 16.8. She is found to have a right upper lung mass extending into the chest wall and mediastinum as well as mediastinal lymphadenopathy and right axillary lymphadenopathy. She also had bilateral adrenal nodules. MRI of the brain was negative. She had pleural effusion and underwent thoracentesis on 01/15/23. Molecular studies positive for TP 53 and K-landon G1 to I, PD L1 23%. She developed left upper extremity swelling after IV access for the PET scan as well as right shoulder increased swelling. She had right face swelling and was referred to radiation oncology for concerns of SVC syndrome. Upper extremity ultrasound was obtained which revealed a right IJ DVT and she was started on outlook with a few days prior to this hospitalization. She was seen by Dr. Mercado in the clinic for follow-up on 01/20/23 and her testing results were discussed with her family, and plan was to proceed with palliative radiation to prevent progression of SVC syndrome as well as chemo immunotherapy with carbo, Taxol, and Keytruda. She was seen by Dr. Bai in rate on on 01/22/23 where she was having increased left upper extremity swelling and steroids were prescribed . Based on that, the patient came to the emergency department and the repeat CAT scan of the chest was done CT/PE was negative for PE and revealed large right-sided pleural effusion as well as right suprahilar mass with postobstructive volume loss and small left-sided pleural effusion. Stable mediastinal adenopathy encasing the SVC with luminal narrowing was seen. Noted the patient was taken into coagulation with Eliquis that was given to her, over diagnosed with IJ thrombosis. The anticoagulation was placed on hold for around 48 hours in preparation for thoracentesis. The patient is seen today 01/25/2023 in follow-up, regular medical floor. She is currently sitting up in bed. Awake and alert in no acute distress. Maintaining good O2 saturations in the 90s on room air. Afebrile. Hemodynamically stable. She did undergo a right-sided thoracentesis yesterday with 1 L of turbid yellow fluid removed. Today's chest x-ray reveals small bilateral pleural effusions with adjacent compressive atelectasis. Stable appearance of the right upper lobe mass. White count 11.6. Hemoglobin 10.9. Platelets 437. She is continued on Symbicort, albuterol, Decadron 4 mg IV every 6 hours. Anticoagulated with Eliquis. She is being considered for possible Pleurx catheter placement. The patient is seen today 01/26/2023 in follow-up on the regular medical floor. She is sitting up having breakfast. Awake and alert in no acute distress. Denies any worsening shortness of breath, cough or congestion. Maintaining good O2 saturations in the 90s on room air. She's been afebrile. Hemodynamically stable. She did undergo her first round of palliative radiation therapy for her SVC syndrome yesterday. He is continued on Decadron, Symbicort, albuterol. Anticoagulated with Eliquis. Objective - Vital Signs Vital signs: Vital Signs Temp 98.2 F 01/26/23 07:02 Pulse 84 01/26/23 07:43 Resp 16 01/26/23 07:02 BP 157/71 01/26/23 07:02 Pulse Ox 97 01/26/23 07:32 FiO2 Intake & Output 01/25/23 01/26/23 01/26/23 18:59 06:59 18:59 Intake Total 480 Balance 480 Intake: Oral 480 Other: # Voids 1 - Exam GENERAL EXAM: Alert, 77-year-old female, on room air, comfortable in no apparent distress. HEAD: Normocephalic. EYES: Normal reaction of pupils, equal size. NOSE: Clear with pink turbinates. THROAT: No erythema or exudates. NECK: No masses, no JVD. CHEST: No chest wall deformity. LUNGS: Equal air entry with crackles in the bilateral bases. CVS: S1 and S2 normal with no audible murmur, regular rhythm. ABDOMEN: No hepatosplenomegaly, normal bowel sounds, no guarding or rigidity. SPINE: No scoliosis or deformity SKIN: No rashes CENTRAL NERVOUS SYSTEM: No focal deficits, tone is normal in all 4 extremities. EXTREMITIES: There is no peripheral edema. No clubbing, no cyanosis. Heidy pheral pulses are intact. - Labs CBC & Chem 7: 01/25/23 05:20 01/24/23 07:09 Assessment and Plan Assessment: Poorly differentiated metastatic non-small cell lung cancer, post bronchoscopy and endobronchial tumor in the jessica biopsies with the diagnosis established. PET scan from 01/16/2023 revealed findings compatible with right perihilar malignancy with metastatic disease to the mediastinum and bilateral lower neck lymph nodes. Additional possible sites of disease included bilateral adrenal glands right being more suspicious than left and possibly a single left axilla lymph node. 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 Number of minutes spent on the visit: 10.
[2023-01-26 12:36] VITALS: BP 168/74; RESP 18; TEMP 98.3
--- NOTE | 2023-01-26 14:09 | P.DS ---
Providers Date of admission: 01/23/23 15:57 Expected date of discharge: 01/26/23 Attending physician: Nan James Consults: 01/23/23 15:13 Consult Physician Urgent Consulting Provider: Truman Bai Consult Reason/Comments: SVC syndrome Do you want consulting provider notified?: Yes 01/23/23 15:15 Consult Physician Urgent Consulting Provider: Lauren Ott Consult Reason/Comments: Right pleural effusion Do you want consulting provider notified?: Yes 01/23/23 15:26 Consult Physician Urgent Consulting Provider: Ramirez Mercado Consult Reason/Comments: Lung cancer, SVC syndrome Do you want consulting provider notified?: Yes 01/25/23 08:00 Consult Physician Routine Consulting Provider: Rafa Maldonado Consult Reason/Comments: ? 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 Patient's oncologist is Dr. Mercado and plan is for palliative radiation to prevent progression of SVC syndrome as well as chemo immunotherapy. She had developed increasing left upper extremity swelling and has been on steroids. Patient presented to the emergency center due to increasing and worsening shortness of breath. CAT scan of the chest was negative for PE and revealed large right-sided pleural effusion as well as right suprahilar mass with postobstructive volume loss and small left-sided pleural effusion. Stable mediastinal adenopathy encasing the SVC C with luminal narrowing.. Patient presented to the hospital due to shortness of breath. Patient subsequently was admitted to the [facility] floor. She has been seen by pulmonary medicine and underwent a right-sided thoracentesis with 1000 ML's of turbid colored fluid removed. Patient is also been seen by cardiothoracic surgery for evaluation of Pleurx catheter placement. Patient has been placed on IV Decadron which is been continued and she has been resumed on eliquis following thoracentesis. Consults are in place with oncology as well as radiation oncologist. 01/26: Patient has been seen by radiation oncology with plan to start 5 fraction course of palliative radiotherapy with plan to start chemo/immunotherapy after radiation therapy. Patient is also been continued on steroids. Patient remains afebrile, heart rate in 70s and 80s, blood pressure 157/71, pulse ox 93% on room air. Repeat blood work reveals WBC 11.6, hemoglobin 10.9, platelet count 437. Patient is anxious to go home today. Patient will be discharged in stable condition. DISCHARGE DIAGNOSES: 1. Metastatic non-small cell lung cancer with metastatic disease to the mediastinum and bilateral lower neck lymph nodes and additional possible sites of disease included bilateral adrenal glands right being more suspicious than left and possibly a single left axilla lymph node. 2. SVC syndrome secondary to mediastinal mass causing mass effect. 3. Facial and upper extremity swelling secondary to SVC syndrome. 4. Right IJ DVT. 5. Right-sided pleural effusion status post thoracentesis 01/24 with 1 L of IV fluid removed. 6. 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 7. COPD. 8. Chronic tobacco use and dependence. 9 . Hypothyroidism. 10. Mixed hyperlipidemia. 11. Osteoporosis. Discharge plan: Home Greater than 35 minutes was utilized and coordinating patient's discharge. Impression and plan of care have been directed as dictated by the signing physician. Seble Estes nurse practitioner acting as scribe for signing physician. Patient Condition at Discharge: Stable Plan - Discharge Summary Discharge Rx Participant: Yes New Discharge Prescriptions: New dexAMETHasone ORAL [Hexadrol] 4 mg PO BID #25 tablet Continue Calcium Carbonate [Calcium] 600 mg PO DAILY Atorvastatin [Lipitor] 40 mg PO DAILY Furosemide [Lasix] 40 mg PO DAILY #30 tab Budesonide-Formot 160-4.5 Mcg [Symbicort 160-4.5 Mcg Inhaler] 2 puff INHALATION RT-BID #120 each Apixaban [Eliquis Starter Pack (for VTE)] See Taper PO DIRECTED Apixaban [Eliquis] 5 mg PO DIRECTED Cholecalciferol (Vitamin D3) [Vitamin D3 (3000 Iu)] 75 mcg PO DAILY Potassium Chloride ER [K-Dur 20] 20 meq PO DAILY #30 tab Pantoprazole [Protonix] 40 mg PO AC-BRKFST #30 tab Albuterol Inhaler [Ventolin Hfa Inhaler] 2 puff INHALATION RT-Q6H PRN PRN Reason: Shortness Of Breath Levothyroxine Sodium [Synthroid] 88 mcg PO DAILY Fluticasone/Umeclidin/Vilanter [Trelegy Ellipta 200-62.5-25] 1 puff INHALATION RT-DAILY Discharge Medication List Calcium Carbonate [Calcium] 600 mg PO DAILY 07/13/19 [History] Atorvastatin [Lipitor] 40 mg PO DAILY 12/24/22 [History] Cholecalciferol (Vitamin D3) [Vitamin D3 (3000 Iu)] 75 mcg PO DAILY 12/24/22 [History] Budesonide-Formot 160-4.5 Mcg [Symbicort 160-4.5 Mcg Inhaler] 2 puff INHALATION RT-BID #120 each 12/27/22 [Rx] Furosemide [Lasix] 40 mg PO DAILY #30 tab 12/27/22 [Rx] Pantoprazole [Protonix] 40 mg PO AC-BRKFST #30 tab 12/27/22 [Rx] Potassium Chloride ER [K-Dur 20] 20 meq PO DAILY #30 tab 12/27/22 [Rx] Albuterol Inhaler [Ventolin Hfa Inhaler] 2 puff INHALATION RT-Q6H PRN 01/20/23 [History] Fluticasone/Umeclidin/Vilanter [Trelegy Ellipta 200-62.5-25] 1 puff INHALATION RT-DAILY 01/20/23 [History] Levothyroxine Sodium [Synthroid] 88 mcg PO DAILY 01/20/23 [History] Apixaban [Eliquis Starter Pack (for VTE)] See Taper PO DIRECTED 01/23/23 [History] Apixaban [Eliquis] 5 mg PO DIRECTED 01/23/23 [History] dexAMETHasone ORAL [Hexadrol] 4 mg PO BID #25 tablet 01/26/23 [Rx] Follow up Appointment(s)/Referral(s): Ramirez Mercado MD [STAFF PHYSICIAN] - 02/11/23 11:30 am Nan James MD [Primary Care Provider] - 1-2 days (HAS SCHEDULED APPOINTMENT WEDNESDAY) Discharge Disposition: HOME SELF-CARE
[2023-01-26 15:51] VITALS: PULSE 84
--- NOTE | 2023-01-26 17:48 | P.PN ---
Subjective Progress Note Date: 01/26/23 Principal diagnosis: Non-small cell lung cancer, SVC syndrome In follow-up today patient denies fevers, nausea, she is tolerating oral intake. She had her 2nd radiation today. Cardiothoracic Surgery recommends holding off on a pleurex drain for now. No other physical c/o. Objective - Vital Signs Vital signs: Vital Signs Temp 98.3 F 01/26/23 11:31 Pulse 84 01/26/23 15:51 Resp 18 01/26/23 11:31 BP 168/74 01/26/23 11:31 Pulse Ox 93 L 01/26/23 11:31 FiO2 Intake & Output 01/25/23 01/26/23 01/26/23 18:59 06:59 18:59 Intake Total 480 Balance 480 Intake: Oral 480 Other: # Voids 1 - Constitutional General appearance: Present: average body habitus, cooperative, no acute distress - EENT Eyes: Present: anicteric sclerae, EOMI ENT: Present: hearing grossly normal - Respiratory Details: resp even and unlabored at rest - Cardiovascular Details: Skin warm and dry to the touch - Integumentary Integumentary: Present: normal - Neurologic Neurologic: Present: CNII-XII intact - Musculoskeletal Musculoskeletal: Present: strength equal bilaterally - Psychiatric Psychiatric: Present: A&O x's 3, appropriate affect, intact judgment & insight - Labs CBC & Chem 7: 01/25/23 05:20 01/24/23 07:09 Assessment and Plan (1) Edema of left upper extremity Status: Acute Priority: High Code(s): R60.0 - LOCALIZED EDEMA SNOMED Code(s): 960929208 (2) Pleural effusion, right Status: Acute Priority: High Code(s): J90 - PLEURAL EFFUSION, NOT ELSEWHERE CLASSIFIED SNOMED Code(s): 97621333 (3) SVC syndrome Status: Acute Priority: High Code(s): I87.1 - COMPRESSION OF VEIN SNOMED Code(s): 90082728 (4) Status post thoracentesis Status: Acute Priority: High Code(s): Z98.890 - OTHER SPECIFIED POSTPROCEDURAL STATES SNOMED Code(s): 437685231 Plan: SVC syndrome -Radiation continues today, complete on Wednesday -Mild/moderate Left upper extremity symptoms, swelling, discomfort. Gentle range of motion encouraged, pain meds ordered. -Continue steroids on DC for symptoms Pleural effusion -Status post 1000 cc thoracentesis -CTS not recommending thoracic drain at this time -Patient's current respiratory status is stable New diagnosis of non-small cell lung cancer -Has not yet started systemic treatment-Pending insurance authorization. -Plan will be to start systemic therapy as soon as radiation is completed. Nursing will contact patient to schedule chemotherapy -Poor peripheral access. We will have to schedule patient for PICC line insertion outpatient
[2023-01-28] MEDS ORDERED: APIXABAN 5 MG TAB PO SCH (09:00)
== END 2023-01-26 16:00 | disposition home or self-care (01) | DRG 180 ==
LOC: EC 11:53 → 5NMEDONC 15:57
PROVIDERS: ADMIT Internal Medicine; ATTEND Internal Medicine
PROC: 0W993ZZ Drainage of Right Pleural Cavity, Percutaneous Approach (ICD-10-PCS; principal; 2023-01-24)
PROC: DB021ZZ Beam Radiation of Lung using Photons 1 - 10 MeV (ICD-10-PCS; 2023-01-25)
DX: C34.11 Malignant neoplasm of upper lobe, right bronchus or lung (principal); J96.01 Acute respiratory failure with hypoxia; I82.C11 Acute embolism and thrombosis of right internal jugular vein; E22.2 Syndrome of inappropriate secretion of antidiuretic hormone; C79.70 Secondary malignant neoplasm of unspecified adrenal gland; C77.0 Secondary and unspecified malignant neoplasm of lymph nodes of head, face and neck; I87.1 Compression of vein; J91.0 Malignant pleural effusion; J98.11 Atelectasis; E27.8 Other specified disorders of adrenal gland; E03.9 Hypothyroidism, unspecified; I08.3 Combined rheumatic disorders of mitral, aortic and tricuspid valves; J43.9 Emphysema, unspecified; E78.2 Mixed hyperlipidemia; R22.0 Localized swelling, mass and lump, head; M81.0 Age-related osteoporosis without current pathological fracture; T38.0X6A Underdosing of glucocorticoids and synthetic analogues, initial encounter; Z77.090 Contact with and (suspected) exposure to asbestos; Z91.148 Patient's other noncompliance with medication regimen for other reason; Z87.891 Personal history of nicotine dependence; Z51.0 Encounter for antineoplastic radiation therapy; Z79.899 Other long term (current) drug therapy; Z79.51 Long term (current) use of inhaled steroids; Z79.01 Long term (current) use of anticoagulants; Z79.890 Hormone replacement therapy; Z71.6 Tobacco abuse counseling; Z82.49 Family history of ischemic heart disease and other diseases of the circulatory system; Z82.5 Family history of asthma and other chronic lower respiratory diseases; Z80.0 Family history of malignant neoplasm of digestive organs
CPT/HCPCS: 36415; 71045; 71275; 80053; 83880; 84484; 85025; 85610; 85730; 93005; 94640; 94760; 99285

== ENCOUNTER 2023-02-26 09:18 | Day surgery (SDC) | payer MEDICARE ==
[2023-02-26 09:50] VITALS: BP 123/74; PULSE 80; RESP 16; TEMP 97.1
[2023-02-26 10:21] LABS: African American GFR (CKD) >90 (>60 ml/min/1.73 sqM); Anion Gap 6 mmol/L; Blood Urea Nitrogen 12 mg/dL (7-17); Calcium 7.7 mg/dL (8.4-10.2); Carbon Dioxide 25 mmol/L (22-30); Chloride 92 mmol/L (98-107); Glucose 93 mg/dL (74-99); Non-African American GFR(CKD) >90 (>60 ml/min/1.73 sqM); Potassium 3.5 mmol/L (3.5-5.1); Sodium 123 mmol/L (137-145)
[2023-02-26] MEDS ORDERED: LIDOCAINE 1% INJ 10MG/ML (5 ML VIAL-PF) SQ ONE (10:56)
--- NOTE | 2023-02-26 11:10 | P.OP ---
Date of Procedure: 02/26/23 Description of Procedure: Date of Procedure: Preoperative Diagnosis: Lung cancer, need for chemotherapy Postoperative Diagnosis: Same. Procedure(s) Performed: Ultrasound-guided cannulation left basilic vein. Insertion of peripherally inserted central catheter under fluoroscopic guidance. Anesthesia: local 1% lidocaine poncho Surgeon: Bre Estimated Blood Loss (ml): 5 IV fluids (ml): 0 Urine output (ml): 0 Pathology: none sent Condition: stable Disposition: no change Indications for Procedure: Patient is a [77-year-old female who was diagnosed with lung cancer and had a Pleurx catheter placed. She also at that time had a PICC line placed in her right upper extremity for chemotherapy however at her last appointment unfortunately the PICC line itself became dislodged was removed. She presents today for replacement. Her previous images and ultrasounds have been reviewed. There is no evidence of left upper extremity DVT, she has a patent basilic vein on imaging currently therefore the plan is to place a left upper extremity PICC line due to the recent access of the right upper extremity. 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 Risks and benefits were discussed. She seemingly understood and was willing to proceed. Description of Procedure: Patient was brought to the special procedure suite. The left upper extremity sterilely prepped and draped in usual manner. Ultrasound was utilized to identify the basilic vein which was normally compressible free of visible thrombus. Permenant image was stored. 1% Xylocaine was utilized for local anesthesia tissues overlying the vein. Through this anesthetized area and with the aid of ultrasound a micropuncture needle was utilized to cannulate the vein. Once cannulated, Softip guidewire was advanced into the vein. The needle was withdrawn and a micropuncture sheath and dilator advanced over the guidewire. The guidewire was withdrawn and exchanged for the PICC guidewire and measured 41 cm to the cavoatrial junction. The catheter was cut to size and advanced into the cavoatrial junction without resistance. The sheath was peeled away. Blood was easily withdrawn through the catheter and the catheter was then flushed with heparinized saline solution and secured to the skin. Patient tolerated procedure well and was returned to their room in satisfactory and stable condition.
--- NOTE | 2023-02-27 09:18 | IR ---
EXAMINATION TYPE: IR cvc insert >=5 years DATE OF EXAM: 02/26/2023 COMPARISON: 02/17/2023 HISTORY: Antibiotics, 41 cm left basilic, fluoroscopy time 0.9 minutes Fluoroscopy was provided to the referring clinician.
== END 2023-02-26 12:37 | disposition home or self-care (01) ==
LOC: CATHCVL 09:18
PROVIDERS: ATTEND Surgery
DX: C34.90 Malignant neoplasm of unspecified part of unspecified bronchus or lung (principal); I87.2 Venous insufficiency (chronic) (peripheral)
CPT/HCPCS: 36573; 80048; C1751; C1769; J2001

== ENCOUNTER 2023-03-16 19:25 | Inpatient (IN) | payer MEDICARE ==
[2023-03-16] MEDS ORDERED: FUROSEMIDE 10 MG/ML 4 ML VIAL IV STA (20:44)
--- NOTE | 2023-03-16 20:50 | ED ---
General Adult HPI - General Chief complaint: Extremity Problem,Nontraumatic Stated complaint: JOHN,Arm Swelling Time Seen by Provider: 03/16/23 20:33 Source: patient, family, RN notes reviewed, old records reviewed Mode of arrival: ambulatory Limitations: no limitations - History of Present Illness Initial comments: 77-year-old female presents to the emergency room alert and oriented 4 with family complaining of bilateral lower extremity swelling and left arm swelling at PICC line site for past week. Patient denies any chest pain, has occasional difficulty in breathing and occasional cough. Does have a history of lung cancer started treatment with chemotherapy 3 weeks ago through left PICC line. Last chemo was Wednesday which was her second dose. Due to the swelling in her legs her visiting nurse did call her primary care doctor Dr. James who prescribed Lasix yesterday which she has not started yet. -: days(s) (6) Location: left, right, upper extremity (Bilateral lower extremities, left upper extremity swelling), lower extremity Severity scale (1-10): 0 Consistency: intermittent Associated Symptoms: cough - Related Data Home Medications Medication Instructions Recorded Confirmed Atorvastatin [Lipitor] 40 mg PO DAILY 12/24/22 02/25/23 Albuterol Inhaler [Ventolin Hfa 2 puff INHALATION DIRECTED PRN 01/20/23 02/25/23 Inhaler] Fluticasone/Umeclidin/Vilanter 1 puff INHALATION RT-DAILY 01/20/23 02/25/23 [Trelegy Ellipta 200-62.5-25] Levothyroxine Sodium [Synthroid] 88 mcg PO DAILY 01/20/23 02/26/23 Apixaban [Eliquis] 5 mg PO BID 01/23/23 02/25/23 Acetaminophen [Tylenol Arthritis] 1,300 mg PO DIRECTED PRN 02/12/23 02/25/23 Previous Rx's Medication Instructions Recorded Pantoprazole [Protonix] 40 mg PO AC-BRKFST #30 tab 12/27/22 Allergies Allergy/AdvReac Type Severity Reaction Status Date / Time No Known Allergies Allergy Verified 02/26/23 09:49 Review of Systems ROS Statement: Those systems with pertinent positive or pertinent negative responses have been documented in the HPI. ROS Other: All systems not noted in ROS Statement are negative. Past Medical History Past Medical History: Cancer, COPD, Deep Vein Thrombosis (DVT), GERD/Reflux, Hyperlipidemia, Thyroid Disorder Additional Past Medical History / Comment(s): finished medrol dose pack January 2023,Heart Murmur-mitral & aortic regurgitation., non-small cell lung cancer, SVC syndrome, emphysema. osteoporosis., DVT right IJ, constipation, states rash on abdomen. History of Any Multi-Drug Resistant Organisms: None Reported Past Surgical History: No Surgical Hx Reported Additional Past Surgical History / Comment(s): pleurx cath inserted 02-16-23,Colonoscopy, thoracentesis x2, back pain injections, picc - pulled out Past Anesthesia/Blood Transfusion Reactions: No Reported Reaction, Family History of Problems w/ Anesthesia Additional Past Anesthesia/Blood Transfusion Reaction / Comment(s): Mom allergic to a lot of anesthetics. Past Psychological History: No Psychological Hx Reported Smoking Status: Former smoker - Past Family History Father Family Medical History: Cancer Mother Family Medical History: COPD, Hyperlipidemia, Hypertension General Exam Limitations: no limitations General appearance: alert, in no apparent distress Head exam: Present: atraumatic Eye exam: Absent: scleral icterus, conjunctival injection, periorbital swelling ENT exam: Present: normal oropharynx, mucous membranes dry Neck exam: Present: full ROM. Absent: tenderness, meningismus Respiratory exam: Present: normal lung sounds bilaterally. Absent: respiratory distress, accessory muscle use Cardiovascular Exam: Present: regular rate GI/Abdominal exam: Present: soft. Absent: distended, tenderness, guarding, rebound, rigid Extremities exam: Present: pedal edema (2+ blle) Left Elbow exam: Present: full ROM, swelling, other (PICC line, edematous). Absent: tenderness, abrasion, ecchymosis, deformity Forearm Wrist exam: Present: full ROM Vascular: Present: normal capillary refill. Absent: vascular compromise Neurological exam: Present: alert, oriented X3 Psychiatric exam: Present: normal affect, normal mood Skin exam: Present: warm, dry, normal color. Absent: cyanosis, diaphoretic, petechiae, pallor Course Vital Signs 03/16/23 03/16/23 03/16/23 19:28 20:25 20:56 Temperature 98.1 F Pulse Rate 85 92 Respiratory 16 Rate Blood Pressure 130/77 145/79 O2 Sat by Pulse 98 93 L Oximetry 03/16/23 03/16/23 21:43 23:35 Temperature Pulse Rate 68 Respiratory 16 Rate Blood Pressure 159/83 O2 Sat by Pulse 95 100 Oximetry Medical Decision Making - Medical Decision Making Was pt. sent in by a medical professional or institution (, [facility], FILM SOUND COORDINATOR, urgent care, hospital, or [facility]...) When possible be specific @ -No Did you speak to anyone other than the patient for history (EMS, parent, family, police, friend...)? What history was obtained from this source @ -Family at bedside providing date of last chemotherapy, onset of bilateral lower extremity edema and swelling of left arm with weeping at picc site Did you review nursing and triage notes (agree or disagree)? Why? @ -I reviewed and agree with nursing and triage notes Were old charts reviewed (outside hosp., previous admission, EMS record, old EKG, old radiological studies, urgent care reports/EKG's, [facility] records)? Report findings @ -Yes previous labs Differential Diagnosis (chest pain, altered mental status, abdominal pain women, abdominal pain men, vaginal bleeding, weakness, fever, dyspnea, syncope, headache, dizziness, GI bleed, back pain, seizure, CVA, palpatations, mental health, musculoskeletal)? @ -Differential Dyspnea: Coronary syndrome, arrhythmia, tamponade, asthma, COPD, pulmonary embolism, pneumonia, pneumothorax, pulmonary effusion, anaphylaxis, diabetic ketoacidosis, flailed chest, pulmonary contusion, diaphragmatic rupture, anemia, neuromuscula r, this is not meant to be an all-inclusive list. EKG interpreted by me (3pts min.). @ -yes EKG interpreted by me shows sinus rhythm with a ventricular rate of 84, OR interval 0.138, QRS 0.90, QTC 0.403 X-rays interpreted by me (1pt min.). @ -yes Chest x-ray interpreted by me shows bilateral pleural effusions with right mid lung opacity. Trachea is midline. CT interpreted by me (1pt min.). @ -None done U/S interpreted by me (1pt. min.). @ -None done What testing was considered but not performed or refused? (CT, X-rays, U/S, labs)? Why? @ -None What meds were considered but not given or refused? Why? @ -None Did you discuss the management of the patient with other professionals (professionals i.e. , PA, FILM SOUND COORDINATOR, lab, RT, psych nurse, director of social media marketing, distillery supervisor, teacher, chief strategy officer, case filler)? Give summary @ -No Was smoking cessation discussed for >3mins.? @ -No Was critical care preformed (if so, how long)? @ -No Were there social determinants of health that impacted care today? How? (Homelessness, low income, unemployed, alcoholism, drug addiction, transportation, low edu. Level, literacy, decrease access to med. care, retirement, rehab)? @ -No Was there de-escalation of care discussed even if they declined (Discuss DNR or withdrawal of care, Hospice)? DNR status @ -No What co-morbidities impacted this encounter? (DM, HTN, Smoking, COPD, CAD, Cancer, CVA, ARF, Chemo, Hep., AIDS, mental health diagnosis, sleep apnea, mor bid obesity)? @ -Patient has history of non-small cell lung cancer with Pleurx catheter, COPD, DVT, GERD, osteoporosis Was patient admitted / discharged? Hospital course, mention meds given and route, prescriptions, significant lab abnormalities, going to OR and other pertinent info. @ -Admitted 77-year-old female presents to the emergency room alert and oriented 4 with family complaining of bilateral lower extremity swelling and left arm swelling at PICC line site for past week. Patient denies any chest pain, has occasional difficulty in breathing and occasional cough. Does have a history of lung cancer started treatment with chemotherapy 3 weeks ago through left PICC line. Last chemo was Wednesday which was her second dose. Due to the swelling in her legs her visiting nurse did call her primary care doctor Dr. James who presc ribed Lasix yesterday which she has not started yet. Patient denies any chest pain. States has been sleeping in a chair at home. Chest x-ray interpreted by me shows bilateral pleural effusions with right mid lung opacity. Trachea is midline. Radiologist interpretation small bilateral pleural effusions with associated atelectasis. Right Pleurx catheter in place. Left picc identified. Similar r ight suprahilar opacities corresponding to no mass or volume loss Hemoglobin 9.3 down from 10.3 in December 2022. Sodium 123 down from 130 in March 2023 BNP is 501, albumin 3 total protein 5.5. EKG interpreted by me shows sinus rhythm with a ventricular rate of 84, OR interval 0.138, QRS 0.90, QTC 0.403 Patient was given IV Lasix, oxygen saturation improved to 100% on 2 L. Vital signs are stable. Patient afebrile. Ultrasound left upper arm shows no evidence of DVT. Patient is on eliquis I did speak with patient's doctor, Dr. James who was agreeable to observation for hyponatremia, dyspnea with history of stage IV lung cancer, bilateral lower extremity edema, left arm swelling with PICC. Oncology on consult Patient and family are agreeable to this plan of care. Case discussed with Dr. Nava Undiagnosed new problem with uncertain prognosis? @ -No Drug Therapy requiring intensive monitoring for toxicity (Heparin, Nitro, Insulin, Cardizem)? @ -No Were any procedures done? @ -No Diagnosis/symptom? @ -Hyponatremia, dyspnea stage IV lung cancer, bilateral lower extremity edema, edema left arm Acute, or Chronic, or Acute on Chronic? @ -Acute Uncomplicated (without systemic symptoms) or Complicated (systemic symptoms)? @ -Complicated Side effects of treatment? @ -No Exacerbation, Progression, or Severe Exacerbation? @ -No Poses a threat to life or bodily function? How? (Chest pain, USA, PA, pneumonia, PE, COPD, DKA, ARF, appy, cholecystitis, CVA, Diverticulitis, Homicidal, Suicidal, threat to staff... and all critical care pts) @ -No - Lab Data Result diagrams: 03/16/23 20:54 03/16/23 20:54 Lab Results 03/16/23 03/16/23 03/16/23 Range/Units 20:54 20:54 20:54 WBC 5.0 (3.8-10.6) k/uL RBC 2.76 L (3.80-5.40) m/uL Hgb 9.3 L D (11.4-16.0) gm/dL Hct 27.0 L (34.0-46.0) % MCV 98.0 (80.0-100.0) fL MCH 33.8 (25.0-35.0) pg MCHC 34.5 (31.0-37.0) g/dL RDW 16.7 H (11.5-15.5) % Plt Count 255 (150-450) k/uL MPV 7.4 Neutrophils % 88 % Lymphocytes % 8 % Monocytes % 1 % Eosinophils % 3 % Basophils % 0 % Neutrophils # 4.4 (1.3-7.7) k/uL Lymphocytes # 0.4 L (1.0-4.8) k/uL Monocytes # 0.0 (0-1.0) k/uL Eosinophils # 0.1 (0-0.7) k/uL Basophils # 0.0 (0-0.2) k/uL Anisocytosis Slight Macrocytosis Slight PT 10.4 (9.0-12.0) sec INR 1.0 (<1.2) APTT 29.2 (22.0-30.0) sec Sodium 123 L (137-145) mmol/L Potassium 3.7 (3.5-5.1) mmol/L Chloride 91 L (98-107) mmol/L Carbon Dioxide 26 (22-30) mmol/L Anion Gap 6 mmol/L BUN 16 (7-17) mg/dL Creatinine 0.52 (0.52-1.04) mg/dL Est GFR (CKD-EPI)AfAm >90 (>60 ml/min/1.73 sqM) Est GFR (CKD-EPI)NonAf >90 (>60 ml/min/1.73 sqM) Glucose 97 (74-99) mg/dL Calcium 8.0 L (8.4-10.2) mg/dL Magnesium 1.7 (1.6-2.3) mg/dL Total Bilirubin 0.4 (0.2-1.3) mg/dL AST 27 (14-36) U/L ALT 19 (4-34) U/L Alkaline Phosphatase 82 (38-126) U/L Troponin I (0.000-0.034) ng/mL NT-Pro-B Natriuret Pep 501 pg/mL Total Protein 5.5 L (6.3-8.2) g/dL Albumin 3.0 L (3.5-5.0) g/dL 03/16/23 Range/Units 20:54 WBC (3.8-10.6) k/uL RBC (3.80-5.40) m/uL Hgb (11.4-16.0) gm/dL Hct (34.0-46.0) % MCV (80.0-100.0) fL MCH (25.0-35.0) pg MCHC (31.0-37.0) g/dL RDW (11.5-15.5) % Plt Count (150-450) k/uL MPV Neutrophils % % Lymphocytes % % Monocytes % % Eosinophils % % Basophils % % Neutrophils # (1.3-7.7) k/uL Lymphocytes # (1.0-4.8) k/uL Monocytes # (0-1.0) k/uL Eosinophils # (0-0.7) k/uL Basophils # (0-0.2) k/uL Anisocytosis Macrocytosis PT (9.0-12.0) sec INR (<1.2) APTT (22.0-30.0) sec Sodium (137-145) mmol/L Potassium (3.5-5.1) mmol/L Chloride (98-107) mmol/L Carbon Dioxide (22-30) mmol/L Anion Gap mmol/L BUN (7-17) mg/dL Creatinine (0.52-1.04) mg/dL Est GFR (CKD-EPI)AfAm (>60 ml/min/1.73 sqM) Est GFR (CKD-EPI)NonAf (>60 ml/min/1.73 sqM) Glucose (74-99) mg/dL Calcium (8.4-10.2) mg/dL Magnesium (1.6-2.3) mg/dL Total Bilirubin (0.2-1.3) mg/dL AST (14-36) U/L ALT (4-34) U/L Alkaline Phosphatase (38-126) U/L Troponin I <0.012 (0.000-0.034) ng/mL NT-Pro-B Natriuret Pep pg/mL Total Protein (6.3-8.2) g/dL Albumin (3.5-5.0) g/dL Disposition Clinical Impression: Hyponatremia, Edema of both lower legs, Lung cancer, Swelling of left upper extremity Disposition: ADMITTED IP TO THIS [facility] Decision Date: 03/16/23 Decision Time: 22:11
[2023-03-16 21:05] LABS: Anisocytosis Slight; Basophils % (A) 0 %; Eosinophils # (A) 0.1 k/uL (0-0.7); Eosinophils % (A) 3 %; Lymphocytes # (A) 0.4 k/uL (1.0-4.8); Lymphocytes % (A) 8 %; MCH 33.8 pg (25.0-35.0); MCHC 34.5 g/dL (31.0-37.0); Macrocytosis Slight; Mean Platelet Volume 7.4; Monocytes % (A) 1 %; Neutrophils # (A) 4.4 k/uL (1.3-7.7); Neutrophils % (A) 88 %; Platelet Count 255 k/uL (150-450); RBC 2.76 m/uL (3.80-5.40); RDW 16.7 % (11.5-15.5)
[2023-03-16 21:12] LABS: HGB 9.3 gm/dL (11.4-16.0)
[2023-03-16 21:15] LABS: Partial Thromboplastin Time 29.2 sec (22.0-30.0); Prothrombin Time 10.4 sec (9.0-12.0)
--- NOTE | 2023-03-16 21:19 | XR ---
EXAMINATION TYPE: XR chest 2V DATE OF EXAM: 03/16/2023 9:09 PM COMPARISON: Chest radiographs from 02/16/2023 TECHNIQUE: XR chest 2V Frontal and lateral views of the chest. CLINICAL INDICATION:Female, 77 years old with history of difficulty breathing; FINDINGS: Lungs/Pleura: Small bilateral unchanged extensive medial right upper lobe and right hilar opacity. Pl eural effusions associated atelectasis. No pneumothorax. Pulmonary vascularity: Unremarkable. Heart/mediastinum: Cardiomediastinal silhouette is enlarged and stable. Musculoskeletal: No acute osseous pathology. Degenerative changes of the thoracic spine. Other findings: None Lines/Tubes: Right Pleurx catheter identified with tip overlying the mid right lung. Left-sided PICC identified with tip at the superior vena cava. IMPRESSION: 1. Small bilateral pleural effusions with associated atelectasis. Right Pleurx catheter in place. 2. Left PICC identified. 3. Similar right suprahilar/hilar opacity corresponding to known mass with volume loss.
[2023-03-16 21:20] LABS: ALT 19 U/L (4-34); AST 27 U/L (14-36); African American GFR (CKD) >90 (>60 ml/min/1.73 sqM); Alkaline Phosphatase 82 U/L (38-126); Anion Gap 6 mmol/L; Blood Urea Nitrogen 16 mg/dL (7-17); Carbon Dioxide 26 mmol/L (22-30); Chloride 91 mmol/L (98-107); Glucose 97 mg/dL (74-99); Magnesium 1.7 mg/dL (1.6-2.3); Non-African American GFR(CKD) >90 (>60 ml/min/1.73 sqM); Potassium 3.7 mmol/L (3.5-5.1); Sodium 123 mmol/L (137-145); Total Bilirubin 0.4 mg/dL (0.2-1.3); Total Protein 5.5 g/dL (6.3-8.2)
[2023-03-16 21:28] LABS: NT-Pro-B-Type Natriuretic Pept 501 pg/mL
[2023-03-16] MEDS ORDERED: NALOXONE 0.4 MG/ML 1 ML VIAL IV PRN (22:18)
[2023-03-16 22:36] LABS: Uric Acid 2.9 mg/dL (3.7-7.4)
[2023-03-16 23:34] LABS: T4, Free (Free Thyroxine) 1.21 ng/dL (0.78-2.19)
--- NOTE | 2023-03-17 00:16 | US ---
EXAM: US Duplex Left Upper Extremity Veins CLINICAL HISTORY: Swelling TECHNIQUE: Real-time duplex ultrasound scan of the left upper extremity veins integrating B-mode two-dimensional vascular structure, Doppler spectral analysis, color flow Doppler imaging and compression. COMPARISON: Left upper extremity venous duplex 01/20/2023 FINDINGS: Deep veins: Incidental PICC noted in the left subclavian vein. No DVT in the left internal jugular, subclavian, axillary, or brachial veins. The veins demonstrate normal color flow, are normally compressible, with normal phasic flow and/or augmentation response. Echogenic material in the noncompressible right internal jugular vein appears slightly more prominent from the previous examination but persists. The right subclavian vein is patent. Superficial veins: Unremarkable. No thrombus in the visualized basilic and cephalic veins. Soft tissues: Subcutaneous edema noted in the distal brachial region near the antecubital fossa. No loculated fluid collection. IMPRESSION: No evidence for deep vein thrombosis involving the left upper extremity.
[2023-03-17] MEDS: PANTOPRAZOLE 40 MG TABLET PO SCH (06:36)
[2023-03-17] MEDS: LEVOTHYROXINE 88 MCG TAB PO SCH (06:36)
[2023-03-17] MEDS: SYMBICORT 80-4.5 MCG INHALER INHALATION SCH ×2 (07:59→20:29)
[2023-03-17] MEDS: IPRATROPIUM 0.5 MG/2.5 ML NEBU INHALATION SCH ×4 (07:59→20:29)
[2023-03-17] MEDS ORDERED: ACETAMINOPHEN TAB 325 MG TAB PO PRN (08:00)
[2023-03-17] MEDS: APIXABAN 5 MG TAB PO SCH ×2 (08:46→20:04)
[2023-03-17] MEDS: ATORVASTATIN 40 MG TAB PO SCH (08:46)
[2023-03-17] MEDS: POTASSIUM CHLORIDE ER 20 MEQ TAB.ER PO SCH ×2 (15:36→20:04)
[2023-03-17] MEDS: FUROSEMIDE 10 MG/ML 4 ML VIAL IV SCH ×2 (15:36→20:03)
--- NOTE | 2023-03-17 17:27 | P.CONS ---
History of Present Illness - Reason for Consult Consult date: 03/17/23 hx lung cancer Requesting physician: Juan Luis Morataya - Chief Complaint BLE and LUE edema - History of Present Illness Ms. Navarrete is a 77-year-old woman with past medical history significant for cigarette smoking, hypothyroidism, and stage IVB non-small cell lung carcinoma. She initially noted having intermittent dry cough followed by progressive dyspnea over the past month. CT PE on 12/24/2022 noted no evidence of pulmonary embolism, but did note atelectasis of the right upper lobe and a portion of the right medial lobe. In addition, there were bilateral pleural effusions with moderate right pleural effusion and small left pleural effusion. She underwent bronchoscopy on 12/26/2022, which revealed suspicious endobronchial lesion in the right mainstem bronchus. Biopsy of this lesion revealed non-small cell carcinoma, which was positive for CK7 and negative for CK20, Napsin A, p40, TTF- 1. Brain MRI noted no evidence of intracranial metastases. PET/CT on 12/2022 noted FDG avid bilateral supraclavicular lymphadenopathy, left axillary lymphadenopathy, and bilateral adrenal gland nodules concerning for potential metastatic disease. Given the swelling in the right shoulder and right side of the face with large soft tissue mass in the right supraclavicular region as well as the right upper lung invading into the mediastinum, patient was sent to r/o SVC syndrome. Ultrasound was consistent with right internal jugular vein DVT and was started on therapeutic Eliquis twice daily. She was admitted for SVC syndrome on 01/23/2023 and was started on Decadron and palliative radiation therapy, which she completed 5 fractions with significant improvement in SVC syndrome. She initiated cycle 1 of carboplatin/paclitaxel/pembrolizumab on 02/19/2023, and is s/p cycle 2 on 03/12/23. Patient presented to the emergency room with complaints of bilateral lower extremity edema and left upper extremity edema. Patient reports she was started on Lasix by her PCP for the lower extremity edema but as yet started the medication. Patient states left upper extremity swelling began over the last 1 week. PICC line present in LUE. Patient denies any erythema or purulent discharge around PICC line site. Denies fever and chills. Denies shortness of breath and chest pain. Doppler left upper extremity negative for DVT. chest x- ray revealed small bilateral effusions with associated atelectasis. Right Pleurx catheter in place. Similar right suprahilar/hilar opacity corresponding to known mass with volume loss. CBC revealed the BC 5.0, hemoglobin 9.3, platelets 255,000. Creatinine 0.52. Serum protein 5.5 and albumin 3.0. Patient afebrile. SPO2 93% room air. Review of Systems 10 point ROS is negative except as stated in the HPI Past Medical History Past Medical History: Cancer, COPD, Deep Vein Thrombosis (DVT), GERD/Reflux, Hyperlipidemia, Thyroid Disorder Additional Past Medical History / Comment(s): finished medrol dose pack January 2023,Heart Murmur-mitral & aortic regurgitation., non-small cell lung cancer, SVC syndrome, emphysema. osteoporosis., DVT right IJ, constipation, states rash on abdomen. History of Any Multi-Drug Resistant Organisms: None Reported Past Surgical History: No Surgical Hx Reported Additional Past Surgical History / Comment(s): pleurx cath inserted 02-16-23,C olonoscopy, thoracentesis x2, back pain injections, picc - pulled out Past Anesthesia/Blood Transfusion Reactions: No Reported Reaction, Family History of Problems w/ Anesthesia Additional Past Anesthesia/Blood Transfusion Reaction / Comm: Mom allergic to a lot of anesthetics. Past Psychological History: No Psychological Hx Reported Smoking Status: Former smoker Past Alcohol Use History: Rare Additional Past Alcohol Use History / Comment(s): Quit smoking November 2022., started smoking at 30 yrs old, hx of 7 cigarettes/day Past Drug Use History: None Reported - Past Family History Father Family Medical History: Cancer Mother Family Medical History: COPD, Hyperlipidemia, Hypertension Medications and Allergies Home Medications Medication Instructions Recorded Confirmed Type Atorvastatin [Lipitor] 40 mg PO DAILY 12/24/22 03/17/23 History Pantoprazole [Protonix] 40 mg PO AC-BRKFST #30 tab 12/27/22 03/17/23 Rx Albuterol Inhaler [Ventolin Hfa 2 puff INHALATION RT-QID PRN 01/20/23 03/17/23 History Inhaler] Fluticasone/Umeclidin/Vilanter 1 puff INHALATION RT-DAILY 01/20/23 03/17/23 History [Trelegy Ellipta 200-62.5-25] Levothyroxine Sodium [Synthroid] 88 mcg PO DAILY 01/20/23 03/17/23 History Apixaban [Eliquis] 5 mg PO BID 01/23/23 03/17/23 History Acetaminophen [Tylenol Arthritis] 1,300 mg PO Q8H PRN 02/12/23 03/17/23 History HYDROcodone/APAP 5-325MG [[place] 1 tab PO Q12H PRN 03/17/23 03/17/23 History 5-325] Allergies Allergy/AdvReac Type Severity Reaction Status Date / Time No Known Allergies Allergy Verified 03/17/23 08:11 Physical Exam Vitals: Vital Signs Temp Pulse Pulse Resp BP BP Pulse Ox 03/17/23 15:50 88 03/17/23 15:40 84 03/17/23 13:30 98.2 F 92 16 143/86 93 L 03/17/23 11:28 82 03/17/23 11:19 76 03/17/23 10:00 82 18 150/77 94 L 03/17/23 09:00 62 18 162/81 99 03/17/23 08:11 84 03/17/23 08:00 82 18 162/103 100 03/17/23 06:39 88 16 154/83 99 03/17/23 05:14 89 16 146/76 99 03/17/23 03:55 75 16 170/91 99 03/17/23 02:00 98.1 F 84 18 147/80 98 03/16/23 23:35 68 16 159/83 100 03/16/23 21:43 95 03/16/23 20:56 145/79 03/16/23 20:25 92 93 L 03/16/23 19:28 98.1 F 85 16 130/77 98 Intake and Output 03/17/23 03/17/23 03/17/23 06:59 14:59 22:59 Intake Total 150 Balance 150 Intake: Oral 150 Other: Weight 54.431 kg - Constitutional General appearance: average body habitus, no acute distress - EENT Eyes: anicteric sclerae, EOMI ENT: hearing grossly normal - Neck Neck: no lymphadenopathy - Respiratory Respiratory: bilateral: CTA - Cardiovascular Rhythm: regular Heart sounds: normal: S1, S2 Abnormal Heart Sounds: no systolic murmur, no diastolic murmur, no rub, no S3 Gallop, no S4 Gallop, no click, no other leg Peripheral Edema: left: Other (LUE edema noted, picc line noted. No erythema, induration or purulent discharge noted ), bilateral: Trace - Gastrointestinal General gastrointestinal: soft, no tenderness - Integumentary Integumentary: no cyanotic, no jaundiced - Neurologic grossly intact - Musculoskeletal Musculoskeletal: strength equal bilaterally - Psychiatric Psychiatric: A&O x's 3, appropriate affect, intact judgment & insight Results CBC & Chem 7: 03/16/23 20:54 03/16/23 20:54 Labs: Abnormal Lab Results - Last 24 Hours (Table) 03/16/23 03/16/23 03/16/23 Range/Units 20:54 20:54 22:20 RBC 2.76 L (3.80-5.40) m/uL Hgb 9.3 L D (11.4-16.0) gm/dL Hct 27.0 L (34.0-46.0) % RDW 16.7 H (11.5-15.5) % Lymphocytes # 0.4 L (1.0-4.8) k/uL Sodium 123 L (137-145) mmol/L Chloride 91 L (98-107) mmol/L Uric Acid 2.9 L (3.7-7.4) mg/dL Calcium 8.0 L (8.4-10.2) mg/dL Total Protein 5.5 L (6.3-8.2) g/dL Albumin 3.0 L (3.5-5.0) g/dL TSH 11.700 H (0.465-4.680) mIU/L Chest x-ray: report reviewed Venous US: report reviewed Assessment and Plan (1) Edema of both lower legs Current Visit: Yes Status: Acute Priority: Medium Code(s): R60.0 - LOCALIZED EDEMA SNOMED Code(s): 302137331 (2) Lung cancer Current Visit: Yes Status: Acute Priority: High Code(s): C34.90 - MALIGNANT NEOPLASM OF UNSP PART OF UNSP BRONCHUS OR LUNG SNOMED Code(s): 521325699 (3) Swelling of left upper extremity Current Visit: Yes Status: Acute Priority: Medium Code(s): M79.89 - OTHER SPECIFIED SOFT TISSUE DISORDERS SNOMED Code(s): 781828113 Plan: Stage IVB non-small cell lung carcinoma: -Completed 5 fractions palliative RT to soft tissue mass in the right supraclavicular region -S/p completion cycle 2 of carboplatin/paclitaxel/pembrolizumab on 03/12/23. -Counts stable. Will f/u in clinic prior to proceeding to cycle 3 for reeval uation of symptoms LUE edema: -Patient states left upper extremity swelling began over the last 1 week, however patient did have some minor edema of extremity prior. Of note PICC line present in LUE. No signs of acute infection of PICC site. Pt afebrile. -LUE doppler negative for DVT -Less likely, but will r/o nephrotic syndrome. Serum protein (5.5) and albumin (3.0) low. Urine protein/microalbumin ordered. Serum creatinine normal, 0.52. -Do not believe extremity edema is r/t treatment. Patient does have poor vascular access, and if it's not thought that LUE edema is likely related to PICC line placement than would recommend keeping PICC in place, as removal would delay treatment. Will continue to monitor Dr. lopezests: I have seen and examined pt, performed H&P, developed impression an d plan of care. Discussed with dictator. Agree with documentation, dictated as a scribe.
--- NOTE | 2023-03-17 20:13 | P.HPIM ---
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, history of mitral regurgitation and aortic regurgitation, patient was receiving diagnosed of having none small cell lung cancer stage IV be after she was found to have a significant right mainstem bronchus biopsy during bronchoscopy showed evidence of non-small cell lung cancer patient was seen and evaluated by hematology oncology of [facility] 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 for which she did receive 5 relation therapy and she did well after that, patient developed to have a significant pleural effusion for which a Pleurx catheter was placed and, patient underwent MRI of the brain did not show evidence of metastatic disease and she was started on her treatment on 02/21/2023 with carboplatin/Pacli taxel/Pembrolizumab also she did have a second cycle on 03/12/2023, patient contacted my office about 2 days ago stating that she had increased swelling in both lower extremity is in the left upper extremity where she has her PICC line placed for chemotherapy and immunotherapy, and the patient was started on Lasix 40 mg once every day along with potassiums accommodation however she restarted the medication instead her daughter brought her to the ER for evaluation she was found to have a significant anasarca in both lower extremities as well as left upper extremity underwent venous Doppler of the left upper extremity that did not show evidence of acute DVT, chest x-ray showed evidence of bilateral pleural effusion with compressive atelectasis, Pleurx catheter in place. Patient was admitted to the hospital she was started on Lasix 40 mg push every 12 hours, she was seen in consultation by hematology oncology as well we'll continue to monitor the patient very closely increase her protein intake, and with the patient is more stable she can be discharged home. REVIEW OF SYSTEMS: Constitutional: No documented fever, no chills, no night sweats. No weight change. No weakness, fatigue or lethargy. No daytime sleepiness. HEENT: No headache. No blurred vision or double vision, no loss of vision. No loss of Hearing, no ringing in the ears, no dizziness. No nasal drainage or congestion. No epistaxis. No sore throat. Lungs: positive for shortness of breath, no cough, minimal sputum production. No wheezing. Reports dyspnea with activity. Cardiovascular: No chest pain, no lower extremity edema. No palpitations. No paroxysmal nocturnal dyspnea. No orthopnea. No lightheadedness or dizziness. No syncopal episodes. Abdominal: Reports no abdominal pain. No nausea, vomiting. No diarrhea. No constipation. No bloody or tarry stools reports loss of appetite. Genitourinary: No dysuria, increased frequency, urgency. No urinary retention. Musculoskeletal: No myalgias. No muscle weakness, no gait dysfunction, no frequent falls. No back pain. No neck pain. Integumentary: No wounds, no lesions. No rash or pruritus. No unusual bruising. No change in hair or nails. Neurologic: No aphasia. No facial droop. No change in mentation. No head injury. No headache. No paralysis. No paresthesia. Psychiatric: No depression. No anxiety. No mood swings. Endocrine: No abnormal blood sugars. No weight change. PAST MEDICAL HISTORY: Mixed hyperlipidemia. Hypothyroidism. Osteoporosis. Mitral regurgitation and aortic regurgitation. Osteoarthritis. 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 PAST SURGICAL HISTORY: Colonoscopy both 2019. Bronchoscopy with Biopsy 11/2022 Pleurx catheter placement. Left arm PICC line SOCIAL HISTORY: Patient smokes half a pack every day she drinks socially, she denies any marijuana use, she denies tremors, she lives with , she has a very good family support. FAMILY HISTORY: father at age of 86 from pancreatic cancer mother at age 94 of congestive heart failure patient has one brother and 5 daughters no major medical problems. PHYSICAL EXAMINATION: General: 77-year-old female laying down in bed in no current distress. HEENT: Head is atraumatic, normocephalic, pupils were equal round reactive to light and recommendation, extraocular muscle movement were intact, sclera nonict gaurang, conjunctivae were pale, mucous membranes of the mouth are somewhat dry. Neck: Supple, no JVP, normal carotid upstroke bilaterally, no lymphadenopathy. Chest: Decreased breath sounds at the bases, few rhonchi, no expiratory wheezes, no chest wall tenderness, no intercostal retractions. Heart: First heart sound is normal, second heart sounds normal. There is systolic ejection murmur 2/6 located in the left sternal border. Abdomen: Soft, nontender, nondistended, positive bowel sounds. Extremities: There is +3 edema no calf tenderness DP +2 bilaterally. Neurologic examination: Patient is awake alert and oriented x3 cranial nerves II-12 appear grossly intact, muscle power were 5 out of 5 in upper extremities and 5 out of 5 in bilateral lower extremities, deep tendon reflexes normal bilaterally. ASSESSMENT AND PLAN: 1. Anasarca with bilateral lower extremity edema. we will start Furosemide 40 mg IVP Q12 hours and we ken increase protein intake, we will continue to monitor labs and current condition . 2. Stage IV NSCLCA. post 2nd cycle of Carboplatin/Paclitaxel/Pembrolizumab on 03/12/2023. Hematolog-Oncology will be following. 3. 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 4. Bilateral pleural effusion. we will continue with Furosemide and we will continue to monitor. 5. Hypothyroidism. Continue patient on levothyroxine 88 g once every day. 6. Mixed hyperlipidemia. Continue atorvastatin 40 mg daily. 7. Osteoporosis. Currently on calcium 1200 mg every day, vitamin D 3 2000 units once every day, and Prolia 60 mg subcutaneous once every 6 month bone density scans up-to-date. 8. Right Internal Jugular Thrombus. we will continue with Eliquis 5 mg po bid 8. DVT prophylais. On Eliquis 5 mg po bid. 9. GI prophylaxis. Protonix 40 mg once every day. 10. Admit to inpatient. Estimate a length of stay 2 midnights. 11. Patient is full code. Past Medical History Past Medical History: Cancer, COPD, Deep Vein Thrombosis (DVT), GERD/Reflux, Hyperlipidemia, Thyroid Disorder Additional Past Medical History / Comment(s): finished medrol dose pack January 2023,Heart Murmur-mitral & aortic regurgitation., non-small cell lung cancer, SVC syndrome, emphysema. osteoporosis., DVT right IJ, constipation, states rash on abdomen. History of Any Multi-Drug Resistant Organisms: None Reported Past Surgical History: No Surgical Hx Reported Additional Past Surgical History / Comment(s): pleurx cath inserted 02-16-23,Colonoscopy, thoracentesis x2, back pain injections, picc - pulled out Past Anesthesia/Blood Transfusion Reactions: No Reported Reaction, Family History of Problems w/ Anesthesia Additional Past Anesthesia/Blood Transfusion Reaction / Comment(s): Mom allergic to a lot of anesthetics. Past Psychological History: No Psychological Hx Reported Smoking Status: Former smoker Past Alcohol Use History: Rare Additional Past Alcohol Use History / Comment(s): Quit smoking November 2022., started smoking at 30 yrs old, hx of 7 cigarettes/day Past Drug Use History: None Reported - Past Family History Father Family Medical History: Cancer Mother Family Medical History: COPD, Hyperlipidemia, Hypertension Medications and Allergies Home Medications Medication Instructions Recorded Confirmed Type Atorvastatin [Lipitor] 40 mg PO DAILY 12/24/22 03/17/23 History Pantoprazole [Protonix] 40 mg PO AC-BRKFST #30 tab 12/27/22 03/17/23 Rx Albuterol Inhaler [Ventolin Hfa 2 puff INHALATION RT-QID PRN 01/20/23 03/17/23 History Inhaler] Fluticasone/Umeclidin/Vilanter 1 puff INHALATION RT-DAILY 01/20/23 03/17/23 History [Trelegy Ellipta 200-62.5-25] Levothyroxine Sodium [Synthroid] 88 mcg PO DAILY 01/20/23 03/17/23 History Apixaban [Eliquis] 5 mg PO BID 01/23/23 03/17/23 History Acetaminophen [Tylenol Arthritis] 1,300 mg PO Q8H PRN 02/12/23 03/17/23 History HYDROcodone/APAP 5-325MG [[place] 1 tab PO Q12H PRN 03/17/23 03/17/23 History 5-325] Allergies Allergy/AdvReac Type Severity Reaction Status Date / Time No Known Allergies Allergy Verified 03/17/23 08:11 Physical Exam Vitals: Vital Signs Temp Pulse Pulse Resp BP BP Pulse Ox 03/17/23 15:50 88 03/17/23 15:40 84 03/17/23 13:30 98.2 F 92 16 143/86 93 L 03/17/23 11:28 82 03/17/23 11:19 76 03/17/23 10:00 82 18 150/77 94 L 03/17/23 09:00 62 18 162/81 99 03/17/23 08:11 84 03/17/23 08:00 82 18 162/103 100 03/17/23 06:39 88 16 154/83 99 03/17/23 05:14 89 16 146/76 99 03/17/23 03:55 75 16 170/91 99 03/17/23 02:00 98.1 F 84 18 147/80 98 03/16/23 23:35 68 16 159/83 100 03/16/23 21:43 95 03/16/23 20:56 145/79 03/16/23 20:25 92 93 L Intake and Output 03/17/23 03/17/23 03/17/23 06:59 14:59 22:59 Intake Total 150 Balance 150 Intake: Oral 150 Other: # Voids 1 Weight 54.431 kg Results CBC & Chem 7: 03/16/23 20:54 03/16/23 20:54 Labs: Abnormal Lab Results - Last 24 Hours (Table) 03/16/23 03/16/23 03/16/23 Range/Units 20:54 20:54 22:20 RBC 2.76 L (3.80-5.40) m/uL Hgb 9.3 L D (11.4-16.0) gm/dL Hct 27.0 L (34.0-46.0) % RDW 16.7 H (11.5-15.5) % Lymphocytes # 0.4 L (1.0-4.8) k/uL Sodium 123 L (137-145) mmol/L Chloride 91 L (98-107) mmol/L Uric Acid 2.9 L (3.7-7.4) mg/dL Calcium 8.0 L (8.4-10.2) mg/dL Total Protein 5.5 L (6.3-8.2) g/dL Albumin 3.0 L (3.5-5.0) g/dL TSH 11.700 H (0.465-4.680) mIU/L Thrombosis Risk Factor Assmnt - Choose All That Apply Any of the Below Risk Factors Present?: Yes Each Factor Represents 1 point: Abnormal pulmonary function (COPD) Other Risk Factors: Yes Each Risk Factor Represents 2 Points: Malignancy Thrombosis Risk Factor Assessment Total Risk Factor Score: 3 Thrombosis Risk Factor Assessment Level: Moderate Risk
[2023-03-17 20:41] LABS: Appearance,Urine Clear (Clear); Bilirubin,Urine Negative (Negative); Blood,Urine Negative (Negative); Color,Urine Colorless; Glucose,Urine (UA) Negative (Negative); Ketones,Urine Negative (Negative); Leukocyte Esterase,Urine Negative (Negative); Nitrite,Urine Negative (Negative); PH, Urine 6.5 (5.0-8.0); Protein,Urine Negative (Negative); Specific Gravity,Urine 1.005 (1.001-1.035); Urobilinogen,Urine <2.0 mg/dL (<2.0)
[2023-03-17 20:55] LABS: Creatinine,Urine Random 6.7 mg/dL; Protein/Creatinine Ratio,Urine 1.642
[2023-03-18 04:40] LABS: Microalbumin Creatinine Ratio <140 mg/g Cr (0-30); Urine Creatinine 8.6 mg/dL (28.0-217.0)
[2023-03-18] MEDS: SYMBICORT 80-4.5 MCG INHALER INHALATION SCH ×2 (07:41→20:16)
[2023-03-18] MEDS: IPRATROPIUM 0.5 MG/2.5 ML NEBU INHALATION SCH ×4 (07:41→20:16)
[2023-03-18] MEDS: PANTOPRAZOLE 40 MG TABLET PO SCH (08:08)
[2023-03-18] MEDS: POTASSIUM CHLORIDE ER 20 MEQ TAB.ER PO SCH ×2 (08:08→20:22)
[2023-03-18] MEDS: FUROSEMIDE 10 MG/ML 4 ML VIAL IV SCH ×2 (08:08→16:55)
[2023-03-18] MEDS: APIXABAN 5 MG TAB PO SCH ×2 (08:08→20:22)
[2023-03-18] MEDS: ATORVASTATIN 40 MG TAB PO SCH (08:08)
[2023-03-18] MEDS: LEVOTHYROXINE 88 MCG TAB PO SCH ×2 (08:17→11:32)
[2023-03-18 09:12] LABS: BUN/Creat Ratio 20.75 Ratio (12.00-20.00); Blood Urea Nitrogen 8.3 mg/dL (9.0-27.0); Calcium 8.2 mg/dL (8.7-10.3); Carbon Dioxide 28.4 mmol/L (21.6-31.8); Chloride 90 mmol/L (96-109); Glucose 86 mg/dL (70-110); HCT 25.8 % (37.2-46.3); HGB 8.8 d/dL (12.0-15.0); MCH 33.2 pg (27.0-32.0); MCHC 34.1 d/dL (32.0-37.0); MCV 97.4 FL (80.0-97.0); Mean Platelet Volume 9.8 FL (9.5-12.2); NRBC Per 100 WBC 0 X 10*3/uL (0.00-0.01); Platelet Count 221 X 10*3/uL (140-440); Potassium 3.6 mmol/L (3.5-5.5); RBC 2.65 X 10*6/uL (4.10-5.20); RDW 17.2 % (11.5-14.5); Sodium 127 mmol/L (135-145); WBC 3.61 X 10*3/uL (4.50-10.00)
--- NOTE | 2023-03-18 09:23 | P.PN ---
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 for which she did receive 5 relation therapy and she did well after that, patient developed to have a significant pleural effusion for which a Pleurx catheter was placed and, patient underwent MRI of the brain did not show evidence of metastatic disease and she was started on her treatment on 02/21/2023 with carboplatin/Paclitaxel/Pembrolizumab also she did have a second cycle on 03/12/2023, patient contacted my office about 2 days ago stating that she had increased swelling in both lower extremity is in the left upper extremity where she has her PICC line placed for chemotherapy and immunotherapy, and the patient was started on Lasix 40 mg once every day along with potassiums accommodation however she restarted the medication instead her daughter brought her to the ER for evaluation she was found to have a significant anasarca in both lower extremities as well as left upper extremity underwent venous Doppler of the left upper extremity that did not show evidence of acute DVT, chest x-ray showed evidence of bilateral pleural effusion with compressive atelectasis, Pleurx catheter in place. Patient was admitted to the hospital she was started on Lasix 40 mg push every 12 hours, she was seen in consultation by hematology oncology as well we'll continue to monitor the patient very closely increase her protein intake, and with the patient is more stable she can be discharged home. 03/18: Patient has been seen by oncology. Patient was started on IV Lasix every 12 hours but did not receive on evening dose as it was held by her nurse so she wouldn't have to get up and urinate through the night. Dosing changed to 9 AM and 4 PM. The blood work reveals improvement of her sodium to 127, potassium is 3.6. Creatinine 0.4. WBC 3.6, hemoglobin 8.8, platelet count 221. REVIEW OF SYSTEMS: Constitutional: No documented fever, no chills, no night sweats. No weight change. No weakness, fatigue or lethargy. No daytime sleepiness. HEENT: No headache. No blurred vision or double vision, no loss of vision. No loss of Hearing, no ringing in the ears, no dizziness. No nasal drainage or congestion. No epistaxis. No sore throat. Lungs: positive for shortness of breath, no cough, minimal sputum production. No wheezing. Reports dyspnea with activity. Cardiovascular: No chest pain, + lower extremity edema. No palpitations. No paroxysmal nocturnal dyspnea. No orthopnea. No lightheadedness or dizziness. No syncopal episodes. Abdominal: Reports no abdominal pain. No nausea, vomiting. No diarrhea. No constipation. No bloody or tarry stools reports loss of appetite. Genitourinary: No dysuria, increased frequency, urgency. No urinary retention. Musculoskeletal: No myalgias. No muscle weakness, no gait dysfunction, no frequent falls. No back pain. No neck pain. Integumentary: No wounds, no lesions. No rash or pruritus. No unusual bruising. No change in hair or nails. Neurologic: No aphasia. No facial droop. No change in mentation. No head injury. No headache. No paralysis. No paresthesia. Psychiatric: No depression. No anxiety. No mood swings. Endocrine: No abnormal blood sugars. No weight change. PHYSICAL EXAMINATION: General: 77-year-old female laying down in bed in no current distress. HEENT: Head is atraumatic, normocephalic, pupils were equal round reactive to light and recommendation, extraocular muscle movement were intact, sclera nonicteric, conjunctivae were pale, mucous membranes of the mouth are somewhat dry. Neck: Supple, no JVP, normal carotid upstroke bilaterally, no lymphadenopathy. Chest: Decreased breath sounds at the bases, few rhonchi, no expiratory wheezes, no chest wall tenderness, no intercostal retractions. Heart: First heart sound is normal, second heart sounds normal. There is sy stolic ejection murmur 2/6 located in the left sternal border. Abdomen: Soft, nontender, nondistended, positive bowel sounds. Extremities: There is +3 edema no calf tenderness DP +2 bilaterally. Neurologic examination: Patient is awake alert and oriented x3 cranial nerves II-12 appear grossly intact, muscle power were 5 out of 5 in upper extremities and 5 out of 5 in bilateral lower extremities, deep tendon reflexes normal bilaterally. ASSESSMENT AND PLAN: 1. Anasarca with bilateral lower extremity edema. we will start Furosemide 40 mg IVP Q12 hours and we ken increase protein intake, we will continue to monitor labs and current condition . 2. Stage IV NSCLCA. post 2nd cycle of Carboplatin/Paclitaxel/Pembrolizumab on 03/12/2023. Hematolog-Oncology consult appreciated. 3. 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 4. Bilateral pleural effusion. we will continue with Furosemide and we will continue to monitor. 5. Hypothyroidism. Continue patient on levothyroxine 88 g once every day. 6. Mixed hyperlipidemia. Continue atorvastatin 40 mg daily. 7. Osteoporosis. Currently on calcium 1200 mg every day, vitamin D 3 2000 units once every day, and Prolia 60 mg subcutaneous once every 6 month bone density scans up-to-date. 8. Right Internal Jugular Thrombus. we will continue with Eliquis 5 mg po bid 8. DVT prophylais. On Eliquis 5 mg po bid. 9. GI prophylaxis. Protonix 40 mg once every day. 10. Admit to inpatient. Estimate a length of stay 2 midnights. Impression and plan of care have been directed as dictated by the signing physician. Seble Estes nurse practitioner acting as scribe for signing physician. Objective - Vital Signs Vital signs: Vital Signs Temp 97.9 F 03/18/23 07:18 Pulse 72 03/18/23 07:55 Resp 18 03/18/23 07:18 BP 139/82 03/18/23 07:18 Pulse Ox 94 L 03/18/23 07:45 FiO2 Intake & Output 03/17/23 03/18/23 03/18/23 18:59 06:59 18:59 Intake Total 500 Output Total 600 Balance -100 Weight 54.431 kg Intake: Oral 500 Output: Urine 600 Other: Voiding Method Bedside Commode # Voids 1 1 1 - Labs CBC & Chem 7: 03/18/23 04:59 03/18/23 04:59 Labs: Abnormal Lab Results - Last 24 Hours (Table) 03/17/23 Range/Units 19:40 U Creat (Microalbumin) 8.6 L (28.0-217.0) mg/dL Microalb/Creat Ratio <140 H (0-30) mg/g Cr
--- NOTE | 2023-03-18 16:51 | P.PN ---
Subjective Progress Note Date: 03/18/23 Principal diagnosis: extremity edema At today's visit patient is resting comfortably in bed, family at bedside. Patient denies shortness of breath and pain. Patient is afebrile. SPO2 94% on 2 L. Objective - Vital Signs Vital signs: Vital Signs Temp 98.5 F 03/18/23 12:29 Pulse 88 03/18/23 16:03 Resp 16 03/18/23 12:29 BP 150/80 03/18/23 12:29 Pulse Ox 92 L 03/18/23 12:31 FiO2 Intake & Output 03/17/23 03/18/23 03/18/23 18:59 06:59 18:59 Intake Total 500 Output Total 600 500 Balance -100 -500 Weight 54.431 kg Intake: Oral 500 Output: Urine 600 500 Other: Voiding Method Bedside Commode # Voids 1 1 1 - Constitutional General appearance: Present: average body habitus, no acute distress - EENT Eyes: Present: anicteric sclerae, EOMI ENT: Present: hearing grossly normal - Respiratory Details: breathing is even and unlabored - Cardiovascular Details: skin warm and dry - Peripheral edema leg Peripheral Edema Comment(s): LUE edema noted, picc line in place. No localized erythema, induration, warmth or drainage noted Peripheral Edema: bilateral: Trace - Integumentary Integumentary: Absent: cyanotic, jaundiced - Neurologic Neurologic Comment(s): grossly intact - Musculoskeletal Musculoskeletal: Present: strength equal bilaterally - Psychiatric Psychiatric: Present: A&O x's 3, appropriate affect, intact judgment & insight - Labs CBC & Chem 7: 03/18/23 04:59 03/18/23 04:59 Labs: Abnormal Lab Results - Last 24 Hours (Table) 03/17/23 03/18/23 03/18/23 Range/Units 19:40 04:59 04:59 WBC 3.61 L (4.50-10.00) X 10*3/uL RBC 2.65 L (4.10-5.20) X 10*6/uL Hgb 8.8 L (12.0-15.0) d/dL Hct 25.8 L (37.2-46.3) % MCV 97.4 H (80.0-97.0) FL MCH 33.2 H (27.0-32.0) pg RDW 17.2 H (11.5-14.5) % Sodium 127 L (135-145) mmol/L Chloride 90 L (96-109) mmol/L BUN 8.3 L (9.0-27.0) mg/dL Creatinine 0.4 L (0.6-1.5) mg/dL BUN/Creatinine Ratio 20.75 H (12.00-20.00) Ratio Calcium 8.2 L (8.7-10.3) mg/dL U Creat (Microalbumin) 8.6 L (28.0-217.0) mg/dL Microalb/Creat Ratio <140 H (0-30) mg/g Cr Assessment and Plan (1) Edema of both lower legs Current Visit: Yes Status: Acute Priority: Medium Code(s): R60.0 - LOCALIZED EDEMA SNOMED Code(s): 827881966 (2) Lung cancer Current Visit: Yes Status: Acute Priority: High Code(s): C34.90 - MALIGNANT NEOPLASM OF UNSP PART OF UNSP BRONCHUS OR LUNG SNOMED Code(s): 764878273 (3) Swelling of left upper extremity Current Visit: Yes Status: Acute Priority: Medium Code(s): M79.89 - OTHER SPECIFIED SOFT TISSUE DISORDERS SNOMED Code(s): 389566682 (4) Anasarca Current Visit: Yes Status: Acute Priority: Medium Code(s): R60.1 - GENERALIZED EDEMA SNOMED Code(s): 351048433 Plan: Stage IVB non-small cell lung carcinoma: -Completed 5 fractions palliative RT to soft tissue mass in the right supraclavicular region -S/p completion cycle 2 of carboplatin/paclitaxel/pembrolizumab on 03/12/23. -Counts stable. Will f/u in clinic prior to proceeding to cycle 3 for reevaluation of symptoms LUE edema: -Patient states left upper extremity swelling began over the last 1 week, however patient did have some minor edema of extremity prior. Of note PICC line present in LUE. No signs of acute infection of PICC site. Pt afebrile. -LUE doppler negative for DVT -Serum protein and albumin low, 5.5 and 3.0 respectively. Urine protein/microalb umin WNL, no evidence of nephrotic syndorme. Serum creatinine normal, 0.4. -Do not believe extremity edema is r/t treatment. Patient does have poor vascular access, and if it's not thought that LUE edema is likely related to PICC line placement than would recommend keeping PICC in place, as removal would delay treatment. Will continue to monitor Anasarca: -IM managing. Continues on Lasix BID. BLE pressure dressings applied. Encouraged elevation of lower extremities when resting
[2023-03-19] MEDS: LEVOTHYROXINE 88 MCG TAB PO SCH (05:43)
[2023-03-19] MEDS: IPRATROPIUM 0.5 MG/2.5 ML NEBU INHALATION SCH ×4 (07:57→21:09)
[2023-03-19] MEDS: SYMBICORT 80-4.5 MCG INHALER INHALATION SCH ×2 (07:57→21:09)
[2023-03-19] MEDS: ATORVASTATIN 40 MG TAB PO SCH (08:13)
[2023-03-19] MEDS: PANTOPRAZOLE 40 MG TABLET PO SCH (08:13)
[2023-03-19] MEDS: POTASSIUM CHLORIDE ER 20 MEQ TAB.ER PO SCH ×2 (08:13→21:43)
[2023-03-19] MEDS: FUROSEMIDE 10 MG/ML 4 ML VIAL IV SCH ×2 (08:13→15:19)
[2023-03-19] MEDS: APIXABAN 5 MG TAB PO SCH ×2 (08:13→21:43)
--- NOTE | 2023-03-19 10:03 | CDI ---
Documentation Clarification Form Date: 03/19/2023 09:45:14 AM From: Tess Zuñiga RN CCDS Phone: [phone] Admit Date: 03/16/2023 10:13:00 PM Patient Name: Bhavya Navarrete Visit Number: [id number] Discharge Date: ATTENTION: The Clinical Documentation Specialists (CDI) and [facility] Coding Staff appreciate your assistance in clarifying documentation. Please respond to the clarification below the line at the bottom and electronically sign. The CDI & [facility] Coding staff will review the response and follow-up if needed. Please note: Queries are made part of the Legal Health Record. If you have any questions, please contact the author of this message via ITS. Dr. Nan James The patients principal diagnosis the diagnosis that was chiefly responsible for the admission - has not been clearly identified and clarification is requested. The patient presented with the following Left arm swelling and bilateral leg swelling. History/Risk factors: 77-year-old with history of Lung cancer started treatment with chemotherapy three weeks ago through left PICC line. Last chemotherapy was on Wednesday which was the second dose. Medical History: Non-small cell lung cancer, SVC syndrome, DVT and COPD. H&P, 03/17 Clinical Indicators: Lab findings: 03/16 Hgb 9.3; Hct 27.0; Lymphocytes 0.4; NA 123; Chloride 91; Uric acid 2.9; Calcium 8.0; Total Protein 5.5; Albumin 3.0; TSH 11.700 CXR: 03/16 Small bilateral pleural effusions with associated atelectasis. Right pleurx catheter in place. Left PICC identified. Similar right suprahilar/hilar opacity corresponding to known mass with volume loss. Left upper extremity Ultrasound: 03/17 No evidence of deep vein thrombosis Vital Signs: 03/16 B/P 130/77; HR 85; Temp 98.1F Oral; RR 16; SpO2 98% RA Treatment: Bilateral pressure dressings, IV Lasix BID, Elevation of lower extremities when resting; monitoring daily labs Consults: Oncology see above. In your professional opinion, can you please clarify which diagnosis, after study, was the reason chiefly responsible for the admission? [ X ] Anasarca due to (please specify)__Severe protein calorie malnutrition, Immunotherapy, and Mitral regurgitation [ ] Other, please specify [ ] Unable to determine (Template Last Revised: September 2020) MTDD
--- NOTE | 2023-03-19 16:39 | P.PN ---
Subjective Progress Note Date: 03/19/23 Principal diagnosis: extremity edema At today's visit patient is resting comfortably in bed. Reports improvement in LUE edema. Denies shortness of breath and pain. Patient is afebrile. SPO2 97% on RA Objective - Vital Signs Vital signs: Vital Signs Temp 98.8 F 03/19/23 13:59 Pulse 84 03/19/23 16:22 Resp 18 03/19/23 13:59 BP 124/78 03/19/23 13:59 Pulse Ox 97 03/19/23 13:59 FiO2 21 03/19/23 07:59 Intake & Output 03/18/23 03/19/23 03/19/23 18:59 06:59 18:59 Output Total 500 Balance -500 Output: Urine 500 Other: Voiding Method Bedside Commode # Voids 1 2 # Bowel Movements 1 - Constitutional General appearance: Present: average body habitus, no acute distress - EENT Eyes: Present: anicteric sclerae, EOMI ENT: Present: hearing grossly normal - Respiratory Details: breathing is even and unlabored - Cardiovascular Details: skin warm and dry - Peripheral edema leg Peripheral Edema Comment(s): bilateral lower extremities wrapped with compression bandages. Left upper extremity edema improved, no erythema or drainage noted - Integumentary Integumentary: Absent: cyanotic, jaundiced - Neurologic Neurologic Comment(s): grossly intact - Musculoskeletal Musculoskeletal: Present: strength equal bilaterally - Psychiatric Psychiatric: Present: A&O x's 3, appropriate affect, intact judgment & insight - Labs CBC & Chem 7: 03/18/23 04:59 03/18/23 04:59 Assessment and Plan (1) Edema of both lower legs Current Visit: Yes Status: Acute Priority: Medium Code(s): R60.0 - LOCALIZED EDEMA SNOMED Code(s): 716959279 (2) Lung cancer Current Visit: Yes Status: Acute Priority: High Code(s): C34.90 - M ALIGNANT NEOPLASM OF UNSP PART OF UNSP BRONCHUS OR LUNG SNOMED Code(s): 3 60174001 (3) Swelling of left upper extremity Current Visit: Yes Status: Acute Priority: Medium Code(s): M79.89 - OTHER SPECIFIED SOFT TISSUE DISORDERS SNOMED Code(s): 343003449 (4) Anasarca Current Visit: Yes Status: Acute Priority: Medium Code(s): R60.1 - GENERALIZED EDEMA SNOMED Code(s): 021452427 Plan: Stage IVB non-small cell lung carcinoma: -Completed 5 fractions palliative RT to soft tissue mass in the right supraclavicular region -S/p completion cycle 2 of carboplatin/paclitaxel/pembrolizumab on 03/12/23. -Counts stable. Will f/u in clinic prior to proceeding to cycle 3 for reevaluation of symptoms LUE edema: -Patient states left upper extremity swelling began over the last 1 week, however patient did have some minor edema of extremity prior. Of note PICC line present in LUE. No signs of acute infection of PICC site. Pt afebrile. -LUE doppler negative for DVT -Serum protein and albumin low, 5.5 and 3.0 respectively. Urine protein/microalbumin WNL, no evidence of nephrotic syndorme. Serum creatinine normal, 0.4. -Do not believe extremity edema is r/t treatment. Patient does have poor vascular access, and if it's not thought that LUE edema is likely related to PICC line placement than would recommend keeping PICC in place, as removal would delay treatment. Will continue to monitor Anasarca: -IM managing. Continues on Lasix BID. BLE pressure dressings applied. LUE edema improved. Encouraged elevation of lower extremities when resting attests: I have seen and examined pt, performed H&P, developed impression and plan of care. Discussed with dictator. Agree with documentation, dictated as a scribe.
[2023-03-20] MEDS: LEVOTHYROXINE 88 MCG TAB PO SCH (06:24)
[2023-03-20] MEDS: SYMBICORT 80-4.5 MCG INHALER INHALATION SCH ×2 (07:43→20:38)
[2023-03-20] MEDS: IPRATROPIUM 0.5 MG/2.5 ML NEBU INHALATION SCH ×2 (07:43→11:59)
[2023-03-20] MEDS: PANTOPRAZOLE 40 MG TABLET PO SCH (08:43)
[2023-03-20] MEDS: APIXABAN 5 MG TAB PO SCH ×2 (08:43→21:02)
[2023-03-20] MEDS: FUROSEMIDE 10 MG/ML 4 ML VIAL IV SCH (08:43)
[2023-03-20] MEDS: POTASSIUM CHLORIDE ER 20 MEQ TAB.ER PO SCH (08:43)
[2023-03-20] MEDS: ATORVASTATIN 40 MG TAB PO SCH (08:44)
[2023-03-20 09:28] LABS: HCT 27.9 % (37.2-46.3); HGB 9.4 d/dL (12.0-15.0); MCH 33.1 pg (27.0-32.0); MCHC 33.7 d/dL (32.0-37.0); MCV 98.2 FL (80.0-97.0); Mean Platelet Volume 10.1 FL (9.5-12.2); NRBC Per 100 WBC 0 X 10*3/uL (0.00-0.01); Platelet Count 198 X 10*3/uL (140-440); RBC 2.84 X 10*6/uL (4.10-5.20); WBC 4.71 X 10*3/uL (4.50-10.00)
[2023-03-20 11:03] LABS: ALT 18 U/L (8-44); AST 26 U/L (13-35); Albumin 3.7 d/dL (3.8-4.9); Albumin/Globulin Ratio 1.54 Ratio (1.60-3.17); Alkaline Phosphatase 84 U/L (41-126); Blood Urea Nitrogen 9.9 mg/dL (9.0-27.0); Calcium 8.7 mg/dL (8.7-10.3); Carbon Dioxide 27.9 mmol/L (21.6-31.8); Chloride 88 mmol/L (96-109); Globulin 2.4 d/dL (1.6-3.3); Glucose 92 mg/dL (70-110); Sodium 127 mmol/L (135-145); Total Bilirubin 0.3 mg/dL (0.3-1.2); Total Protein 6.1 d/dL (6.2-8.2)
[2023-03-21] MEDS: LEVOTHYROXINE 88 MCG TAB PO SCH (06:43)
[2023-03-21] MEDS: SYMBICORT 80-4.5 MCG INHALER INHALATION SCH ×2 (08:24→20:44)
[2023-03-21] MEDS: FUROSEMIDE 40 MG TAB PO SCH (09:02)
[2023-03-21] MEDS: ATORVASTATIN 40 MG TAB PO SCH (09:02)
[2023-03-21] MEDS: PANTOPRAZOLE 40 MG TABLET PO SCH (09:02)
[2023-03-21] MEDS: APIXABAN 5 MG TAB PO SCH ×2 (09:02→20:46)
[2023-03-21] MEDS: POTASSIUM CHLORIDE ER 20 MEQ TAB.ER PO SCH (09:02)
--- NOTE | 2023-03-21 09:27 | P.PN ---
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 for which she did receive 5 relation therapy and she did well after that, patient developed to have a significant pleural effusion for which a Pleurx catheter was placed and, patient underwent MRI of the brain did not show evidence of metastatic disease and she was started on her treatment on 02/21/2023 with carboplatin/Paclitaxel/Pembrolizumab also she did have a second cycle on 03/12/2023, patient contacted my office about 2 days ago stating that she had increased swelling in both lower extremity is in the left upper extremity where she has her PICC line placed for chemotherapy and immunotherapy, and the patient was started on Lasix 40 mg once every day along with potassiums accommodation however she restarted the medication instead her daughter brought her to the ER for evaluation she was found to have a significant anasarca in both lower extremities as well as left upper extremity underwent venous Doppler of the left upper extremity that did not show evidence of acute DVT, chest x-ray showed evidence of bilateral pleural effusion with compressive atelectasis, Pleurx catheter in place. Patient was admitted to the hospital she was started on Lasix 40 mg push every 12 hours, she was seen in consultation by hematology oncology as well we'll continue to monitor the patient very closely increase her protein intake, and with the patient is more stable she can be discharged home. 03/18: Patient has been seen by oncology. Patient was started on IV Lasix every 12 hours but did not receive on evening dose as it was held by her nurse so she wouldn't have to get up and urinate through the night. Dosing changed to 9 AM and 4 PM. The blood work reveals improvement of her sodium to 127, potassium is 3.6. Creatinine 0.4. WBC 3.6, hemoglobin 8.8, platelet count 221. 8/18: Patient remains afebrile, heart rate in the 80s and 90s, blood pressure 139/81. Home oxygen assessment revealed pulse ox of 82% on room air with exercise. Home oxygen therapy will be arranged today in anticipation of possible discharge tomorrow. Repeat blood work ordered for tomorrow. 03/20: Patient continues to do okay, we will discontinue Furosemide 40 mg IV push every 12 hours, start her on oral Furosemide 40 mg orally once every day, decreased potassium 20 mEq once every day, monitor the patient up with an output and daily weight, she is currently in contraction alkalosis, we'll encourage oral intake of fluid, continue oral intake of protein, monitor the patient sodium very closely. REVIEW OF SYSTEMS: Constitutional: No documented fever, no chills, no night sweats. No weight change. No weakness, fatigue or lethargy. No daytime sleepiness. HEENT: No headache. No blurred vision or double vision, no loss of vision. No loss of Hearing, no ringing in the ears, no dizziness. No nasal drainage or congestion. No epistaxis. No sore throat. Lungs: positive for shortness of breath, no cough, minimal sputum production. No wheezing. Reports dyspnea with activity. Cardiovascular: No chest pain, + lower extremity edema. No palpitations. No paroxysmal nocturnal dyspnea. No orthopnea. No lightheadedness or dizziness. No syncopal episodes. Abdominal: Reports no abdominal pain. No nausea, vomiting. No diarrhea. No constipation. No bloody or tarry stools reports loss of appetite. Genitourinary: No dysuria, increased frequency, urgency. No urinary retention. Musculoskeletal: No myalgias. No muscle weakness, no gait dysfunction, no frequent falls. No back pain. No neck pain. Integumentary: No wounds, no lesions. No rash or pruritus. No unusual bruisi ng. No change in hair or nails. Neurologic: No aphasia. No facial droop. No change in mentation. No head injury. No headache. No paralysis. No paresthesia. Psychiatric: No depression. No anxiety. No mood swings. Endocrine: No abnormal blood sugars. No weight change. PHYSICAL EXAMINATION: General: 77-year-old female laying down in bed in no current distress. HEENT: Head is atraumatic, normocephalic, pupils were equal round reactive to light and recommendation, extraocular muscle movement were intact, sclera nonicteric, conjunctivae were pale, mucous membranes of the mouth are somewhat dry. Neck: Supple, no JVP, normal carotid upstroke bilaterally, no lymphadenopathy. Chest: Decreased breath sounds at the bases, few rhonchi, no expiratory wheezes, no chest wall tenderness, no intercostal retractions. Heart: First heart sound is normal, second heart sounds normal. There is systolic ejection murmur 2/6 located in the left sternal border. Abdomen: Soft, nontender, nondistended, positive bowel sounds. Extremities: There is +3 edema no calf tenderness DP +2 bilaterally. Neurologic examination: Patient is awake alert and oriented x3 cranial nerves II-12 appear grossly intact, muscle power were 5 out of 5 in upper extremities and 5 out of 5 in bilateral lower extremities, deep tendon reflexes normal bilaterally. ASSESSMENT AND PLAN: 1. Anasarca with bilateral lower extremity edema. discontinue IV Furosemide and start Furosemide 40 mg po daily and decrease Potassium Chloride to 20 meq po daily increase protein intake , we will continue to monitor labs and current condition . 2. Stage IV NSCLCA. post 2nd cycle of Carboplatin/Paclitaxel/Pembrolizumab on 03/12/2023. Hematolog-Oncology consult appreciated. 3. 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 4. Bilateral pleural effusion. we will continue with Furosemide and we will continue to monitor. 5. Hypothyroidism. Continue patient on levothyroxine 88 g once every day. 6. Mixed hyperlipidemia. Continue atorvastatin 40 mg daily. 7. Osteoporosis. Currently on calcium 1200 mg every day, vitamin D 3 2000 units once every day, and Prolia 60 mg subcutaneous once every 6 month bone density scans up-to-date. 8. Right Internal Jugular Thrombus. we will continue with Eliquis 5 mg po bid 8. DVT prophylais. On Eliquis 5 mg po bid. 9. GI prophylaxis. Protonix 40 mg once every day. 10. Chronic hypoxic respiratory failure requiring home oxygen therapy. Home oxygen ordered for anticipated discharge this weekend. Pulse ox dropped to 82% with ambulation without oxygen. 11. Home in AM Objective - Vital Signs Vital signs: Vital Signs Temp 98.4 F 03/20/23 07:49 Pulse 83 03/20/23 12:09 Resp 16 03/20/23 08:40 BP 127/83 03/20/23 07:49 Pulse Ox 96 03/20/23 07:49 FiO2 21 03/19/23 07:59 Intake & Output 03/19/23 03/20/23 03/20/23 18:59 06:59 18:59 Other: Voiding Method Bedside Commode Bedside Commode # Voids 5 1 # Bowel Movements 0 - Labs CBC & Chem 7: 03/20/23 06:36 03/20/23 06:36 Labs: Abnormal Lab Results - Last 24 Hours (Table) 03/20/23 03/20/23 Range/Units 06:36 06:36 RBC 2.84 L (4.10-5.20) X 10*6/uL Hgb 9.4 L (12.0-15.0) d/dL Hct 27.9 L (37.2-46.3) % MCV 98.2 H (80.0-97.0) FL MCH 33.1 H (27.0-32.0) pg RDW 17.0 H (11.5-14.5) % Sodium 127 L (135-145) mmol/L Chloride 88 L (96-109) mmol/L Creatinine 0.5 L (0.6-1.5) mg/dL Total Protein 6.1 L (6.2-8.2) d/dL Albumin 3.7 L (3.8-4.9) d/dL Albumin/Globulin Ratio 1.54 L (1.60-3.17) Ratio
[2023-03-21 10:26] LABS: Anisocytosis Slight; Basophils % (A) 0 %; Eosinophils % (A) 1 %; HCT 27.4 % (34.0-46.0); HGB 9.3 gm/dL (11.4-16.0); Lymphocytes # (A) 0.5 k/uL (1.0-4.8); Lymphocytes % (A) 14 %; MCH 33.9 pg (25.0-35.0); MCHC 33.8 g/dL (31.0-37.0); MCV 100.2 fL (80.0-100.0); Macrocytosis Slight; Mean Platelet Volume 8.2; Monocytes # (A) 0.3 k/uL (0-1.0); Monocytes % (A) 8 %; Neutrophils # (A) 2.8 k/uL (1.3-7.7); Neutrophils % (A) 75 %; Platelet Count 165 k/uL (150-450); RBC 2.73 m/uL (3.80-5.40); RDW 16.6 % (11.5-15.5); WBC 3.7 k/uL (3.8-10.6)
[2023-03-21 11:04] LABS: ALT 17 U/L (4-34); AST 24 U/L (14-36); African American GFR (CKD) >90 (>60 ml/min/1.73 sqM); Albumin 3.4 g/dL (3.5-5.0); Albumin/Globulin Ratio 1.3; Alkaline Phosphatase 80 U/L (38-126); Anion Gap 8 mmol/L; Blood Urea Nitrogen 11 mg/dL (7-17); Calcium 8.6 mg/dL (8.4-10.2); Carbon Dioxide 29 mmol/L (22-30); Chloride 84 mmol/L (98-107); Globulin 2.7 g/dL; Glucose 100 mg/dL (74-99); Non-African American GFR(CKD) >90 (>60 ml/min/1.73 sqM); Sodium 121 mmol/L (137-145); Total Bilirubin 0.5 mg/dL (0.2-1.3); Total Protein 6.1 g/dL (6.3-8.2)
[2023-03-22] MEDS: LEVOTHYROXINE 88 MCG TAB PO SCH (06:10)
[2023-03-22] MEDS: SYMBICORT 80-4.5 MCG INHALER INHALATION SCH ×2 (07:50→19:52)
[2023-03-22] MEDS: POTASSIUM CHLORIDE ER 20 MEQ TAB.ER PO SCH (10:08)
[2023-03-22] MEDS: APIXABAN 5 MG TAB PO SCH ×2 (10:08→20:19)
[2023-03-22] MEDS: FUROSEMIDE 40 MG TAB PO SCH (10:08)
[2023-03-22] MEDS: PANTOPRAZOLE 40 MG TABLET PO SCH (10:08)
[2023-03-22] MEDS: ATORVASTATIN 40 MG TAB PO SCH (10:08)
[2023-03-22 13:07] LABS: African American GFR (CKD) >90 (>60 ml/min/1.73 sqM); Anion Gap 8 mmol/L; Blood Urea Nitrogen 9 mg/dL (7-17); Calcium 8.6 mg/dL (8.4-10.2); Carbon Dioxide 27 mmol/L (22-30); Chloride 86 mmol/L (98-107); Glucose 94 mg/dL (74-99); Non-African American GFR(CKD) >90 (>60 ml/min/1.73 sqM); Potassium 4.2 mmol/L (3.5-5.1); Sodium 121 mmol/L (137-145)
--- NOTE | 2023-03-22 13:18 | P.PN ---
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 for which she did receive 5 relation therapy and she did well after that, patient developed to have a significant pleural effusion for which a Pleurx catheter was placed and, patient underwent MRI of the brain did not show evidence of metastatic disease and she was started on her treatment on 02/21/2023 with carboplatin/Paclitaxel/Pembrolizumab also she did have a second cycle on 03/12/2023, patient contacted my office about 2 days ago stating that she had increased swelling in both lower extremity is in the left upper extremity where she has her PICC line placed for chemotherapy and immunotherapy, and the patient was started on Lasix 40 mg once every day along with potassiums accommodation however she restarted the medication instead her daughter brought her to the ER for evaluation she was found to have a significant anasarca in both lower extremities as well as left upper extremity underwent venous Doppler of the left upper extremity that did not show evidence of acute DVT, chest x-ray showed evidence of bilateral pleural effusion with compressive atelectasis, Pleurx catheter in place. Patient was admitted to the hospital she was started on Lasix 40 mg push every 12 hours, she was seen in consultation by hematology oncology as well we'll continue to monitor the patient very closely increase her protein intake, and with the patient is more stable she can be discharged home. 03/18: Patient has been seen by oncology. Patient was started on IV Lasix every 12 hours but did not receive on evening dose as it was held by her nurse so she wouldn't have to get up and urinate through the night. Dosing changed to 9 AM and 4 PM. The blood work reveals improvement of her sodium to 127, potassium is 3.6. Creatinine 0.4. WBC 3.6, hemoglobin 8.8, platelet count 221. 8/18: Patient remains afebrile, heart rate in the 80s and 90s, blood pressure 139/81. Home oxygen assessment revealed pulse ox of 82% on room air with exercise. Home oxygen therapy will be arranged today in anticipation of possible discharge tomorrow. Repeat blood work ordered for tomorrow. 03/20: Patient continues to do okay, we will discontinue Furosemide 40 mg IV push every 12 hours, start her on oral Furosemide 40 mg orally once every day, decreased potassium 20 mEq once every day, monitor the patient up with an output and daily weight, she is currently in contraction alkalosis, we'll encourage oral intake of fluid, continue oral intake of protein, monitor the patient sodium very closely. 03/22: Yesterday, IV Lasix changed to oral and yesterday she had a drop in her sodium to 121. Patient also noted to be on a heart healthy diet which will be changed to regular. Serum osmolality, urine osmolality and urine sodium ordered. Repeat sodium today came back at 121, potassium 4.2, chloride 86, creatinine 0.45. Consult with nephrology will be added for hyponatremia. REVIEW OF SYSTEMS: Constitutional: No documented fever, no chills, no night sweats. No weight change. No weakness, fatigue or lethargy. No daytime sleepiness. HEENT: No headache. No blurred vision or double vision, no loss of vision. No loss of Hearing, no ringing in the ears, no dizziness. No nasal drainage or congestion. No epistaxis. No sore throat. Lungs: positive for shortness of breath, no cough, minimal sputum production. No wheezing. Reports dyspnea with activity. Cardiovascular: No chest pain, + lower extremity edema-improved. No palpitations. No paroxysmal nocturnal dyspnea. No orthopnea. No lightheadedness or dizziness. No syncopal episodes. Abdominal: Reports no abdominal pain. No nausea, vomiting. No diarrhea. No constipation. No bloody or tarry stools reports loss of appetite. Genitourinary: No dysuria, increased frequency, urgency. No urinary retention. Musculoskeletal: No myalgias. No muscle weakness, no gait dysfunction, no frequent falls. No back pain. No neck pain. Integumentary: No wounds, no lesions. No rash or pruritus. No unusual bruising. No change in hair or nails. Neurologic: No aphasia. No facial droop. No change in mentation. No head injury. No headache. No paralysis. No paresthesia. Psychiatric: No depression. No anxiety. No mood swings. Endocrine: No abnormal blood sugars. No weight change. PHYSICAL EXAMINATION: General: 77-year-old female laying down in bed in no current distress. HEENT: Head is atraumatic, normocephalic, pupils were equal round reactive to light and recommendation, extraocular muscle movement were intact, sclera nonicteric, conjunctivae were pale, mucous membranes of the mouth are somewhat dry. Neck: Supple, no JVP, normal carotid upstroke bilaterally, no lymphadenopathy. Chest: Decreased breath sounds at the bases, few rhonchi, no expiratory wheezes, no chest wall tenderness, no intercostal retractions. Heart: First heart sound is normal, second heart sounds normal. There is syst olic ejection murmur 2/6 located in the left sternal border. Abdomen: Soft, nontender, nondistended, positive bowel sounds. Extremities: There is +3 edema no calf tenderness DP +2 bilaterally. Neurologic examination: Patient is awake alert and oriented x3 cranial nerves II-12 appear grossly intact, muscle power were 5 out of 5 in upper extremities and 5 out of 5 in bilateral lower extremities, deep tendon reflexes normal bilaterally. ASSESSMENT AND PLAN: 1. Anasarca with bilateral lower extremity edema. discontinue IV Furosemide and start Furosemide 40 mg po daily and decrease Potassium Chloride to 20 meq po daily increase protein intake , we will continue to monitor labs and current condition . 2. Stage IV NSCLCA. post 2nd cycle of Carboplatin/Paclitaxel/Pembrolizumab on 03/12/2023. Hematolog-Oncology consult appreciated. 3. 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 4. Bilateral pleural effusion. we will continue with Furosemide and we will continue to monitor. 5. Hypothyroidism. Continue patient on levothyroxine 88 g once every day. 6. Mixed hyperlipidemia. Continue atorvastatin 40 mg daily. 7. Osteoporosis. Currently on calcium 1200 mg every day, vitamin D 3 2000 units once every day, and Prolia 60 mg subcutaneous once every 6 month bone density scans up-to-date. 8. Right Internal Jugular Thrombus. we will continue with Eliquis 5 mg po bid 9. DVT prophylais. On Eliquis 5 mg po bid. 10. GI prophylaxis. Protonix 40 mg once every day. 11. Chronic hypoxic respiratory failure requiring home oxygen therapy. Home oxygen ordered for anticipated discharge this weekend. Pulse ox dropped to 82% with ambulation without oxygen. 12. 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 Serum osmolality, urine osmolality, urine sodium, consult with nephrology Impression and plan of care have been directed as dictated by the signing physician. Seble Estes nurse practitioner acting as scribe for signing physician. Objective - Vital Signs Vital signs: Vital Signs Temp 98.2 F 03/22/23 07:09 Pulse 80 03/22/23 07:09 Resp 17 03/22/23 07:09 BP 138/77 03/22/23 07:09 Pulse Ox 92 L 03/22/23 07:51 FiO2 21 03/19/23 07:59 Intake & Output 03/21/23 03/22/23 03/22/23 18:59 06:59 18:59 Other: Voiding Method Bedside Commode Bedside Commode Bedside Commode # Voids 2 1 - Labs CBC & Chem 7: 03/21/23 08:53 03/22/23 11:31
--- NOTE | 2023-03-22 13:44 | P.PN ---
Subjective Progress Note Date: 03/22/23 Principal diagnosis: NSCLC, hyponatremia, edema In follow-up today patient denies any acute physical complaints, she is anxious about going home, swelling in the arms is down, swelling in the legs is nearly resolved. No respiratory complaints today Objective - Vital Signs Vital signs: Vital Signs Temp 98.2 F 03/22/23 07:09 Pulse 80 03/22/23 07:09 Resp 17 03/22/23 07:09 BP 138/77 03/22/23 07:09 Pulse Ox 92 L 03/22/23 07:51 FiO2 21 03/19/23 07:59 Intake & Output 03/21/23 03/22/23 03/22/23 18:59 06:59 18:59 Other: Voiding Method Bedside Commode Bedside Commode # Voids 2 1 - Constitutional General appearance: Present: average body habitus, cooperative, no acute distress - EENT Eyes: Present: anicteric sclerae, EOMI ENT: Present: hearing grossly normal - Respiratory Details: resp even and unlabored at rest - Cardiovascular Details: BUE swelling, L>R, improved - Peripheral edema leg Peripheral Edema: bilateral: Trace - Integumentary Integumentary: Present: normal - Neurologic Neurologic: Present: CNII-XII intact (grossly) - Musculoskeletal Musculoskeletal: Present: strength equal bilaterally - Psychiatric Psychiatric: Present: A&O x's 3, appropriate affect, intact judgment & insight - Labs CBC & Chem 7: 03/21/23 08:53 03/22/23 11:31 Labs: Abnormal Lab Results - Last 24 Hours (Table) 03/21/23 03/21/23 Range/Units 08:53 08:53 WBC 3.7 L (3.8-10.6) k/uL RBC 2.73 L (3.80-5.40) m/uL Hgb 9.3 L (11.4-16.0) gm/dL Hct 27.4 L (34.0-46.0) % MCV 100.2 H (80.0-100.0) fL RDW 16.6 H (11.5-15.5) % Lymphocytes # 0.5 L (1.0-4.8) k/uL Sodium 121 L (137-145) mmol/L Chloride 84 L (98-107) mmol/L Creatinine 0.47 L (0.52-1.04) mg/dL Glucose 100 H (74-99) mg/dL Total Protein 6.1 L (6.3-8.2) g/dL Albumin 3.4 L (3.5-5.0) g/dL Assessment and Plan (1) Hyponatremia Current Visit: Yes Status: Acute Priority: High Code(s): E87.1 - HYPO- OSMOLALITY AND HYPONATREMIA SNOMED Code(s): 88704139 (2) Anasarca Current Visit: Yes Status: Acute Priority: Medium Code(s): R60.1 - GENERALIZED EDEMA SNOMED Code(s): 831788303 (3) Lung cancer Current Visit: Yes Status: Acute Priority: High Code(s): C34.90 - MALIGNANT NEOPLASM OF UNSP PART OF UNSP BRONCHUS OR LUNG SNOMED Code(s): 203523135 (4) SVC syndrome Current Visit: No Status: Chronic Priority: Low Code(s): I87.1 - COMPRESSION OF VEIN SNOMED Code(s): 13399148 Plan: Hyponatremia -SIADH -Persistent, sodium 121 today -Nephrology consult did, pending assessment and recommendations Anasarca -Improved with Lasix -IM managing Stage IV B non-small cell lung cancer -Status post radiation for SVC syndrome, Symptoms much improved -Status post 2 cycles of carbo/Taxol/pembrolizumab. Patient tolerating overall well -Follow-up appointment prior to resuming any therapy, documented in the discharge plan attests: I have seen and examined patient, performed H&P, developed impression and plan of care. Discussed with dictator. Agree with documentation, dictated as a scribe
[2023-03-22] MEDS ORDERED: TOLVAPTAN 15 MG TABLET PO ONE (16:06)
[2023-03-23] MEDS: LEVOTHYROXINE 88 MCG TAB PO SCH (05:46)
[2023-03-23] MEDS: SYMBICORT 80-4.5 MCG INHALER INHALATION SCH (07:47)
[2023-03-23 09:06] LABS: Blood Urea Nitrogen 6.8 mg/dL (9.0-27.0); Carbon Dioxide 26.6 mmol/L (21.6-31.8); Chloride 93 mmol/L (96-109); Glucose 84 mg/dL (70-110); Magnesium 1.4 mg/dL (1.5-2.4); Potassium 3.8 mmol/L (3.5-5.5); Sodium 132 mmol/L (135-145)
[2023-03-23] MEDS: FUROSEMIDE 40 MG TAB PO SCH (09:18)
[2023-03-23] MEDS: ATORVASTATIN 40 MG TAB PO SCH (09:18)
[2023-03-23] MEDS: POTASSIUM CHLORIDE ER 20 MEQ TAB.ER PO SCH (09:18)
[2023-03-23] MEDS: APIXABAN 5 MG TAB PO SCH (09:18)
[2023-03-23] MEDS: PANTOPRAZOLE 40 MG TABLET PO SCH (09:19)
[2023-03-23] MEDS ORDERED: DEXTROSE 5% IN WATER 1,000 ML IV SCH (10:00)
[2023-03-23 10:33] VITALS: BMI 21.9
[2023-03-23 11:55] VITALS: BP 130/73; RESP 16; TEMP 99.3
--- NOTE | 2023-03-23 13:29 | P.NPCON ---
History of Present Illness - Reason for Consult hyponatremia - History of Present Illness Reason for consultation: Hyponatremia History of present illness: Patient is a 77-year-old female seen in renal consultation for hyponatremia. Patient came in the hospital due to generalized edema. Patient's his oral intake has been good. She denies any vomiting or diarrhea. No history of diabetes. Denies any history of coronary artery disease. She denies use of nonsteroidals. She does admit to drinking about 3-4 glasses of water, one Dr. Pepper, 2 cups of tea daily. Sodium level on admission was 123 and improved to 127. Last 2 days it has been 121. She did receive a dose of Samsca yesterday and sodium this morning was 132. She received a few hours of D5W and repeat sodium level now is 128. Patient does have history of lung cancer and is maintained on chemotherapy. Patient states she completed radiation. No chest pain or shortness of breath. Lower extremity wrapped. No drainage. Vital signs are stable. General: No acute distress. HEENT: Head exam is unremarkable. LUNGS: No audible rhonchi or wheezes. HEART: Rate and Rhythm are regular. ABDOMEN: Soft, nontender. EXTREMITITES: Lower extremities wrapped. Trace edema. Past Medical History Past Medical History: Cancer, COPD, Deep Vein Thrombosis (DVT), GERD/Reflux, Hyperlipidemia, Thyroid Disorder Additional Past Medical History / Comment(s): finished medrol dose pack January 2023,Heart Murmur-mitral & aortic regurgitation., non-small cell lung cancer, SVC syndrome, emphysema. osteoporosis., DVT right IJ, constipation, states rash on abdomen. History of Any Multi-Drug Resistant Organisms: None Reported Past Surgical History: No Surgical Hx Reported Additional Past Surgical History / Comment(s): pleurx cath inserted 02-16-23,Colonoscopy, thoracentesis x2, back pain injections, picc - pulled out Past Anesthesia/Blood Transfusion Reactions: No Reported Reaction, Family History of Problems w/ Anesthesia Additional Past Anesthesia/Blood Transfusion Reaction / Comment(s): Mom allergic to a lot of anesthetics. Past Psychological History: No Psychological Hx Reported Smoking Status: Former smoker Past Alcohol Use History: Rare Additional Past Alcohol Use History / Comment(s): Quit smoking November 2022., started smoking at 30 yrs old, hx of 7 cigarettes/day Past Drug Use History: None Reported - Past Family History Father Family Medical History: Cancer Mother Family Medical History: COPD, Hyperlipidemia, Hypertension Medications and Allergies Home Medications Medication Instructions Recorded Confirmed Type Atorvastatin [Lipitor] 40 mg PO DAILY 12/24/22 03/17/23 History Pantoprazole [Protonix] 40 mg PO AC-BRKFST #30 tab 12/27/22 03/17/23 Rx Albuterol Inhaler [Ventolin Hfa 2 puff INHALATION RT-QID PRN 01/20/23 03/17/23 History Inhaler] Fluticasone/Umeclidin/Vilanter 1 puff INHALATION RT-DAILY 01/20/23 03/17/23 History [Trelegy Ellipta 200-62.5-25] Levothyroxine Sodium [Synthroid] 88 mcg PO DAILY 01/20/23 03/17/23 History Apixaban [Eliquis] 5 mg PO BID 01/23/23 03/17/23 History Acetaminophen [Tylenol Arthritis] 1,300 mg PO Q8H PRN 02/12/23 03/17/23 History HYDROcodone/APAP 5-325MG [[place] 1 tab PO Q12H PRN 03/17/23 03/17/23 History 5-325] Furosemide [Lasix] 40 mg PO DAILY #30 tab 03/21/23 Rx Potassium Chloride ER [K-Dur 20] 20 meq PO DAILY #30 tab 03/21/23 Rx Allergies Allergy/AdvReac Type Severity Reaction Status Date / Time No Known Allergies Allergy Verified 03/17/23 08:11 Physical Exam Vitals: Vital Signs Temp Pulse Resp BP Pulse Ox 03/23/23 11:54 99.3 F 80 16 130/73 96 03/23/23 07:49 96 03/23/23 07:03 98.6 F 84 17 124/76 96 03/23/23 01:11 98.5 F 88 15 122/75 95 03/22/23 20:20 16 03/22/23 19:39 98.8 F 91 16 128/75 96 Intake and Output 03/22/23 03/23/23 03/23/23 22:59 06:59 14:59 Other: Voiding Method Bedside Commode Bedside Commode # Voids 4 3 2 Weight 54.431 kg Results - Lab Results Most recent lab results Calcium 9.0 mg/dL (8.7-10.3) 03/23/23 05:44 Magnesium 1.4 mg/dL (1.5-2.4) L 03/23/23 05:44 Urine Creatinine 6.7 mg/dL 03/17/23 19:40 Urine Total Protein 11.0 mg/dL 03/17/23 19:40 03/21/23 08:53 03/23/23 11:30 Assessment and Plan Plan: Assessment: 1. Hypervolemic hyponatremia. 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 Urine sodium low at 29 and urine osmolality 195. TSH elevated at 11.7 dated 03/16/2023. Cortisol level not low. Status post and [place]. Sodium level 132 this morning. Received D5W for about 3 hours and sodium now is 128. 2. Lung cancer maintain on chemotherapy. 3. Hypomagnesemia from diuresis. 4. Edema. Improved with diuresis. 5. Hypothyroidism maintained on Synthroid. Plan: Hep-Lock IV fluids. Encourage oral intake. Maintain Lasix. Advised patient to maintain fluid restriction of less than 40-45 ounces per day. Replace magnesium. Add oral magnesium oxide. Repeat BMP and magnesium level 2-3 days post discharge. Follow-up outpatient 1 week post discharge. Thank you for the consultation. I will continue to follow the patient during her hospital stay.
[2023-03-23] MEDS: MAGNESIUM SULFATE-D5W PMX 1 GM in DEXTROSE/WATER 1 100ML.BAG IVPB SCH ×2 (13:57→15:13)
--- NOTE | 2023-03-23 13:57 | P.DS ---
Providers Date of admission: 03/16/23 22:13 Expected date of discharge: 03/23/23 Attending physician: Nan James Consults: 03/16/23 22:18 Consult Physician Routine Consulting Provider: Ramirez Mercado Consult Reason/Comments: lung cancer, left upper extremity edema PICC Do you want consulting provider notified?: Yes, Notify in am Primary care physician: Nan James Hospital Course: HISTORY OF PRESENT ILLNESS: This is a 77-year-old female with a previous medical history significant for hyperlipidemia, hypothyroidism, chronic tobacco use and dependence with emphysema in the upper lobes, history of mitral regurgitation and aortic regurgitation, patient was receiving diagnosed of having none small cell lung cancer stage IV be after she was found to have a significant right mainstem bronchus biopsy during bronchoscopy showed evidence of non-small cell lung cancer patient was seen and evaluated by hematology oncology of [facility] 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 for which she did receive 5 relation therapy and she did well after that, patient developed to have a significant pleural effusion for which a Pleurx catheter was placed and, patient underwent MRI of the brain did not show evidence of metastatic disease and she was started on her treatment on 02/21/2023 with carboplatin/Paclitaxel/Pembrolizumab also she did have a second cycle on 03/12/2023, patient contacted my office about 2 days ago stating that she had increased swelling in both lower extremity is in the left upper extremity where she has her PICC line placed for chemotherapy and immunotherapy, and the patient was started on Lasix 40 mg once every day along with potassiums accommodation however she restarted the medication instead her daughter brought her to the ER for evaluation she was found to have a significant anasarca in both lower extremities as well as left upper extremity underwent venous Doppler of the left upper extremity that did not show evidence of acute DVT, chest x-ray showed evidence of bilateral pleural effusion with compressive atelectasis, Pleurx catheter in place. Patient was admitted to the hospital she was started on Lasix 40 mg push every 12 hours, she was seen in consultation by hematology oncology as well we'll continue to monitor the patient very closely increase her protein intake, and with the patient is more stable she can be discharged home. 03/18: Patient has been seen by oncology. Patient was started on IV Lasix every 12 hours but did not receive on evening dose as it was held by her nurse so she wouldn't have to get up and urinate through the night. Dosing changed to 9 AM and 4 PM. The blood work reveals improvement of her sodium to 127, potassium is 3.6. Creatinine 0.4. WBC 3.6, hemoglobin 8.8, platelet count 221. 03/19: Patient remains afebrile, heart rate in the 80s and 90s, blood pressure 139/81. Home oxygen assessment revealed pulse ox of 82% on room air with exercise. Home oxygen therapy will be arranged today in anticipation of possible discharge tomorrow. Repeat blood work ordered for tomorrow. 03/20: Patient continues to do okay, we will discontinue Furosemide 40 mg IV push every 12 hours, start her on oral Furosemide 40 mg orally once every day, decreased potassium 20 mEq once every day, monitor the patient up with an output and daily weight, she is currently in contraction alkalosis, we'll encourage oral intake of fluid, continue oral intake of protein, monitor the patient sodium very closely. 03/22: Yesterday, IV Lasix changed to oral and yesterday she had a drop in her sodium to 121. Patient also noted to be on a heart healthy diet which will be changed to regular. Serum osmolality, urine osmolality and urine sodium ordered. Repeat sodium today came back at 121, potassium 4.2, chloride 86, creatinine 0.45. Consult with nephrology will be added for hyponatremia. 03/23: Patient has been seen by Dr. Mauro the period sodium this morning was 132 and repeat 128. Patient has been cleared by Dr. Triplett for discharge after magnesium replaced which came back at 1.4. Patient remains afebrile, heart rate in the 80s, blood pressure 130/73 and pulse ox 96% on room air. Patient will be discharged home today in stable condition. DISCHARGE DIAGNOSES: 1. Anasarca with bilateral lower extremity edema. 2. Stage IV NSCLCA. 3. 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 4. Bilateral pleural effusion. 5. Hypothyroidism. 6. Mixed hyperlipidemia. 7. Osteoporosis. 8. Right Internal Jugular Thrombus. 9. Chronic hypoxic respiratory failure requiring home oxygen therapy. Discharge plan: Home Greater than 35 minutes was utilized and coordinating patient's discharge. Impression and plan of care have been directed as dictated by the signing physician. Seble Estes nurse practitioner acting as scribe for signing physician. Plan - Discharge Summary Discharge Rx Participant: Yes New Discharge Prescriptions: New Potassium Chloride ER [K-Dur 20] 20 meq PO DAILY #30 tab Furosemide [Lasix] 40 mg PO DAILY #30 tab Magnesium Oxide [Magox 400] 400 mg PO DAILY #90 tablet Continue Atorvastatin [Lipitor] 40 mg PO DAILY Apixaban [Eliquis] 5 mg PO BID Acetaminophen [Tylenol Arthritis] 1,300 mg PO Q8H PRN PRN Reason: Pain Pantoprazole [Protonix] 40 mg PO AC-BRKFST #30 tab Albuterol Inhaler [Ventolin Hfa Inhaler] 2 puff INHALATION RT-QID PRN PRN Reason: Shortness Of Breath Levothyroxine Sodium [Synthroid] 88 mcg PO DAILY Fluticasone/Umeclidin/Vilanter [Trelegy Ellipta 200-62.5-25] 1 puff INHALATION RT-DAILY HYDROcodone/APAP 5-325MG [[place] 5-325] 1 tab PO Q12H PRN PRN Reason: Pain Discharge Medication List Atorvastatin [Lipitor] 40 mg PO DAILY 12/24/22 [History] Pantoprazole [Protonix] 40 mg PO AC-BRKFST #30 tab 12/27/22 [Rx] Albuterol Inhaler [Ventolin Hfa Inhaler] 2 puff INHALATION RT-QID PRN 01/20/23 [History] Fluticasone/Umeclidin/Vilanter [Trelegy Ellipta 200-62.5-25] 1 puff INHALATION RT-DAILY 01/20/23 [History] Levothyroxine Sodium [Synthroid] 88 mcg PO DAILY 01/20/23 [History] Apixaban [Eliquis] 5 mg PO BID 01/23/23 [History] Acetaminophen [Tylenol Arthritis] 1,300 mg PO Q8H PRN 02/12/23 [History] HYDROcodone/APAP 5-325MG [[place] 5-325] 1 tab PO Q12H PRN 03/17/23 [History] Furosemide [Lasix] 40 mg PO DAILY #30 tab 03/21/23 [Rx] Potassium Chloride ER [K-Dur 20] 20 meq PO DAILY #30 tab 03/21/23 [Rx] Magnesium Oxide [Magox 400] 400 mg PO DAILY #90 tablet 03/23/23 [Rx] Follow up Appointment(s)/Referral(s): Nan James MD [Primary Care Provider] - 1 Week Ramirez Mercado MD [Family Provider] - 04/01/23 2:30 pm [facility] [NON-STAFF] - 1 Week [facility] [NON-STAFF] - 1 Week Activity/Diet/Wound Care/Special Instructions: Fluid restriction of less than 40-45 ounces per day Discharge Disposition: HOME WITH HOME HEALTH SERVICES
[2023-03-23 14:15] VITALS: PULSE 95
--- NOTE | 2023-03-23 16:23 | P.PN ---
Subjective Progress Note Date: 03/23/23 Principal diagnosis: NSCLC, hyponatremia, edema In follow-up today patient Reports she feels pretty good, generalized swelling continues to improve, she is tolerating oral intake. Her sodium is 132 today. She has been seen by Nephrology Objective - Vital Signs Vital signs: Vital Signs Temp 99.3 F 03/23/23 11:54 Pulse 95 03/23/23 14:14 Resp 16 03/23/23 11:54 BP 130/73 03/23/23 11:54 Pulse Ox 96 03/23/23 14:14 FiO2 21 03/19/23 07:59 Intake & Output 03/22/23 03/23/23 03/23/23 18:59 06:59 18:59 Weight 54.431 kg Other: Voiding Method Bedside Commode Bedside Commode Bedside Commode # Voids 4 3 2 - Constitutional General appearance: Present: average body habitus, cooperative, no acute distress - EENT Eyes: Present: anicteric sclerae, EOMI ENT: Present: hearing grossly normal - Respiratory Respiratory: bilateral: diminished - Cardiovascular Heart sounds: normal: S1, S2 - Peripheral edema leg Peripheral Edema: bilateral: Trace - Gastrointestinal General gastrointestinal: Present: normal bowel sounds, soft - Neurologic Neurologic: Present: CNII-XII intact - Musculoskeletal Musculoskeletal: Present: strength equal bilaterally - Psychiatric Psychiatric: Present: A&O x's 3, appropriate affect, intact judgment & insight - Labs CBC & Chem 7: 03/21/23 08:53 03/23/23 11:30 Labs: Abnormal Lab Results - Last 24 Hours (Table) 03/22/23 03/23/23 03/23/23 Range/Units 20:30 05:44 11:30 Sodium 132 L 128 L (135-145) mmol/L Chloride 93 L (96-109) mmol/L Anion Gap 12.40 H (4.00-12.00) mmol/L BUN 6.8 L (9.0-27.0) mg/dL Creatinine 0.5 L (0.6-1.5) mg/dL Magnesium 1.4 L (1.5-2.4) mg/dL Ur Random Sodium 29 L (40-220) mmol/L Assessment and Plan (1) Hyponatremia Current Visit: Yes Status: Acute Priority: High Code(s): E87.1 - HYPO- OSMOLALITY AND HYPONATREMIA SNOMED Code(s): 26116603 (2) Anasarca Current Visit: Yes Status: Acute Priority: Medium Code(s): R60.1 - GENERALIZED EDEMA SNOMED Code(s): 272733506 (3) Lung cancer Current Visit: Yes Status: Acute Priority: High Code(s): C34.90 - NILAY GNANT NEOPLASM OF UNSP PART OF UNSP BRONCHUS OR LUNG SNOMED Code(s): 632282801 (4) SVC syndrome Current Visit: No Status: Chronic Priority: Low Code(s): I87.1 - COMPRESSION OF VEIN SNOMED Code(s): 75897669 Plan: Hyponatremia -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 Patient tolerating overall well -Follow-up appointment prior to resuming any therapy, documented in the discharge plan. Will cont to monitor mag and Na+ levels
[2023-03-24] MEDS ORDERED: MAGNESIUM OXIDE 400 MG TAB PO SCH (09:00)
== END 2023-03-23 18:45 | disposition home health service (06) | DRG 641 ==
LOC: EC 19:25 → OBSVTOIN 22:13 → 6NMEDSUR 22:13 → 5NMEDONC 23:23
PROVIDERS: ADMIT Internal Medicine; ATTEND Internal Medicine
DX: E43 Unspecified severe protein-calorie malnutrition (principal); C34.90 Malignant neoplasm of unspecified part of unspecified bronchus or lung; E22.2 Syndrome of inappropriate secretion of antidiuretic hormone; I82.C11 Acute embolism and thrombosis of right internal jugular vein; I87.1 Compression of vein; J90 Pleural effusion, not elsewhere classified; J96.11 Chronic respiratory failure with hypoxia; J98.11 Atelectasis; R60.1 Generalized edema; E03.9 Hypothyroidism, unspecified; T50.995A Adverse effect of other drugs, medicaments and biological substances, initial encounter; T50.2X5A Adverse effect of carbonic-anhydrase inhibitors, benzothiadiazides and other diuretics, initial encounter; E78.2 Mixed hyperlipidemia; E83.42 Hypomagnesemia; E87.70 Fluid overload, unspecified; I08.0 Rheumatic disorders of both mitral and aortic valves; F17.210 Nicotine dependence, cigarettes, uncomplicated; J43.9 Emphysema, unspecified; M81.0 Age-related osteoporosis without current pathological fracture; Z68.21 Body mass index [BMI] 21.0-21.9, adult; Z79.01 Long term (current) use of anticoagulants; Z79.890 Hormone replacement therapy; Z79.899 Other long term (current) drug therapy; Z82.49 Family history of ischemic heart disease and other diseases of the circulatory system; Z82.5 Family history of asthma and other chronic lower respiratory diseases; Z92.21 Personal history of antineoplastic chemotherapy; Z92.3 Personal history of irradiation; R59.0 Localized enlarged lymph nodes
CPT/HCPCS: 36415; 71046; 80048; 80053; 81003; 82043; 82533; 82570; 83735; 83880; 83930; 83935; 84156; 84295; 84300; 84439; 84443; 84484; 84550; 85025; 85027; 85610; 85730; 93005; 94640; 94760; 96374; 99285